=== PATIENT | female | born 1975 | race Caucasian/White ===

== ENCOUNTER 2023-09-07 11:59 | Emergency (ER) | payer OTHER, SELFPAY ==
[2023-09-07 12:21] VITALS: BP 121/92; PULSE 80; RESP 20; TEMP 36.8; O2SAT 98; BMI 30.2
[2023-09-07 13:31] VITALS: BP 149/97; PULSE 75; RESP 18; TEMP 36.6; O2SAT 99; BMI 30.2
[2023-09-07] MEDS: KETOROLAC TROMETHAMINE 30 MG/ML VIAL IM (14:27)
--- NOTE | 2023-09-07 14:30 | ED_ITS ---
HPI - General Adult General Chief complaint: Back Pain/Injury Stated complaint: BACK PAIN Time Seen by Provider: 09/07/23 13:26 Source: patient Mode of arrival: walk-in Limitations: no limitations History of Present Illness HPI narrative: Patient is a 48-year-old female who is presenting to the Emergency Room with chief complaint Of acute on chronic left lower back pain with radiation into the left buttock into the left lateral thigh that goes down into the knee. Patient has had this on and off in the past. Patient has had 3 lower lumbar surgeries in the past. Patient stated this started a few weeks ago, but has worsened yesterday or today. Patient has no urinary or bowel complaints. Patient has no loss of urine or pants. Patient has an appointment with Dr. Melendez tomorrow. Patient is here with her , patient drove to the Emergency Room. Patient has had 3 spinal surgeries in [place]. Patient lives in [place]. No specific injury, lifting, twisting or turning or any other acute events. . All systems are negative except as noted/marked. All systems reviewed and otherwise negative. . Nurses note and vital signs reviewed and patient is not hypoxic. General: The patient appears well and in no apparent distress. Patient is resting comfortably on cart. Patient is not toxic, lethargic, or listless Skin: Warm, dry, no pallor noted. There is no rash noted. No petechiae, purpura. Head: Normocephalic, atraumatic Eye: Normal conjunctiva, no drainage, EOMI. PERRL Ears, Nose, Mouth, and Throat: oral mucosa is moist. Cardiovascular: Regular Rate and Rhythm, no murmur, gallop, rub Respiratory: Patient is in no distress, no accessory muscle use, lungs are clear to auscultation, no wheezing, rales or rhonchi Back: non-tender, no CVA tenderness bilaterally to percussion. No CT LS midline pain GI: soft, obese; no tenderness to palpation, no masses appreciated. No rebound, guarding, or rigidity noted. No flank pain bilateral, No distention Musculoskeletal: Patient has full range of motion of all of the extremities, no motor, sensory, or focal neurological deficits Neurological: A&O x3, normal speech Psychiatric: Cooperative Related Data Home Medications Medication Instructions Recorded Confirmed aripiprazole 20 mg tablet 25 mg PO DAILY 09/07/23 09/07/23 duloxetine 60 mg capsule,delayed 120 mg PO DAILY 09/07/23 09/07/23 release gabapentin 600 mg tablet 600 mg PO TID 09/07/23 09/07/23 lorazepam 1 mg tablet 1 mg PO TID PRN dyspnea 09/07/23 09/07/23 lurasidone 40 mg tablet (Latuda) 40 mg PO DAILY 09/07/23 09/07/23 trazodone 100 mg tablet 200 mg PO DAILY 09/07/23 09/07/23 vortioxetine 10 mg tablet 10 mg PO DAILY 09/07/23 09/07/23 (Trintellix) Previous Rx's Medication Instructions Recorded hydrocodone 5 mg-acetaminophen 325 1 tab PO Q4H PRN pain #6 tabs 09/07/23 mg tablet methocarbamol 500 mg tablet 500 mg PO Q8H PRN muscle pain #10 09/07/23 tabs Allergies Allergy/AdvReac Type Severity Reaction Status Date / Time amoxicillin Allergy Hives Verified 09/07/23 13:26 doxycycline Allergy Hives Verified 09/07/23 13:26 pregabalin [From Lyrica] Allergy Hives Verified 09/07/23 13:26 vancomycin Allergy Hives Verified 09/07/23 13:26 ziprasidone [From Geodon] Allergy Hives Verified 09/07/23 13:26 PFSH PFSH Social History Smoking status: Current every day smoker Exam Constitutional Vital Signs, click to edit/add: Last Vital Signs Temp 97.9 F 09/07/23 13:31 Pulse 75 09/07/23 13:31 Resp 18 09/07/23 13:31 BP 149/97 H 09/07/23 13:31 Pulse Ox 99 09/07/23 13:31 O2 Del Method Room Air 09/07/23 13:31 Course Vital Signs Vital signs: Vital Signs Temperature 98.3 F 09/07/23 12:21 Pulse Rate 80 09/07/23 12:21 Respiratory Rate 20 09/07/23 12:21 Blood Pressure 121/92 H 09/07/23 12:21 Pulse Oximetry 98 09/07/23 12:21 Oxygen Delivery Method Nasal Cannula 09/07/23 12:21 Temperature 97.9 F 09/07/23 13:31 Pulse Rate 75 09/07/23 13:31 Respiratory Rate 18 09/07/23 13:31 Blood Pressure 149/97 H 09/07/23 13:31 Pulse Oximetry 99 09/07/23 13:31 Oxygen Delivery Method Room Air 09/07/23 13:31 Medical Decision Making MDM Narrative Medical decision making narrative: Patient drove to the Emergency Room. Patient stated that she had a hysterectomy, patient be given injection of Toradol. Patient was given a short course of [place] and Robaxin. Patient's had acute on chronic lower lumbar pain. She has had 3 spinal lumbar surgeries. Patient has an appointment with her PCP tomorrow. Education ice and stretching was discussed at bedside and on discharge. Work. Patient is not to use heat. Patient is here in the Emergency Room today, she has an appointment with Dr. Hernandez tomorrow. No questions at discharge. Discharge Plan Discharge Chief Complaint: Back Pain/Injury Clinical Impression: Lumbar radiculopathy, Sciatica Patient Disposition: Home, Self-Care Time of Disposition Decision: 14:20 Condition: Fair Prescriptions / Home Meds: New methocarbamol 500 mg tablet 500 mg PO Q8H PRN (Reason: muscle pain) Qty: 10 0RF hydrocodone-acetaminophen 5-325 mg tablet 1 tab PO Q4H PRN (Reason: pain) Qty: 6 0RF No Action aripiprazole 20 mg tablet 25 mg PO DAILY duloxetine 60 mg capsule,delayed release(DR/EC) 120 mg PO DAILY gabapentin 600 mg tablet 600 mg PO TID lorazepam 1 mg tablet 1 mg PO TID PRN (Reason: dyspnea) lurasidone [Latuda] 40 mg tablet 40 mg PO DAILY trazodone 100 mg tablet 200 mg PO DAILY Rx Instructions: at [facility] Trintellix 10 mg tablet 10 mg PO DAILY Instructions: Sciatica (ED), Acute Low Back Pain (ED), Lumbar Radiculopathy (ED), Back Pain (ED), Lower Back Exercises (ED) Additional Instructions: Continue using ice and stretching as discussed, do not use heat. Use medication as needed. See Dr. Melendez tomorrow for additional recommendations of prescriptions, therapy, or following up with fireworks display specialist. Stand Alone Forms: Portal Instructions Referrals: Justyn Melendez MD [Primary Care Provider] - 1 week
== END 2023-09-07 14:39 | disposition home or self-care (01) ==
PROVIDERS: Emergency Provider Emergency Medicine; PCP Family Medicine
DX: M54.16 Radiculopathy, lumbar region (principal); M54.30 Sciatica, unspecified side; Z79.899 Other long term (current) drug therapy; F17.200 Nicotine dependence, unspecified, uncomplicated; Z90.710 Acquired absence of both cervix and uterus
CPT/HCPCS: 96372; 99284; J1885

== ENCOUNTER 2024-03-31 07:20 | Outpatient (OUT) | payer OTHER, SELFPAY ==
--- OUTSIDE RECORDS SUMMARY | 2024-03-31 07:25 | XMS_ITS ---
Patient Summarization (C-CDA 2.1 CCD) Created on: March 31, 2024 JANIS GUO : 1975 Sex: Undifferentiated Author Organization Sample organization Care Team Providers Care Computer Trainer Name Role Phone Reji Melendez MD Unavailable Reji Melendez MD Primary Care Provider KINDRA FLORES Referring Unavailable KINDRA FLORES Attending Unavailable KINDRA FLORES Admitting Unavailable Reji Melendez Primary Care Physician Reji Melendez MD Primary Care Provider DIO MERCADO Admitting Unavailable DIO MERCADO Consulting Unavailable DIO MERCADO Attending Unavailable GABI ., DR MENDOZA Primary Care Unavailable GABI ., DR MENDOZA Consulting Unavailable GABI ., DR MENDOZA Attending Unavailable GABI ., DR MENDOZA Admitting Unavailable GABI ., DR MENDOZA Primary Care Unavailable [place], DR ARIK Schmidt Consulting Unavailable SANDRA, DR KINDRA Hercules Admitting Unavailable SANDRA, DR KINDRA Hercules Attending Unavailable GABI ., DR MENDOZA Primary Care Unavailable SANDRA, DR KINDRA Hercules Consulting Unavailable Justine Saunders Unavailable Justine Saunders Attending Unavailable Justine Saunders Admitting Unavailable Unavailable Primary Care Provider Unavailjarred Larios DMD, MD, Justin Unavailable [phone] PROVIDER, UNKNOWN Admitting Unavailable PROVIDER, UNKNOWN Attending Unavailable RALPH VICTORIA Referring Unavailable PROVIDER, UNKNOWN Admitting Unavailable PROVIDER, UNKNOWN Attending Unavailable MARIAELENA LARIOS Referring Unavailable MARIAELENA LARIOS Admitting Unavailable MARIAELENA LARIOS Attending Unavailable PROVIDER, UNKNOWN Admitting Unavailable PROVIDER, UNKNOWN Attending Unavailable Reji Melendez MD Primary Care Provider ANGELICA PAZ Attending Unavailable ANGELICA PAZ Referring Unavailable MARGUERITE CHILD Attending Unavailable HOY, REJI M Referring Unavailable HOY, REJI M Primary Care Unavailable MARGUERITE CHILD Attending Unavailable HOY, REJI M Referring Unavailable HOY, REJI M Primary Care Unavailable CLARIBELCLIFF Attending Unavailable HOY, REJI M Referring Unavailable HOY, REJI M Primary Care Unavailable MACYZAMARGUERITE Ahuja Attending Unavailable HOY, REJI M Referring Unavailable HOY, REJI M Primary Care Unavailable CLARIBELCLIFF Attending Unavailable HOY, REJI M Referring Unavailable HOY, REJI M Primary Care Unavailable CLARIBEL, CLIFF [place] Attending Unavailable HOY, REJI M Referring Unavailable HOY, REJI M Primary Care Unavailable MACYZAMARGUERITE Ahuja Attending Unavailable HOY, REJI M Referring Unavailable HOY, REJI M Primary Care Unavailable MACYZAMARGUERITE Ahuja Attending Unavailable HOY, REJI M Referring Unavailable HOY, REJI M Primary Care Unavailable CLARIBEL, CLIFF [place] Attending Unavailable HOY, REJI M Referring Unavailable HOY, REJI M Primary Care Unavailable MACYZAMARGUERITE Ahuja Attending Unavailable HOY, REJI M Referring Unavailable HOY, REJI M Primary Care Unavailable CLARIBEL, CLIFF [place] Attending Unavailable HOY, REJI M Referring Unavailable HOY, REJI M Primary Care Unavailable CLARIBEL, CLIFF [place] Attending Unavailable HOY, REJI M Referring Unavailable HOY, REJI M Primary Care Unavailable CLARIBEL, CLIFF [place] Attending Unavailable HOY, REJI M Referring Unavailable HOY, REJI M Primary Care Unavailable Allergies Allergy Classification Reported Allergen(s) Allergy Type Date of Onset Reaction(s) Facility (8 sources) Acetaminophen / oxyCODONE; Translations: [acetaminophen-ox ycodone] Drug Allergy 02-10-20 16 Unknown, Unknown (qualifier value), Anaphylaxis [facility] (1 source) Adhesive Tape Allergy to substance 02-10-20 16 Unknown [facility] (14 sources) Amoxicillin; Translations: [amoxicillin] Drug Allergy 02-10-20 16 Unknown, Unknown (qualifier value), Hives, Other [facility] (16 sources) Methadone; Translations: [methadone] Drug Allergy 02-10-20 16 Unknown, Unknown (qualifier value), Hives, Other, Other (See Comments) [facility] (10 sources) pregabalin; Translations: [pregabalin] Drug Allergy 02-10-20 16 Unknown, Unknown (qualifier value), Other (See Comments) [facility] (9 sources) ziprasidone; Translations: [ZIPRASIDONE HCL] Drug Allergy 02-10-20 16 Unknown, Hives, Other [facility] (1 source) Propoxyphene N-Acetaminophen Drug Allergy 02-10-20 16 Unknown [facility] (6 sources) Acetaminophen / oxyCODONE; Translations: [Percocet] Drug Allergy 04-17-20 14 Other [facility] (2 sources) Acetaminophen / Propoxyphene; Translations: [Darvocet A500] Drug Allergy Unknown (qualifier value) [facility] (2 sources) Adhesive bandage; Translations: [Adhesive Bandage] Propensity to adverse reactions (disorder) Unknown (qualifier value) [facility] (2 sources) Adhesive Tape; Translations: [Tape] Propensity to adverse reactions (disorder) Unknown (qualifier value) [facility] (14 sources) Doxycycline; Translations: [doxycycline] Drug Allergy 02-16-20 19 Unknown (qualifier value), Dizziness, Hives, Other [facility] (2 sources) pregabalin; Translations: [Lyrica] Drug Allergy 04-17-20 14 [facility] (1 source) Adhesive agent Drug allergy (disorder) 04-17-20 14 [facility] (1 source) Amoxicillin Drug Allergy 04-17-20 14 [facility] (1 source) Methadone Drug Allergy 04-17-20 14 [facility] (4 sources) Vancomycin; Translations: [VANCOMYCIN] Drug Allergy 01-29-20 23 Redness of Skin [facility] (1 source) ziprasidone Drug Allergy 05-08-20 16 [facility] (1 source) Darvocet-N 100 Drug allergy (disorder) 04-16-20 14 [facility] (4 sources) Adhesive Tape; Translations: [adhesive tape] Drug allergy 09-17-19 18 Unknown, Tears skin off [facility] (3 sources) oxyCODONE Drug Allergy 10-24-19 24 Unknown, Hives [facility] (2 sources) Propoxyphene Drug Allergy Unknown [employer] Other (3 sources) ziprasidone Drug Allergy 10-24-19 24 Unknown, [facility] (2 sources) Acetaminophen Drug Allergy 09-17-19 [facility] (1 source) Amoxicillin Drug Allergy 09-17-19 [facility] (1 source) Methadone Drug Allergy 06-18-20 [facility] (1 source) oxyCODONE Drug Allergy 09-17-19 [facility] (1 source) pregabalin Drug Allergy 09-17-19 [facility] (1 source) ziprasidone Drug Allergy 09-17-19 [facility] (4 sources) acetaminophen / propoxyphene; Translations: [PROPOXYPHENE N-APAP] Drug Allergy 06-30-20 23 Other [facility] (3 sources) Pregabalin Propensity to adverse reactions to drug 02-10-20 16 Other [facility] (3 sources) Vancomycin Drug Allergy 06-30-20 23 [facility] (4 sources) Bandage Tape; Translations: [BANDAGE TAPE] Propensity to adverse reactions 06-30-20 23 Other [facility] (1 source) Propoxyphene Drug Allergy 10-24-19 24 [facility] (4 sources) Adhesive Tape-Silicones; Translations: [ADHESIVE TAPE-SILICONES] Propensity to adverse reactions to drug 12-16-19 19 [facility] Work Phone: Encounters Encounter Date Encounter Type Care Provider Facility Start: 03-27-2024 End: 03-27-2024 ambulatory CLIFF Licona [facility] Start: 03-24-2024 End: 03-24-2024 ambulatory CLIFF [facility] Start: 03-20-2024 End: 03-20-2024 ambulatory CLIFF [facility] Start: 03-06-2024 End: 03-06-2024 [facility] Start[facility] 02-04-2024 End: 02-04-2024 ambulatory [facility] Start: 01-24-2024 End: 01-24-2024 ambulatory MARGUERITE SHARIFLeigha [facility] Start: 01-21-2024 End: 01-21-2024 ambulatory CLIFF Licona [facility] Start: 01-17-2024 End: 01-17-2024 ambulatory ANGELICA PAZ Not Available Start: 01-03-2024 End: 01-03-2024 ambulatory CLIFF Licona [facility] Start: 12-20-2023 End: 12-20-2023 ambulatory MARGUERITE ALONSO [facility]ARIFLeigha [facility] Start: 12-07-2023 Orders Only Marguerite Sharif berta 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 Work Phone: [facility] Start: 11-25-2023 End: 11-25-2023 ambulatory MARGUERITE SHARIFLeigha [facility] Start: 11-23-2023 Orders Only Marguerite Sharif berta S[employer]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 Work Phone: [facility] Start: 11-15-2023 End: 11-15-2023 ambulatory MARGUERITE SHARIFLeigha [facility] Start: 11-09-2023 Orders Only Marguerite hampton S[employer]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 Work Phone: [facility] Start: 10-24-2023 End: 10-24-2023 ambulatory [facility] Work Phone: Start: 10-24-2023 End: 10-24-2023 Patient encounter procedure [facility] Work Phone: Start: 09-13-2023 End: 09-13-2023 [facility] Start: 07-14-2023 End: 07-14-2023 Patient encounter procedure Mariaelena Larios DMD, MD Work Phone: [facility] Oral Surgery Comment on above: Post-operative state (Primary Dx) Start: 07-14-2023 End: 07-19-2023 ambulatory UNKNOWN PROVIDER Facility:[facility] Start: 07-05-2023 End: 07-06-2023 ambulatory MARIAELENA LARIOS Facility:[facility] Start: 07-05-2023 End: 07-05-2023 Subsequent hospital visit by physician Mariaelena Larios DMD, MD Work Phone: [facility] Ambulatory Surgery Comment on above: Caries (Primary Dx); Torus mandibularis Start: 06-30-2023 ambulatory UNKNOWN PROVIDER Facili ty:[facility] Start: 06-30-2023 End: 06-30-2023 Telephone encounter Christine Velascocaitlyn [employer]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 Work Phone: [facility] Pre Surgical Evaluation Comment on above: Arrived Start: 06-21-2023 Letter encounter Mariaelena Larios DMD, MD Work Phone: [facility] Oral Surgery Start: 06-18-2023 End: 06-21-2023 ambulatory UNKNOWN PROVIDER Facility:[facility] Start: 06-18-2023 End: 06-18-2023 Patient encounter procedure Mariaelena Larios DMD, MD Work Phone: [facility] Oral Surgery Comment on above: Caries (Primary Dx) Start: 05-08-2023 Office outpatient ne w 10 minutes Justine Saunders [facility] Start: 05-08-2023 End: 05-08-2023 ambulatory Justine Saunders [facility] [place] Other Start: 01-28-2023 End: 01-28-2023 ambulatory DIO MERCADO Facility: Start: 06-11-2022 Transcribe Orders Nanci [facility] Comment on above: Thoracic back pain, unspecified back pain laterality, unspecified chronicity (Primary Dx) Start: 05-20-2022 End: 05-21-2022 ambulatory OSAMA A SUZIEAK [facility] Start: 05-20-2022 End: 05-20-2022 Patient encounter procedure OSAMA A SANDRA [facility] Start: 05-14-2022 End: 05-15-[address] REJI MELENDEZ . Facility:[facility] Start: 05-05-2022 End: 05-06-[address] ARIK BERKOWITZ Facility:[facility] Start: 12-15-2021 End: 12-15-2021 Patient encounter procedure Alexus Grant PhD Work Phone: Audiology Comment on above: Dizziness (Primary D x); Meniere's disease of right ear; Migraine variant Medical Equipment Procedure Code Equipment Code Equipment Origin al Text Equipment Identifier Dates Removal of temporary sacral nerve leads for incontinence trial LEAD TEST 1 X 8 COMPACT FDA Start: 06-21-2017 Removal of temporary sacral nerve leads for incontinence trial LEAD TEST 1 X 8 COMPACT FDA Start: 06-21-2017 Implantation, neurostimulator, spinal cord ANCHOR INJEX BI-WING FDA Start: 09-20-2017 Implantation, neurostimulator, spinal cord LEAD PADDLE MRI 65CM FDA Start: 09-20-2017 Implantation, neurostimulator, spinal cord NEUROSTIM INTELLIS MRI BATTERY FDA Start: 09-20-2017 Immunizations Immunization Date Immunization Notes Care Provider [facility] 01-04-2021 Pfizer Monovalent (1 2+ yrs) SARS-COV-2 (COVID-19) vaccine, mRNA, spike protein, LNP, pres. free, 30 mcg/0.3mL dose (ABS=476) Mariaelena aLrios DMD, MD Work Phone: [facility] 05-29-2015 influenza, injectabl e, quadrivalent, preservative free Mariaelena Larios DMD, MD Work Phone: [facility] 05-29-2015 pneumococcal conjuga te vaccine, 13 valent Mariaelena Larios DMD, MD Work Phone: [facility] 05-29-2015 influenza virus vacc ine, unspecified formulation Mariaelena Larios DMD, MD Work Phone: [facility] Medications Current Medications Medication Drug Class(es) Dates Sig (Normalized) Sig (Original) acetaminophen 325 mg / HYDROcodone bitartrate 5 mg oral tablet (5 sources) Opioid Agonist Start: 07-05-2023 End: 07-08-2023 take 1 tablet by mouth every six hours as needed for pain hydrocodone-aceta minophen (NORCO) 5-325 mg per tablet Indications: Caries Take 1 Tablet by mouth every 6 hours as needed for Pain for up to 3 days. 12 Tablet 0 07/05/2023 07/08/2023 Active Start: 09-20-2017 End: 10-24-2023 take 1 tablet by mouth every six hours Hydrocodone-Acetaminophen Discontinued 1 TAB PO Q6H June 01, 2019 12:49pm October 24, 2023 11:52am Start: 06-18-2017 End: 09-20-2017 take 1 tablet by mouth every six hours Hydrocodone-Acetaminophen (Jones) 10-325 mg Tablet Discontinued 1 TAB PO Q6H September 17, 2017 12:00am September 20, 2017 12:44pm ARIPiprazole 20 mg oral tablet (10 sources) Atypical Antipsychotic Start: 10-24-2023 Aripipr azole Active MG PO October 24, 2023 12:00am Start: 05-08-2023 take 1 tablet by oleg th in the morning ARIPiprazole (ABILIFY) 20 mg tablet Indications: Severe episode of recurrent major depressive disorder, without psychotic features (CMS-HCC) Take 1 tablet (20 mg total) by mouth in the morning. 90 tablet 1 06/28/2023 Active Start: 04-07-2023 take 1 tablet by oleg th once daily in the morning ARIPiprazole (ABILIFY) 5 MG tablet take 1 tablet by mouth every morning TAKE WITH 20MG TABLET FOR A TOTAL DOSE OF 25 MG 0 04/07/2023 Active take 1 tablet by oleg th every twenty-four hours calcium chloride 0.0014 meq/ml / potassium chloride 0.004 meq/ml / sodium chloride 0.103 meq/ml / sodium lactate 0.028 meq/ml injectable solution (1 source) Start: 07-05-2023 lactated ringe rs iv infusion 12 hr carBAMazepine 400 mg extended release oral tablet (9 sources) Mood Stabilizer Start: 03-14-2021 take 1 mg by mouth twice daily Tegretol XR 400 mg oral tablet, extended release mg tab(s), Oral, BID, Refills(s) 0 Start Date: 03/14/21 Status: Ordered take 1 tablet by mouth every twe lve hours TEGretol 200 MG 1 tablet Orally Twice a day Active chlorhexidine gluconate 1.2 mg/ml mouthwash (3 sources) Start: 07-06-2023 take 15 mL by mouth twice daily chlorhexidine (PERIDEX) 0.12 % oral solution Take 15 mL by mouth 2 times daily. Swish and gently spit. Do not swallow 473 mL 1 07/06/2023 Active Start: 07-05-2023 chlorhexidine (PERIDEX) 0.12 % oral solution cyclobenzaprine hydrochloride 10 mg oral tablet (5 sources) Muscle Relaxant Start: 09-20-2017 End: 10-24-2023 take 1 tablet by mouth three times daily as needed cyclobenzaprine (FLEXERIL) 10 MG tablet Take 10 mg by mouth 3 times daily as needed. 0 05/08/2023 Active deutetrabenazine 6 mg oral tablet (2 sources) Start: 11-25-2023 take 1 tablet by mouth in the morning, then take 1 tablet by mouth at bedtime deutetrabenazine (AUSTEDO) 6 mg tablet Indications: Tardive dyskinesia Take 1 tablet (6 mg total) by mouth in the morning and 1 tablet (6 mg total) before bedtime. 60 tablet 2 11/25/2023 Active Start: 11-15-2023 take 1 tablet by oleg th in the morning, then take 1 tablet by mouth at bedtime deutetrabenazine (AUSTEDO) 6 mg tablet Indications: Tardive dyskinesia Take 1 tablet (6 mg total) by mouth in the morning and 1 tablet (6 mg total) before bedtime. 60 tablet 3 11/15/2023 Active diclofenac sodium 75 mg delayed release oral tablet (8 sources) Nonsteroidal Anti-inflammatory Drug Start: 10-24-2023 Diclofenac Sodium Active MG PO October 24, 2023 12:00am Start: 12-20-2020 diclofenac (VO LTAREN) 75 mg EC tablet take 1 tablet by oleg th every twelve hours DULoxetine 60 mg delayed release oral capsule (12 sources) Serotonin and Norepinephrine Reuptake Inhibitor Start: 10-24-2023 Duloxetine Active MG PO October 24, 2023 12:00am Start: 09-13-2023 take 2 capsules by m outh in the morning DULoxetine (CYMBALTA) 60 mg capsule Indications: Panic disorder , Severe episode of recurrent major depressive disorder, without psychotic features ([facility]) Take 2 capsules (120 mg total) by mouth in the morning. 180 capsule 1 09/13/2023 Active Start: 04-30-2023 take 2 capsules by m outh once daily in the morning duloxetine (CYMBALTA) 60 MG capsule Take 120 mg by mouth every morning. 0 04/30/2023 Active Start: 03-14-2021 take 1 mg by mouth twice daily Cymbalta 30 mg Cap-DR mg, Oral, BID, Refills(s) 0 Start Date: 03/14/21 Status: Ordered Start: 06-18-2017 End: 09-17-2017 take 1 tablet by mouth twice daily Duloxetine (Cymbalta) 30 mg Capsule,Delayed Release(Dr/Ec) Discontinued 1 TAB PO Twice daily June 17, 2017 11:00pm September 17, 2017 12:58pm Start: 06-18-2017 End: 06-01-2019 take 2 capsules by mouth once daily in the morning Duloxetine (Cymbalta) 60 mg Capsule,Delayed Release(Dr/Ec) Discontinued 120 MG PO Every morning June 17, 2017 11:00pm June 01, 2019 12:48pm take 1 capsule by mo [facility] every twenty-four hours Cymbalta 60 MG 1 capsule Orally Once a day Active gabapentin 600 mg oral tablet (10 sources) Anti-epileptic Agent Start: 03-14-2021 take 1 mg by mouth three times daily Neurontin 400 mg Cap mg cap(s), Oral, TID, Refills(s) 0 Start Date: 03/14/21 Status: Ordered Start: 06-01-2019 gabapentin (NE URONTIN) 300 mg capsule Start: 12-01-2018 take 1 tablet by oleg three times daily gabapentin (NEURONTIN) 600 mg tablet Indications: neuropathic pain Take 1 tablet (600 mg total) by mouth 3 (three) times a day Indications: neuropathic pain. 0 12/01/2018 Active Comment on above: Take by mouth. hyoscyamine sulfate 0.125 mg oral tablet (2 sources) Start: 03-14-2021 take 1 mg by mouth four times daily Levsin 0.125 mg SL Tab mg tab(s), Oral, QID, Refills(s) 0 Start Date: 03/14/21 Status: Ordered Start: 06-18-2017 End: 06-01-2019 take 1 mL by mouth before mealtime Hyoscyamine Sulfate Discontinued 5 ML PO Before meals June 17, 2017 11:00pm June 01, 2019 12:49pm ibuprofen 600 mg oral tablet (4 sources) Nonsteroidal Anti-inflammatory Drug Start: 07-05-2023 take 1 tablet by mouth every six hours as needed for pain ibuprofen (MOTRIN) 600 MG tablet Take 1 Tablet by mouth every 6 hours as needed for Pain. 30 Tablet 3 07/05/2023 Active Start: 05-08-2023 take 1 tablet by oleg th three times daily at mealtime as needed Ibuprofen 600 MG 1 tablet with food or milk as needed Orally tid prn for 10 day(s) May, Active LORazepam 1 mg oral tablet (9 sources) Benzodiazepine Start: 12-07-2023 take 1 tablet by mouth three times daily as needed for anxiety LORazepam (ATIVAN) 1 mg tablet Indications: Panic disorder Take 1 tablet (1 mg total) by mouth 3 (three) times a day as needed for anxiety. 90 tablet 0 12/07/2023 Active Start: 11-09-2023 take 1 tablet by oleg th three times daily as needed for anxiety LORazepam (ATIVAN) 1 mg tablet Indications: Panic disorder Take 1 tablet (1 mg total) by mouth 3 (three) times a day as needed for anxiety. 90 tablet 0 11/09/2023 Active Start: 06-14-2023 LORazepam (ATI VAN) 1 MG tablet Take 1 mg by mouth. 0 06/14/2023 Active Start: 06-01-2019 take 0.5 mg by mouth once feli y Lorazepam Active 0.5 MG PO Daily May 31, 2019 11:00pm take 1 tablet by oleg th every twenty-four hours Ativan 1 MG 1 tablet at bedtime as needed Orally Once a day Active lurasidone hydrochloride 80 mg oral tablet (1 source) Atypical Antipsychotic Start: 03-14-2021 take 1 mg by mouth once daily Latuda 80 mg oral tablet mg tab(s), Oral, Daily, Refills(s) 0 Start Date: 03/14/21 Status: Ordered meclizine hydrochloride 25 mg oral tablet (3 sources) Antiemetic Start: 03-14-2021 take 1 mg by mouth three times daily meclizine 25 mg Tab mg tab(s), Oral, TID, Refills(s) 0 Start Date: 03/14/21 Status: Ordered take 1 tablet by oleg th every twelve hours as needed meclizine (ANTIVERT) 25 MG tablet 1 tabl et as needed Orally every 12 hrs 0 Active medicinal THC (1 source) Start: 03-18-2021 medicinal THC medicinal THC Start Date: 03/18/21 Status: Ordered meloxicam 7.5 mg oral tablet (3 sources) Nonsteroidal Anti-inflammatory Drug Start: 12-27-2019 meloxicam (MOBIC) 15 mg tablet Start: 06-01-2019 End: 10-24-2023 take 1 mg by mouth once daily meloxicam 7.5 mg oral ta blet mg tab(s), Oral, Daily, Refills(s) 0 Start Date: 03/14/21 Status: Ordered methocarbamol 500 mg oral tablet (1 source) Muscle Relaxant Start: 10-24-2023 Methocarbamol Active MG PO October 24, 2023 12:00am naloxone hydrochloride 40 mg/ml nasal spray (2 sources) Opioid Antagonist Start: 07-05-2023 naloxone 4 m g/0.1 mL nasal liquid Use 1 [place] in one nostril (alternate sides) as needed for Drug Overdose for up to 1 dose. Every 2-3 mins. until help arrives. 2 Each 1 07/05/2023 Active ondansetron 4 mg disintegrating oral tablet (6 sources) Serotonin-3 Receptor Antagonist Start: 04-09-2023 ondansetron (ZOFRAN-ODT) 4 MG disintegrating tablet dissolve 1 tablet ON TONGUE four times a day if needed 0 04/09/2023 Active Start: 03-14-2021 take 1 mg by mouth t hree times daily ondansetron 4 mg Dis Tab mg tab(s), Oral, TID, Refills(s) 0 Start Date: 03/14/21 Status: Ordered Start: 06-18-2017 Ondansetron (Z ofran Odt) 4 mg Tablet,Disintegrating Active 8 MG PO Q12H June 17, 2017 11:00pm take 2 tablets by mo uth once daily Zofran 4 MG 2 tablets Orally Once a day Active traZODone hydrochloride 100 mg oral tablet (6 sources) Serotonin Reuptake Inhibitor Start: 10-24-2023 Trazodone Active MG PO October 24, 2023 12:00am Start: 09-13-2023 take 2 tablets by mo uth once daily traZODone (DESYREL) 100 mg tablet Indications: Severe episode of recurrent major depressive disorder, without psychotic features (CMS-HCC) , Insomnia, unspecified type Take 2 tablets (200 mg total) by mouth nightly. 180 tablet 3 09/13/2023 Active Start: 05-17-2023 take 2 tablets by mo uth once daily trazodone (DESYREL) 100 MG tablet take 2 tablets by mouth once daily NIGHTLY 0 05/17/2023 Active vortioxetine 10 mg oral tabl et (10 sources) Start: 10-24-2023 Vortioxetine ( Trintellix) 10 mg tablet Active MG PO October 24, 2023 12:00am Start: 09-13-2023 take 1 tablet by oleg th in the morning vortioxetine (TRINTELLIX) 20 mg tablet Indications: Panic disorder , Severe episode of recurrent major depressive disorder, without psychotic features (CMS-HCC) Take 1 tablet (20 mg total) by mouth in the morning. 90 tablet 1 09/13/2023 Active Start: 03-11-2023 vortioxetine ( TRINTELLIX) 10 MG TABS tablet Take 10 mg by mouth. 0 03/11/2023 Active take 1 tablet by oleg th once daily vortioxetine (Trintellix) 5 MG TABS tablet 1 tablet Orally Once a day 0 Active take 1.5 tablets by mouth every twenty-four hours Trintellix 10 MG 1.5 tablet Orally Once a day Active Completed/Discontinued Medications Medication Drug Class(es) Dates Sig (Normalized) Sig (Original) ALPRAZolam 1 mg oral tablet (2 sources) Benzodiazepine Start: 06-18-2017 End: 09-20-2017 take 1 tablet by mouth four times daily Alprazolam (Xanax) 1 mg Tablet Discontinued 1 MG PO Four times daily June 17, 2017 11:00pm September 20, 2017 8:55am Comment on above: Take 1 mg by mouth f our times daily. 2 ml amisulpride 2.5 mg/ml injection (1 source) Start: 07-05-2023 End: 07-05-2023 amisulpride (BARHEMSYS) injection 10 mg Start: 07-05-2023 End: 07-05-2023 amisulpride (BARHEMSYS) inje ction 10 mg amitriptyline hydrochloride 150 mg oral tablet (2 sources) Tricyclic Antidepressant Start: 12-30-2019 Amitriptyline HCl 15 0 mg tablet Start: 09-17-2017 End: 10-24-2023 take 150 mg by mouth once daily at bedtime Amitriptyline Discontinued 150 MG PO Daily at bedtime September 17, 2017 12:00am October 24, 2023 11:51am baclofen 10 mg oral tablet (1 source) gamma-Aminobutyric Acid-ergic Agonist Start: 06-01-2019 End: 10-24-2023 take 10 mg by mouth twice daily Baclofen Discontinued 10 MG PO Twice daily May 31, 2019 11:00pm October 24, 2023 11:51am bisoprolol fumarate 10 mg oral tablet (1 source) beta-Adrenergic Noah Start: 07-18-2019 bisoprolol (ZEBETA) 10 mg tablet Take by mouth. 0 07/18/2019 Active Comment on above: Take by mouth. busPIRone hydrochloride 15 mg oral tablet (3 sources) Start: 12-27-2019 busPIRone (BUSPAR) 15 mg tablet Start: 06-01-2019 End: 10-24-2023 busPIRone (BUSPAR) 10 mg tab let Take by mouth. 0 08/14/2019 Active Comment on above: Take by mouth. ceFAZolin 2000 mg injection (3 sources) Cephalosporin Antibacterial Start: End: ceFAZolin (ANCEF) 2,000 mg in dextrose 50 mL ivpb cetirizine hydrochloride 10 mg oral capsule (1 source) Histamine-1 Receptor Antagonist Cetirizine 10 mg cap Take by mouth. 0 Active Comment on above: Take by mouth. diazePAM 10 mg oral tablet (1 source) Benzodiazepine Start: 018 End: take 1 tablet by mouth every six hours Diazepam (Valium) 10 mg Tablet Discontinued 10 MG PO Q6H September 17, 2017 12:00am June 01, 2019 12:48pm docusate sodium 100 mg oral capsule (1 source) take 1 capsule by mouth twice daily docusate sodium (COLACE) 100 mg capsule Take 100 mg by mouth twice daily. 0 Active Comment on above: Take 100 mg by mouth twice daily. eszopiclone 3 mg oral tablet (1 source) eszopiclone (LUNESTA) 3 mg tab Take by mouth daily at bedtime. 0 Active Comment on above: Take by mouth daily at bedtime. hydroCHLOROthiazide 25 mg / triamterene 37.5 mg oral tablet (1 source) Potassium-sparing Diuretic, Thiazide Diuretic Start: End: Triamterene-Hydroc hlorothiazid Discontinued 1 TAB PO May 31, 2019 11:00pm October 24, 2023 11:53am hydrOXYzine hydrochloride 50 mg oral tablet (3 sources) Antihistamine Start: hydrOXYzine HCl (ATARAX) 50 mg tablet Start: 06-01-2019 End: 10-24-2023 hydrOXYzine HCl (ATARAX) 25 mg tablet lamoTRIgine 100 mg oral tablet (1 source) Mood Stabilizer, Anti-epileptic Agent Start: 06-18-2017 End: 10-24-2023 take 0.5 tablet by mouth once daily at bedtime Lamotrigine (Lamictal) 100 mg Tablet Discontinued 0.5 TAB PO Daily at bedtime June 17, 2017 11:00pm October 24, 2023 11:52am lansoprazole 30 mg delayed release oral capsule (1 source) Proton Pump Inhibitor Start: 12-27-2019 lansoprazole (PREVACID) 30 mg capsule linaclotide (2 sources) Guanylate Cyclase-C Agonist Start: 06-18-2017 End: 06-01-2019 take 1 capsule by mouth once daily Linaclotide (Linzess) 290 mcg Capsule Discontinued 290 MCG PO Daily June 17, 2017 11:00pm June 01, 2019 12:50pm linaclotide 290 mcg cap Take by mouth. 0 Active Comment on above: Take by mouth. omeprazole 20 mg delayed release oral tablet (1 source) Proton Pump Inhibitor Start: End: take 1 tablet by mouth twice daily Omeprazole Magnesium (Prilosec Otc) 20 mg Tablet,Delayed Release (Dr/Ec) Discontinued 20 MG PO Twice daily September 17, 2017 12:00am June 01, 2019 12:50pm OXcarbazepine 150 mg oral tablet (2 sources) Anti-epileptic Agent Start: End: take 150 mg by mouth once daily at bedtime Oxcarbazepine Discontinued 150 MG PO Daily at bedtime May 31, 2019 11:00pm October 24, 2023 11:52am Comment on above: Take by mouth. abuse-deterrent 12 hr oxyCODONE hydrochloride 40 mg extended release oral tablet (1 source) Opioid Agonist Start: End: take 1 tablet by mouth every twelve hours, then take 1 tablet by mouth every hour Oxycodone (Oxycontin) 40 mg Tablet,Oral Only,Ext.Rel.12 Hr Discontinued 40 MG PO Q12H June 17, 2017 11:00pm June 01, 2019 12:50pm pantoprazole 40 mg oral granules (1 source) Proton Pump Inhibitor take 40 mg by mouth twice daily before mealtime pantoprazole (PROTONIX) 40 mg grps Take 40 mg by mouth twice daily before meals (0600/1600). 0 Active Comment on above: Take 40 mg by mouth twice daily before meals (0600/1600). pilocarpine hydrochloride 5 mg oral tablet (1 source) Cholinergic Receptor Agonist Start: End: take 1 tablet by mouth three times daily Pilocarpine Hcl (Salagen (Pilocarpine)) 5 mg tablet Discontinued 5 MG PO Three times daily May 31, 2019 11:00pm October 24, 2023 11:52am prazosin 2 mg oral capsule (1 source) alpha-Adrenergic Noah Start: prazosin (MINIPRESS) 2 mg cap 24 hr propranolol hydrochloride 80 mg extended release oral capsule (1 source) beta-Adrenergic Noah Start: End: take 80 mg by mouth once daily Propranolol Discontinued 80 MG PO Daily May 31, 2019 11:00pm October 24, 2023 11:52am PV W-O STEVE/FERROUS FUMARATE/FA (M-VIT ORAL) (1 source) PV W-O STEVE/MCKENNA US FUMARATE/FA (M-VIT ORAL) Take by mouth. 0 Active Comment on above: Take by mouth. sulfamethoxazole 800 mg / trimethoprim 160 mg oral tablet (1 source) Dihydrofolate Reductase Inhibitor Antibacterial, Sulfonamide Antimicrobial Start: 018 End: 019 take 1 tablet by mouth every twelve hours Sulfamethoxazole-Tr imethoprim (Bactrim Ds) 800-160 mg Tablet Discontinued 1 TAB PO Q12H September 20, 2017 12:00am June 01, 2019 12:50pm Toradol 30 mg/ml (2 sources) Start: 023 Toradol 30 mg/ml May, 30 mg 24 hr venlafaxine 150 mg extended release oral capsule (2 sources) Serotonin and Norepinephrine Reuptake Inhibitor Start: 020 venlafaxine ER (EFFEXOR XR) 150 mg 24 hr capsule Start: 12-06-2019 venlafaxine (E FFEXOR) 75 mg tablet zolpidem tartrate 10 mg oral tablet (1 source) gamma-Aminobutyric Acid-ergic Agonist Start: 09-17-2017 End: 06-01-2019 take 1 tablet by mouth at bedtime Zolpidem (Ambien) 10 mg Tablet Discontinued 10 MG PO Bedtime September 17, 2017 12:00am June 01, 2019 12:51pm Payers Date Payer Category Payer Self-pay 2022 Private Health Insurance [facility] PLAN [id number] 2022-Present [phone] [address] [place] [address] [id number] 2020 Medicaid [id number] 2019 Medicaid [facility] MEDICAID [facility] [employer] PL[employer] MEDICAID [id number] 2019-Present [phone] [address] [place] [address] Medicaid [id number] 1975 Unknown [id number] 2.16.840.1.404795.3.579. 2.727 1975 Unknown [id number] 2.16.840.1.339640.3.579. 2.593 1975 Unknown [id number] 2.16.840.1.364733.3.579. 2.593 1975 Unknown [id number] 2.16.840.1.488557.3.579. 2.593 1975 Unknown [id number] 2.16.840.1.280468.3.579. 2.732 1975 Unknown [id number] 2.16.840.1.829163.3.579. 2.732 1975 Unknown [id number] 2.16.840.1.667818.3.579. 2.732 1975 Unknown [id number] 2.16.840.1.533464.3.579. 2.732 1975 Unknown [id number] 2.16.840.1.708539.3.579. 2.1259 1975 Unknown [id number] 2.16.840.1.380042.3.579. 2.1259 1975 Unknown [id number] 2.16.840.1.874341.3.579. 2.1259 1975 Unknown [id number] 2.16.840.1.592790.3.579. 2.1286 1975 Unknown [id number] 2.16.840.1.494840.3.579. 2.1286 1975 Unknown [id number] 2.16.840.1.855922.3.579. 2.1286 1975 Unknown [id number] 2.16.840.1.725908.3.579. 2.1286 1975 Unknown [id number] 2.16.840.1.447571.3.579. 2.1286 1975 Unknown [id number] 2.16.840.1.688165.3.579. 2.1286 1975 Unknown [id number] 2.16.840.1.141753.3.579. 2.1286 1975 Unknown [id number] 2.16.840.1.304940.3.579. 2.1286 1975 Unknown [id number] 2.16.840.1.865591.3.579. 2.1286 1975 Unknown [id number] 2.16.840.1.668463.3.579. 2.1286 1975 Unknown [id number] 2.16.840.1.856824.3.579. 2.1286 1975 Unknown [id number] 2.16.840.1.594962.3.579. 2.1286 1975 Unknown [id number] 2.16.840.1.576292.3.579. 2.1286 1959 Private Health Insurance [id number] 1959 Unknown [id number] Unknown [id number] 2.16.840.1.698321.3.579. 2.531 Plan of Treatment Date Care Activity Detail Author Start: 2025 Shingles (RZV) Vacci ne (1 of 2) Shingles (RZV) Vaccine (1 of 2) [facility] Start: 11-24-2024 Tobacco Screening Tobacco Screening [facility] Start: 11-14-2024 Tobacco Screening Tobacco Screening [facility] Start: 09-13-2024 Tobacco Screening Tobacco Screening [facility] Start: 05-07-2024 Influenza vaccination Influenza Vacc ine [facility] Start: 03-16-2024 Tobacco Counseling Tobacco Counselin g [facility] Start: 09-16-2023 Adult BMI Screening Adult BMI Screen ing [facility] Start: 09-16-2023 Depression Screening Depression Scre ening [facility] Start: 07-14-2023 End: 07-14-2023 Patient encounter procedure [facility] Oral Surgery Start: 07-05-2023 End: 07-05-2023 Admission to same day surgery center [facility] Ambulatory Surgery Comment on above: EXTRACTION, TOOTH Start: 07-05-2023 End: 07-05-2023 EXTRACTION, TOOTH [facility] Start: 07-05-2023 Subsequent hospital visit by physician [facility] Ambulatory Surgery Start: 06-30-2023 End: 06-30-2023 Telephone encounter 06/30/2023 1:45 PM EDT Telephone [facility] Pre Surgical Evaluation [address] [place] [address] Christine Krishnan APRN-PUMP SERVICER SUPERVISOR [address] [place] [address] [facility] Pre Surgical Evaluation Start: 05-07-2023 COVID-19 Vaccine ( season) COVID-19 Vaccine ( season) [facility] Start: 05-07-2023 Influenza vaccination [facility] Start: 07-06-2022 End: 07-06-2022 Admission to same day surgery center 07/06/2022 Evaluation Spine Surgery Reji Melendez MD [address] [facility] [place] [address] [place] [address] Peace Nelson, PUMP SERVICER SUPERVISOR [address] [place] [address] [facility] Spine Surgery Start: 05-07-2022 Influenza vaccination C [facility] Start: 01-25-2021 COVID-19 VACCINE (2 - Pfizer 3-dose series) COVID-19 VACCINE (2 - Pfizer 3-dose series) [facility] Start: 2020 Cholesterol [Mass/volume] in Serum or Plasma Cholesterol [facility] Start: 2020 COLOGUARD (FIT-DNA) COLOGUARD (FIT-D NA) [facility] Start: 2020 Colonoscopy COLONOSCOPY [facility] Start: 2020 COLORECTAL CANCER SCREENING COLORECTAL CANCER SCREENING [facility] Start: [address] COLONOGRAPHY [facility] Start: 2020 DIABETES SCREEN DIABETES SCREEN [facility] Start: 2020 FECAL OCCULT BLOOD FECAL OCCULT BLOO D [facility] Start: 2020 LIPID SCREEN LIPID SCREEN [facility] Start: 2020 Screening for malign ant neoplasm of colon [facility] Start: 2020 SIGMOIDOSCOPY SIGMOIDOSCOPY [facility] Start: 2015 Mammography MAMMOGRAM [facility] Start: 2015 Screening for malign ant neoplasm of breast Mammography [facility] Start: 07-24-2015 Pneumococcal vaccination Pneumococcal Vaccine(s) (2 - PPSV23 or PCV20) [facility] Start: 2005 HPV TESTING HPV TESTING [facility] Start: 1996 PAP TESTING PAP TESTING [facility] Start: 1996 Screening for malign ant neoplasm of cervix Pap Smear [facility] Start: 1994 DTaP,Tdap and Td Vaccines (1 - Tdap) DTaP,Tdap and Td Vaccines (1 - Tdap) [facility] Start: 1994 Urine microalbumin profile DTAP,TDAP,TD (1 - Tdap) [facility] Start: 1993 HEPATITIS [facility] Start: 1993 Hepatitis C screening O [facility] Start: 1993 HIV SCREENING HIV SCREENING [facility] Start: 1993 Tetanus + diphtheria + acellular pertussis vaccine (product) Tdap Booster [facility] Start: 1990 HIV screening [facility] Start: 1987 Depression screening using PHQ-9 (Patient Health Questionnaire 9) score Depression Screening (PHQ-2/9) [facility] Start: 1978 History and physical examination, annual for health maintenance Wellness Visit [facility] Start: 02-12-1976 COVID-19 Vaccine (#1) COVID-19 Vacci ne (#1) [facility] Start: 1975 Screening for malign ant neoplasm of cervix Pap Smear [facility] Start: 1975 Screening for malign ant neoplasm of colon [facility] Start: 1975 Tetanus vaccination Tetanus: Every 1 0yrs [facility] alveoloplasty in conjunction with extractions - one to three teeth or tooth spaces, per quadrant ALVEOLOPLASTY W/EXTRACT 1-3 Procedures Routine Caries Ordered: 07/05/2023 [facility] Comment on above: Ordered: 07/05/2023 Excision torus mandibularis EXCISION, TORUS MANDIBULARIS Procedures Routine Torus mandibularis Ordered: 07/05/2023 [employer] Comment on above: Ordered: 07/05/2023 extraction, erupted tooth or exposed root (elevation and/or forceps removal) EXTRACTION ERUPTED TOOTH/EXR Procedures Routine Caries Ordered: 07/05/2023 [employer] Work Phone: Comment on above: Ordered: 07/05/2023 EXTRACTION, TOOTH EXTRACTION, TO OTH Routine scheduled [facility] End: 07-05-2023 Urine test visual color cmprsn meths URINE HCG-IN OFFICE Lab Routine One time for 1 Occurrences starting 07/05/2023 until 07/05/2023 [employer] Work Phone: Comment on above: One time for 1 Occur rences starting 07/05/2023 until 07/05/2023 Problems Active Problems Problem Classification Problem Date Documented Da te Episodic/Chronic Abdominal pain (5 sources) Left lower quadrant pain; Translations: [Abdominal pain] Onset: 3 Episodic Administrative/social admission (2 sources) Counseling procedure with explicit context; Translations: [Tobacco abuse counseling] Episodic Anxiety disorders (13 sources) Panic disorder; Translations: [Generalized anxiety disorder] Onset: 2 03-14-2021 Chronic Asthma (1 source) Unspecified asthma, uncomplicated; Translations: [UNSPECIFIED ASTHMA UNCOMPLICATED] Onset: 3 Chronic Conditions associated with dizziness or vertigo (8 sources) Meniere's disease of right inner ear; Translations: [Meniere's disease, right ear] Onset: 9 Chronic Disorders of teeth and jaw (11 sources) Dental caries; Translations: [Dental caries, unspecified] Onset: 3 Resolved: 3 06-18-2023 Episodic Esophageal disorders (10 sources) Gastroesophageal reflux disease; Translations: [Gastro-esophageal reflux disease without esophagitis] Onset: 3 02-10-2016 Chronic Genitourinary symptoms and ill-defined conditions (7 sources) Urinary incontinence; Translations: [Unspecified urinary incontinence] Onset: 3 06-18-2023 Chronic Genitourinary symptoms and ill-defined conditions (2 sources) Frequency of micturition Episodic Headache; including migraine (1 source) Migraine variants; Translations: [Other migraine, not intractable, without status migrainosus] Chronic Immunizations and screening for infectious disease (1 source) Contact with and (suspected) exposure to other viral communicable diseases; Translations: [Contact with or exposure to other viral diseases] 10-24-2023 Episodic Mood disorders (19 sources) Depressive disorder; Translations: [Depression] Onset: 2 02-10-2016 Chronic Nausea and vomiting (2 sources) Vomiting; Translations: [Vomiting, unspecified] Episodic Other and unspecified benign neoplasm (1 source) Benign neoplasm of soft tissue 03-14-2021 Episodic Other connective tissue disease (1 source) Arthrodesis status; Translations: [ARTHRODESIS STATUS] Onset: 3 Episodic Other ear and sense organ disorders (3 sources) Hearing loss; Translations: [Unspecified hearing loss, unspecified ear] Onset: 9 12-15-2018 Chronic Other gastrointestinal disorders (2 sources) Irritable bowel syndrome characterized by constipation; Translations: [Irritable bowel syndrome with constipation] Chronic Other gastrointestinal disorders (2 sources) Esophageal dysphagia; Translations: [Dysphagia, unspecified] Episodic Other gastrointestinal disorders (3 sources) Dysphagia; Translations: [Dysphagia, unspecified] 08-18-2023 Episodic Other gastrointestinal disorders (3 sources) Constipation; Translations: [Constipation, unspecified] 08-18-2023 Episodic Other hereditary and degenerative nervous system conditions (2 sources) Tardive dyskinesia; Translations: [Drug induced subacute dyskinesia] Onset: 4 11-15-2023 Episodic Other nervous system disorders (9 sources) Chronic pain syndrome; Translations: [Chronic pain syndrome] Onset: 6 02-10-2016 Chronic Other nervous system disorders (2 sources) Chronic pain; Translations: [Other chronic pain] Chronic Other skin disorders (1 source) Actinic keratosis 03-19-2021 Episodic Other upper respiratory infections (3 sources) Sinusitis; Translations: [Chronic sinusitis, unspecified] Onset: 9 12-15-2018 Chronic Other upper respiratory infections (1 source) Sore throat symptom; Translations: [Acute pharyngitis, unspecified] 10-24-2023 Episodic Residual codes; unclassified (4 sources) Obstructive sleep apnea syndrome; Translations: [Obstructive sleep apnea (adult) (pediatric)] Onset: 3 03-14-2021 Chronic Residual codes; unclassified (3 sources) Sleep apnea; Translations: [Sleep apnea, unspecified] Onset: 1 01-02-2021 Chronic Residual codes; unclassified (1 source) Acquired absence of both cervix and uterus; Translations: [ACQUIRED ABSENCE BOTH CERVIX AND UTERUS] Onset: 3 Episodic Residual codes; unclassified (1 source) Postoperative state; Translations: [Other specified postprocedural states] 07-14-2023 Episodic Residual codes; unclassified (1 source) Other specified postprocedural states; Translations: [Other specified postprocedural states] Onset: 3 Episodic Residual codes; unclassified (1 source) Family history of cancer of colon; Translations: [Family history of malignant neoplasm of digestive organs] 08-18-2023 Episodic Skin and subcutaneous tissue infections (2 sources) Cellulitis of groin; Translations: [Cutaneous abscess of groin] Onset: 3 Episodic Spondylosis; intervertebral disc disorders; other back problems (14 sources) Postlaminectomy syndrome, not elsewhere classified; Translations: [Lumbosacral spondylosis] Onset: 2 Chronic Spondylosis; intervertebral disc disorders; other back problems (7 sources) Backache; Translations: [Dorsalgia, unspecified] Onset: 2 02-10-2016 Episodic Sprains and strains (2 sources) Strain of muscle, fascia and tendon of lower back, initial encounter Episodic Substance-related disorders (5 sources) Smoker; Translations: [Nicotine dependence, unspecified, uncomplicated] Onset: 2 02-10-2016 Chronic Unclassified (1 source) Seborrheic keratosis 03-19-2021 Unclassified (1 source) Frequency of micturition; Translations: [Frequency of micturition] Onset: 3 Unclassified (1 source) BH Diagnostic Assessment Onset: 4 Past or Other Problems Problem Classification Problem Date Documented Da te Episodic/Chronic Conditions associated with dizziness or vertigo (11 sources) Dizziness; Translations: [Dizziness and giddiness] Onset: 12-15-2018 Episodic Deficiency and other anemia (1 source) Anemia, unspecified; Translations: [ANEMIA UNSPECIFIED] Onset: 05-17-2022 Episodic Diabetes mellitus without complication (1 source) Other abnormal glucose; Translations: [OTHER ABNORMAL GLUCOSE] Onset: 05-17-2022 Episodic Diseases of mouth; excluding dental (3 sources) Xerostomia; Translations: [Disturbances of salivary secretion] Onset: 01-11-2019 01-11-2019 Episodic Mood disorders (3 sources) Mood disorders Onset: 09-16-2022 09-16-2022 Mycoses (4 sources) Tinea cruris; Translations: [Candidiasis of mouth] Onset: 12-29-2018 Resolved: 03-23-2019 03-23-2019 Episodic Other circulatory disease (4 sources) Orthostatic hypotension; Translations: [ORTHOSTATIC HYPOTENSION] Onset: 05-14-2022 Episodic Other connective tissue disease (4 sources) H/O Spinal surgery; Translations: [Arthrodesis status] Onset: 02-10-2016 02-10-2016 Episodic Other hereditary and degenerative nervous system conditions (1 source) Drug induced subacute dyskinesia; Translations: [Drug induced subacute dyskinesia] Onset: 11-15-2023 Episodic Other upper respiratory disease (3 sources) Nasal obstruction; Translations: [Other specified disorders of nose and nasal sinuses] Onset: 12-15-2018 12-15-2018 Episodic Residual codes; unclassified (1 source) Insomnia, unspecified; Translations: [Insomnia, unspecified] Onset: 09-13-2023 Episodic Procedures Date Procedure Procedure Detail Performing Clinician Start: 01-03-2024 Follow-up visit Follow-up CLIFF LUGOOUR Start: 10-24-2023 COVID/Influenza Anti gen (POC) Start: 10-24-2023 Quick Strep (POC) Start: 09-16-2022 Adult depression scr eening assessment Marguerite JULESPUMP SERVICER SUPERVISOR Work Phone: Appendectomy section Cholecystectomy Decompression of med cathy nerve KINDRA FLORES Hysterectomy KINDRA FLORES Inguinal herniorrhaphy KINDRA FLORES Results Test Name Value Interpretation Reference Range Facility No Panel InformationOrdered By: Nanci Spangler on 10-24-2023 COVID/Influenza Antigen (POC) [facility] Quick Strep (POC) [facility] Progress Noteson 07-14-2023 Director Of Vocational Training Authentication Interface Message Text [facility] TELEPHONE FOLLOW UP VISIT Chief Complaint: Pt presents for telephone follow up 1 week s/p full mouth extraction and mandibular anthony removal. Endorses mild pain which has improved significantly since surgery, minimal swelling, no drainage. Reports no concerns. Review of Systems: no change Assessment / Diagnosis: Normal postoperative course. Healing as expected. Plan: Follow-Up: PRN Follow up sooner with new or worsening symptoms. Milagro Varela DDS Normal [employer] [facility] Anesthesia Postprocedure Ruth luationon 07-05-2023 Director Of Vocational Training Authentication Interface Message Text Anesthesia Postoperative Assessment: Vital Signs (most recent): BP 151/101 (BP Location: left arm) Comment: Dr. Sena gave IV BP medication at bedside. Pulse 86 Temp 36.1 ???C (97 ???F) (Temporal) Resp 18 Ht 5' 4 (1.626 m) Wt 186 lb (84.4 kg) SpO2 96% BMI 31.93 kg/m??? Anesthesia Post Evaluation Level of consciousness: awake Post-procedure exam normal. Body temperature, hydration status, PONV and pain evaluated and addressed. Pain management: adequate Hydration status: normal PONV:No nausea/vomiting reported Cardiopulmonary status stable Respiratory status: acceptable Cardiovascular status: acceptable ANESTHESIA NOTABLE EVENTS: No notable events documented. 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 Neuro/Psych (+) depression, Cardiovascular - negative ROS (+) Surgical risk: intermediate; Cardiac condition: no apparent, No previous ECG available GI/Hepatic/Renal - negative ROS Heme/Other - negative ROS Physical Exam Airway Mallampati: II TM distance: Adequate Micrognathia: Not present Jaw opening: Adequate Neck flexion: Adequate Dental PE (+) intact Pulmonary - pulmonary exam normal Cardiovascular - cardiovascular exam normal Neuro - neurological exam normal Plan Anesthesia plan: general (ETT) Medications may include (but not limited to): anxiolytics, narcotic analgesics, IV hypnotics, neuromuscular blockers and inhalational analgesics Pain management: May include (but not limited to): IV, oral, anxiolytics, narcotic analgesics, local anesthetic and nerve block Anesthesia risks / alternatives discussed pre-op Questions answered / anesthesia plan accepted Past medical history, surgical history, allergies, and medications reviewed. Pertinent laboratory tests, EKG, imaging, and consults reviewed and I have personally seen and evaluated the patient, repeating leary portions of the history and physical examination. Attestation: Anesthesia options were discussed with the patient and/or legal claim representative. The risks, benefits and alternatives were reviewed. Questions regarding anesthesia were answered. Patient and/or legal claim representative knows such anesthetics and procedures may be performed by Resident physicians, Certified Anesthesiologist Assistants, or Certified Nurse Anesthetists under the supervision of a physician. The patient /or the patient's legal claim representative agree with the plan for anesthesia. 47 yo F presents for teeth extraction. No past medical history on file. No past surgical history on file. Social History Socioeconomic History * Marital status: Single Tobacco Use * Smoking status: Every Day Current packs/day: 0.00 Types: Cigarettes, E-cigarette Substance and Sexual Activity * Alcohol use: Not Currently * Drug use: Not Currently No current facility-administere d medications on file prior to encounter. No current outpatient medications on file prior to encounter. Allergies Allergen Reactions * Bandage Tape Other * Doxycycline Dizziness, Hives and Other * Methadone Hives and Other Other reaction(s): Unknown * Percocet Other * Amoxicillin Hives and Other * Darvocet [Propoxyphene N-Apap] Other * Pregabalin Other aggression * Vancomycin Other reaction(s): Ruth's Syndrome * Ziprasidone Hcl Hives and Other Sudhakar Sena MD Normal [facility] Anesthesia Transfer Of Careo n 07-05-2023 Director Of Vocational Training Authentication Interface Message Text Patient taken to PACU. Patient was awake, comfortable and stable on arrival. Anesthesia Transfer of Care Note Past Medical History: No past medical history on file. Sleep Apnea/Positive STOP-BANG: No Problem List: Patient Active Problem List: Chronic pain disorder [G89.4] Bipolar disorder (HCC) [F31.9] Dizziness [R42] Urinary incontinence [R32] Acid reflux [K21.9] Meniere's disease [H81.09] Severe episode of recurrent major depressive disorder, without psychotic features (HCC) [F33.2] Obstructive sleep apnea syndrome [G47.33] S/P laminectomy with spinal fusion [Z98.1] Past Surgical History: There is no previous surgical history on file. Allergies: Bandage tape, Doxycycline, Methadone, Percocet, Amoxicillin, Darvocet [propoxyphene n-apap], Pregabalin, Vancomycin, and Ziprasidone hcl Basic Operating Room Facts: Surgeon(s): Mariaelena Larios DMD, MD Anesthesiologist: Sudhakar Sena MD CAA: Ailyn Esaton CAA EXTRACTION, TOOTH Intraoperative Events: No acute event ASA: 1 EBL: Not documented Urine Not documented Lactated Ringers and NaCl 0.9%: Fluid Totals (Filter: LR and NaCl 0.9% Medications Shown) Medication Calculated Total Lactated Ringers 0 mL / 1 bag Cell Saver: Not documented Blood Volume Values: Blood Products None MTP Blood: MTP PRBC: Not documented MTP FFP: Not documented MTP PLT: Not documented MTP Cryo: Not documented MTP Whole Blood: Not documented Current Vasoactive Medications: {Vasoactive Medications: None Lines, Drains, Airways Peripheral IV Access: 07/05/23 1249 22 gauge Right Antecubital (Active) Site Assessment WNL;Dressing intact 07/05/23 1600 Infusion Status Port #1 Infusing;Patent 07/05/23 1600 Airway Insertion Details [REMOVED] Advanced Airway: ETT, Nasal;Cuffed #6.5 (Removed) 07/05/23 1526 Pre-Oxygenation/ Induction: Rapid Sequence Induction?: Mask Ventilation: Easy;w/nasal airway Blade size: Mac 3 Visualization: Grade 1 Airway Type: ETT, Nasal;Cuffed Airway Size: #6.5 Post Insertion Assessment: Confirmation: Equal bilateral breath sounds, CO2 confirmed # Attempts >1: Special Equipment: Present on Admission?: Previously Removed / Not Present: Removal Reason: Not Removed at Discharge: Removed 07/05/23 1647 Location (cm) 26 07/05/23 1527 Measured from: Naris 07/05/23 1527 Secured via: Taped 07/05/23 1527 Site Assessment WNL 07/05/23 1527 All non-working IVs have been removed: Yes Laboratory Data: CBC (last 3 years, up to 5 values) None Basic Metabolic Panel None Basic Metabolic Panel None No results found for: INR No result for BNP LFT's (last 3 years, up to 5 values) None Arterial Blood Gases None Hand off Completed: Yes 1. The patient was identified. 2. Pertinent medical history was relayed. 3. A brief discussion was had about any pertinent surgical/ procedural issues. 4. Intraoperative/ anesthetic management issue and concerns were discussed. 5. Plans for the early post-operative period relayed. 6. An opportunity for questions and acknowledgment of understanding of the report was received. Sudhakar Sena MD Normal [facility] Noteon 07-05-2023 Director Of Vocational Training Authentication Interface Message Text [facility] Division of analysis mgr [address] [place] [address] [place] [address] OPERATIVE NOTE Name: Janis Guo MR#: [id number] ENC#: Data Unavailable Surgical Case #: Data Unavailable Date of Procedure: 07/05/2023 ? 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 ATTENDING SURGEON: Mariaelena Larios ? FIRST SURGEON: Mariaelena Larios DMD, MD ? SECOND SURGEON: Renae Mccarty? ANESTHESIA: General anesthesia via nasal endotracheal tube intubation supplemented with 20 mL of a 50/50 mixture of 1% lidocaine with 1:100,000 epinephrine and 0.5% Marcaine. ? SPECIMENS: none ? ESTIMATED BLOOD LOSS: 25 mL. ? IV FLUIDS: 500 mL. ? FINDINGS: caries. ? DESCRIPTION OF OPERATION: The patient was taken to the operating room on a cart and transferred onto the operating room table under thier own power. The patient was then placed in the supine position. A time-out was conducted to confirm correct patient and procedure to be performed. Anesthesia team, Surgical staff and Nursing team all agreed on correct patient and laterality of the procedure. At this time care of the patient was transferred over to the Anesthesia Service for induction of general anesthetic and intubation. The patient was intubated via nasal endotracheal tube intubation. The tube was secured and care of the patient was transferred back to the Oral Maxillofacial Surgery service for continuation of the procedure. The patient was then prepped and draped in usual sterile fashion and the oral cavity was suctioned clear and A throat pack was placed deep in theoropharynx. Routine extraction of tooth # 2-9,11,14,15 on the maxilla and #18,20,22-31 on the mandible was accomplished by reflecting a full thickness mucoperiosteal flap around the teeth, followed by atraumatic delivery with elevator and forceps. Socket inspected, curettage as needed, followed by saline irrigation. Alveoplasty was performed in the bilateral mandible and maxilla by reflecting a full thickness mucoperiosteal flap, removal of prominent buccal bone areas with rongeur and bone file in order to accomplish smooth contour of the alveolar bone. A lingual flap was elevated on the lingual of the mandible bilaterally. A pineapple bur was used to reduce the lingual torus. The sites were irrigated, and closed with 3-0 chromic gut. At the completion of the procedure, the bite block and throat pack were removed, gauze was placed in the mouth for hemostasis, and the patient was transferred in stable condition to the recovery room for continued monitoring. The oral cavity was suctioned clear and the throat pack was removed. After wound closure was accomplished care of the patient was transferred back to the Anesthesia Service for emergence from the general anesthetic and extubation. The patient was extubated without incidence and transferred back to a cart where he was taken to the Post Anesthesia Care Unit for further monitoring. The patient was stable during the entire procedure. There were no complications. Dr. Larios was present for all critical parts of the procedure. ? ? ? Mariaelena Larios DMD, MD Normal [facility] [employer] [facility] [employer] [facility] [employer] Pablo Director Of Vocational Training Authentication Interface Message Text Telephone History Janis Guo, [id number] 06/30/[birth year]23 47 year old Patient was identified by name and date of . Christine Krishnan APRN-KETTY HISTORY OF PRESENT ILLNESS: Janis Guo is a 47 year old female pt who is seen here today for pre-surgical evaluation for EXTRACTION, TOOTH. She has a h/o Caries. Currently denies fever and chills, new cough, SOB or CP. She is scheduled for surgery w/ Dr. Larios on 07/05/2023 STOP-BANG Row Name 06/30/23 1244 History of sleep apnea? No Snoring No Tired/Fatigued No Observed Apnea No Pressure: Hypertension No BMI greater than 35 0 Age greater than 50 0 Neck circ greater than 40cm (15.75 ) Unable to Assess Gender male? 0 Score 0 EXERCISE CAPACITY: 4-10 mets and able to walk 2 blocks without difficulty ALLERGIES: Bandage tape, Doxycycline, Methadone, Percocet, Amoxicillin, Darvocet [propoxyphene n-apap], Pregabalin, Vancomycin, and Ziprasidone hcl PREVIOUS ANESTHETIC EXPERIENCES AND INTUBATION HISTORY: Severe post-operative nausea and vomiting FAMILY HISTORY OF ANESTHETIC COMPLICATIONS: No PAST MEDICAL HISTORY: No past medical history on file. PROBLEM LIST: Patient Active Problem List: Chronic pain disorder [G89.4] Bipolar disorder (HCC) [F31.9] Dizziness [R42] Urinary incontinence [R32] Caries [K02.9] Acid reflux [K21.9] Meniere's disease [H81.09] Severe episode of recurrent major depressive disorder, without psychotic features ([facility]) [F33.2] Obstructive sleep apnea syndrome [G47.33] S/P laminectomy with spinal fusion [Z98.1] REVIEW OF SYSTEMS: Eyes/Ears: Eye Glasses, meniere's disease, myringotomy Teeth: caries, broken teeth Pulmonary: Negative Cardiovascular: HTN and denies CP, SOB, [place], syncope or palpitations Gastrointestinal: IBS, GERD, cholecystectomy, appendectomy, right inguinal hernia repair Renal/Genitourinary: incontinence Musculoskeletal: spinal fusion x2 - stimulator in place (not working), right foot sx Endocrine: Negative Hematologic: Negative Neurologic: neuropathy, b/l CTR, seizures last over 10 years ago Psychiatric: bipolar, depression, PTSD, panic attacks Gynecologic: hysterectomy Constitutional: Negative PAST SURGICAL HISTORY: No past surgical history on file. SOCIAL HISTORY: Social History Socioeconomic History Marital status: Single Tobacco Use Smoking status: Every Day Current packs/day: 0.00 Types: Cigarettes, E-cigarette Substance and Sexual Activity Alcohol use: Not Currently Drug use: Not Currently PAIN ASSESSMENT: Severity: 4 Location: lower back LABORATORY DATA: Type AND Screen None CBC (last 3 years, up to 5 values) None Basic Metabolic Panel None PT/PTT/INR (last 3 years, up to 5 values) None Arterial Blood Gases None No result for BNP LFT's (last 3 years, up to 5 values) None TESTS REVIEWED: CXRay: No Chest x-ray found EKG: Last ECG Date: Not Found ECHO: Last Echocardiogram: none found going back to 12/01/2011 No results found for this basename: LVEF Stress test date: Last StressTest: none found going back to 12/01/2011 CURRENT MEDICATION LIST: No current outpatient medications on file. No current facility-administere d medications for this visit. CURRENT MEDICATIONS: Aspirin: No NSAIDS: No Other Antiplatelet Medication: No Anticoagulants: No Steroids: No PATIENT MEDICATION INSTRUCTIONS: On the morning of your surgery please take only the following medications, with a small sip of water: carbamazepine (TEGretol-XR) 400 MG XR tablet gabapentin (NEURONTIN) 600 MG tablet LORazepam (ATIVAN) 1 MG tablet Do not take trazodone the night before surgery Do not take flexeril the night before or the morning of surgery Do not take any Aspirin products 7 days before surgery. Do not take Ibuprofen, Aleve, Advil, Motrin, or any other NSAIDS 3 days before surgery. May take over the counter Acetaminophen (Tylenol) as needed for pain Please hold all Vitamin E, [place] 3, fish oil and herbal supplements for 1 week prior to surgery DAY OF SURGERY NOTES: The patient is to have nothing to eat or drink after midnight. Christine Krishnan APRN-KETTY Time Spent Performing this Telephone History: 15 minutes Normal [facility] [employer] [facility] Progress Noteson 06-21-2023 Director Of Vocational Training Authentication Interface Message Text Teaching Physician Note: I saw and evaluated the patient. I personally obtained the leary and critical portions of the history and physical exam. I reviewed the resident's documentation and discussed the patient with the resident. I agree with the resident's medical decision making as documented in the resident's note. Mariaelena Larios DMD, MD Normal [facility] [employer] [facility] Patient Instructionson 06-18 Director Of Vocational Training Authentication Interface Message Text Oral Surgery General anesthesia instructions You have chosen general anesthesia for your treatment. You have the right to be informed about this so that you can decide whether to have it or not after knowing the risks and benefits. These common procedures are considered quite safe. Nevertheless, all procedures have some risks. They include the following and others: 1. Discomfort, swelling or bruising where the drugs are placed into a vein. 2. Vein irritation, called phlebitis, where the drugs are placed into a vein. Sometimes this may grow to a level of discomfort or disability where it may be difficult to move your arm or hand. Sometimes medication or other treatment may be needed. 3. Nerves travel next to the blood vessels where the drugs are placed into a vein. If the needle hits a nerve or if drugs or fluid leaks out of the vessel around a nerve, I may have numbness or pain in the nerve where it runs along the arm. Usually the numbness or pain goes away, but in some cases, it may be permanent 4. Allergic reactions (previously unknown) to any of the medications used. 5. Nausea and vomiting, although not common, are possible unfortunate side effects. Bed rest, and sometimes medications, may be required for relief. 6. General anesthesia is a serious medical procedures and, whether given in a hospital or office, carry the risk of brain damage, stroke, heart attack or . YOUR OBLIGATIONS: 7. Because anesthetic or sedative medications (including oral premedication) causes drowsiness that lasts for some time, you MUST be accompanied by a responsible adult to drive you to and from surgery, and stay with you for several hours until you are recovered sufficiently to care for yourself. Sometimes the effects of the drugs do not wear off for 24 hours. 8. During recovery time (normally 24 hours), you should not drive, operate complicated machinery or devices or make important decisions such as signing documents, etc. 9. You must have a completely empty stomach. It is vital that you have NOTHING TO EAT OR DRINK for eight (8) hours prior to your treatment. TO DO OTHERWISE MAY BE LIFE-THREATENING. 10. Unless instructed otherwise, it is important that U take any regular medications (high blood pressure, antibiotics, etc.) or any medicines given to me by my surgeon using only a small sip of water. 11. Please do not bring babies on the day of surgery. 12. Do not wear: nail kuwaiti, contact lenses, jewelry. 13. Do wear: loose clothes with short sleeves, long pants, shoes (no high heals). 14. Please call our office to cancel your appointment if you feel sick. Following is the address to the surgery center: [facility] [address] [place] [address]. [place] [address] Normal The [facility] Progress Noteson 06-18-2023 Director Of Vocational Training Authentication Interface Message Text [facility] PATIENT VISIT CHIEF COMPLAINT: Toothache HISTORY OF PRESENT ILLNESS: 47 yo F with sig pmhx of Trigeminal Neuralgia, bipolar disorder, and dizziness presents to clinic with referral for extractions of #2-9, 11, 14, 15, 18, 20, 22-30, alveoloplasty, and removal of mandibular anthony. Patient denies fever, chills, odynophagia, dysphagia, and shortness of breath. Patient also reports significant sensitivity from all teeth. Pt endorses waxing and waning pain originating from the teeth listed on the referral that limits ability to chew, function normally, and perform oral hygiene. PAST MEDICAL HISTORY: 47 yrs old White female No past medical history on file. Patient Active Problem List: Chronic pain disorder [G89.4] Bipolar disorder (HCC) [F31.9] Dizziness [R42] Urinary incontinence [R32] MEDICATIONS: No current outpatient medications on file. No current facility-administere d medications for this visit. ALLERGIES: Patient has no allergy information on record. SURGICAL HX: No past surgical history on file. SOCIAL HX: No Significant findings CLINICAL EXAMINATION Extraoral examination: No significant findings No s/s of infection, redness or tenderness to palpation No facial asymmetry or swelling No appreciable LAD No popping/clicking/cre pitus of TMJ b/l No tenderness to palpation of temporalis or masseter asymptomatic function Range of motion WNL CN V and VII intact Intraoral examination: No s/s of infection or tenderness to palpation Moist, pink mucosa Oropharynx clear No pathological soft lesions appreciated Oral cancer screen negative Occlusion stable Oral hygiene Poor Bilateral mandibular anthony RADIOGRAPHIC INTERPRETATION: [employer] Film taken on 06/18/2023, and Retained in our clinic files #2-9, 11, 14, 15, 18, 20, 22-30 present, and require extractions fr fabrication of prosthodontics. DIAGNOSIS: Caries TREATMENT: 47 yo F with sig pmhx of Trigeminal Neuralgia, bipolar disorder, and dizziness presents to clinic with referral for extractions of #2-9, 11, 14, 15, 18, 20, 22-30, alveoloplasty, and removal of mandibular anthony. She presents with grossly carious decayed teeth, and reports significant sensitivity. Patient is a candidate for extractions under GA at . General Anesthesia Exam: PHYSICAL EXAM: Heart: RRR, S1, S2, No Murmur Lung: clear to auscultation Airway: Class II Faucial pillars, soft palate visible Reviewed procedure and complications associated with extractions ,including treatment options and no treatment. Opportunity given to ask all desired questions. Pertinent and more common complications of extractions discussed with the patient; pain, swelling, bruising, bleeding, infection (that may require further treatment such as hospitalizations), possible permanent numbness of the tongue, gums, teeth, lip, and chin, injury to adjacent structures (tooth, lip, cheek, jaw bone), damage to adjacent teeth, development of permanent TMJ symptoms/dysfunction , jaw fracture at time of surgery or afterwards, decision to leave root tips behind, displacement of tooth (or portion of) into adjacent spaces (such as sinus, floor of mouth, throat) and the development of sinus symptoms. Complications are not limited to the above and may include others that are less common. PLAN: EXT of #2-9, 11, 14, 15, 18, 20, 22-30, alveoloplasty, and removal of mandibular anthony under GA at . Gilbert Peñaloza DDS Normal [facility] [employer] [facility] Urinalysis - AUTOMATEDon Appearance (U) CLEAR [employer] Other Bilirubin Ql (U) Negative [employer] Other Color (U) YELLOW [employer] Other Glucose Ql (U) Negative [employer] Other Hemoglobin Ql (U) Negative [employer] Other Ketones Ql (U) Negative [employer] Other Leukocyte esterase Test strip Ql (U) Negative [employer] Other Nitrite Ql (U) Negative [employer] Other pH (U) 6.0 [pH] [employer] Other Protein Ql (U) Negative [employer] Other Specific gravity (U) [Rel density] 1.025 [employer] Other Urobilinogen (U) [Mass/Vol] 0.2 E.U [employer] Other Urinalysis - AUTOMATED No rt [facility] Other Urine Cultureon 05-08-2023 Bacteria identified Cx Nom (U) [employer] Other Bacteria identified Cx Nom (U) Reason for Exam Urinary frequency Urine >100,000 colonies/ml mixed bacterial skin contaminants 2 Days PERFORMED BY: [place] [address] PATHOLOGIST PLATFORM CONSULTANT GEORGIA MARROQUIN M.D. Normal [facility] Comment on above: Performed By: #### C UU #### [address] CBC AUTO DIFFon 01-28-2023 BASO # 0.1 103/ul Normal 0.0-0.1 [facility] Comment on above: Performed By: #### C BC #### [facility] [address] [place] [address] Dr. Mando Reyes Basophils/100 WBC (Bld) 1.3 % Normal 0.2-2.0 [facility] Comment on above: Performed By: #### C BC #### [facility] [address] [place] [address] Dr. Mando Reyes EO # 0.4 103/ul Normal 0.0-0.7 [facility] Comment on above: Performed By: #### C BC #### [facility] [address] [place] [address] Dr. Mando Reyes Eosinophils/100 WBC (Bld) 3.4 % Normal 0.9-7.0 [facility] Comment on above: Performed By: #### C BC #### [facility] [address] [place] [address] Dr. Mando Reyes Erythrocyte distribution width (RBC) [Ratio] 13.6 % Normal 11.0-15.0 [facility] Comment on above: Performed By: #### C BC #### [facility] [address] [place] [address] Dr. Mando Reyes Hematocrit (Bld) [Volume fraction] 42.4 % Normal 36.0-48.0 [facility] Comment on above: Performed By: #### C BC #### [facility] [address] [place] [address] Dr. Mando Reyes Hemoglobin (Bld) [Mass/Vol] 14.3 g/dL Normal 12.0-16.0 [facility] Comment on above: Performed By: #### C BC #### [facility] [address] [place] [address] Dr. Mando Reyes IG # 0.04 10e3/ul Critically high 0.00-0.03 [facility] Comment on above: Performed By: #### C BC #### [facility] [address] [place] [address] Dr. Mando Reyes IG % 0.4 % Normal 0.0-0.5 [facility] Comment on above: Performed By: #### C BC #### [facility] [address] [place] [address] Dr. Mando Reyes LYMPH # 2.9 103/ul Normal 1.2-3.8 [facility] Comment on above: Performed By: #### C BC #### [facility] [address] [place] [address] Dr. Mando Reyes Lymphocytes/100 WBC (Bld) 28.2 % Normal 20.5-60.0 [facility] Comment on above: Performed By: #### C BC #### [facility] [address] [place] [address] Dr. Mando Reyes MANUAL DIFF REQ NO Normal [facility] Comment on above: Performed By: #### C BC #### [facility] [address] [place] [address] Dr. Mando Reyes MCH (RBC) [Entitic mass] 31.7 pg Normal 26.7-34.0 [facility] Comment on above: Performed By: #### C BC #### [facility] [address] [place] [address] Dr. Mando Reyes MCHC (RBC) [Mass/Vol] 33.7 g/dL Normal 29.9-35.2 [facility] Comment on above: Performed By: #### C BC #### [facility] [address] [place] [address] Dr. Mando Reyes MCV (RBC) [Entitic vol] 94.0 fL Normal 81.0-99.0 [facility] Comment on above: Performed By: #### C BC #### [facility] [address] [place] [address] Dr. Mando Reyes MONO # 0.9 103/ul Critically high 0.3-0.8 [facility] Comment on above: Performed By: #### C BC #### [facility] [address] [place] [address] Dr. Mando Reyes Monocytes/100 WBC (Bld) 8.9 % Normal 1.7-12.0 [facility] Comment on above: Performed By: #### C BC #### [facility] [address] [place] [address] Dr. Mando Reyes NEUT # 6.0 103/ul Normal 1.4-6.5 [facility] Comment on above: Performed By: #### C BC #### [facility] [address] [place] [address] Dr. Mando Reyes Neutrophils/100 WBC (Bld) 57.8 % Normal 43.0-75.0 [facility] Comment on above: Performed By: #### C BC #### [facility] [address] [place] [address] Dr. Mando Reyes Platelet mean volume (Bld) [Entitic vol] 10.0 fL Normal 9.5-13.5 [facility] Comment on above: Performed By: #### C BC #### [facility] [address] [place] [address] Dr. Mando Reyes PLT 277 103/ul Normal 150-450 [facility] Comment on above: Performed By: #### C BC #### [facility] [address] [place] [address] Dr. Mando Reyes RBC 4.51 106/ul Normal 4.20-5.40 [facility] Comment on above: Performed By: #### C BC #### [facility] [address] [place] [address] Dr. Mando Reyes WBC 10.4 103/ul Normal 4.0-11.0 [facility] Comment on above: Performed By: #### C BC #### [facility] [address] [place] [address] Dr. Mando Ryees PROF CHEM 8 (BAS METB)on Anion gap [Moles/Vol] 14.6 mmol/L Normal [facility] Comment on above: Performed By: #### B MP #### [facility] [address] [place] [address] Dr. Mando Reyes Calcium [Mass/Vol] 9.4 mg/dL Normal 8.5-10.1 [facility] Comment on above: Performed By: #### B MP #### [facility] [address] [place] [address] Dr. Mando Reyes Chloride [Moles/Vol] 103 mmol/L Normal 98-107 [facility] Comment on above: Performed By: #### B MP #### [facility] [address] [place] [address] Dr. Mando Reyes CO2 [Moles/Vol] 25.0 mmol/L Normal 21.0-32.0 [facility] Comment on above: Performed By: #### B MP #### [facility] [address] [place] [address] Dr. Mando Reyes Creatinine [Mass/Vol] 0.88 mg/dL Normal 0.55-1.02 [facility] Comment on above: Performed By: #### B MP #### [facility] [address] [address] [address] Mando Reyes EGFR-AF SUDANESE >60 Normal >=60 [facility] Comment on above: Performed By: #### B MP #### [facility] [address] [address] [address] Mando Reyes EGFR-NON AF SUDANESE >60 Normal >=60 [facility] Comment on above: Performed By: #### B MP #### [facility] [address] [address] [address] Mando Reyes Glucose [Mass/Vol] 106 mg/dL Normal 74-106 [facility] Comment on above: Performed By: #### B MP #### [facility] [address] [address] [address] Mando Reyes Potassium [Moles/Vol] 3.6 mmol/L Normal 3.5-5.1 [facility] Comment on above: Performed By: #### B MP #### [facility] [address] [address] [address] Mando Reyes Sodium [Moles/Vol] 139 mmol/L Normal 136-145 [facility] Comment on above: Performed By: #### B MP #### [facility] [address] [address] [address] Mando Reyes Urea nitrogen [Mass/Vol] 8.0 mg/dL Normal 7.0-18.0 [facility] Comment on above: Performed By: #### B MP #### [facility] [address] [address] [address] Mando Reyes Urea nitrogen/Creatinine [Mass ratio] 9.1 mg/mg Normal [facility] Comment on above: Performed By: #### B MP #### [facility] [address] [place] [address] Dr. Mando Reyes Coding Summary.on 05-26-2022 Coding Summary. CD:[id number] Gh0bWw+PGhlYWQ+PE1FV NAkV59dmUUllH1XT0zOL J3RJYLMRQGZMA5GSN9eq VT7TEzrZ6OgsyAi DqleaFUfDK09WBu0CCT7 nOmdMTzgdH9hjTKgO1n5 PuCvJC02kO83ZGwoVHYa HxD9RbItrewtiRJw S6mzLgTnsSShGix+PHRh YmxlIHdpZHRoPScxMDAl RhQtxMjiPZ1oGh1tXUNc LWNvbGxhcHNlOiBj n7lwJCMxYFyxKU1mnFdq T2FfgUU8HMFdu6s1Lj51 dHI+JBCmXEH4iNcqUTyi n609SiMuf5vrQBI9 qNWoKAloFWN7W61lx9U5 AEVfEKQoAEY3jCC3eR3b aWlizughR1GdyEHrJrW2 TFI7zAJzaM3wbJpo zzxyfS4kFem+E59EGW8O MXYHHT8FIzn6G1BwQflg dHI+NJ61LLFiZS38vOVz kJZfw5forUb8GrRw EUPuVEX0cAiuYUbjq8Pe LLYyP07cdXYnf4J8PCQk tVjzvAMpBwYioVC9aB7f KOlojnfcl0ylmrbj Laurz7qmqe99bQ84I73b VTtmTEQrKTR3LLOuKBXd pQarjx3tqF6aKt5+IDxj v4xsy7xwhHd8XxXj QSOidgSrwPznDOC0t0Gs Ob36T4EcsTvaq4GjWml5 ot62eCDem8P9iNG7SVhk OKIuaO8rQEgrRgV3 KHGuFvDbpR93zBYoSRug Rw2ipImrsKenOI9lVUDp pqtePTKeaH9sFMAntETn fIakMH5tERMopsqk s318QeCbRIQ1MOYoyGFh F1UkmM9iEpFvDPHbWPOf L0EzpLGtKRpqB792SKsq JcQ3PDHixeZtW1Ek AMQtgTqyLdG6g5P0Te0N l3NwztakEMA2HIkwMJJ9 TaGvTeMnEeM5J3XgUpa7 EDPkvEpaFV4mY7Qo CZHggijcshmwtVF7TDEx VRQykV64iXKtNJlpCb3l f2K3h033DMTfYEXsrX50 Sv8qyCdhNJFpfEFV sN5evvogy5xecwjoJwOk CXExDOv5OEv7GLIhuYym GbZlZHR4XgN4QLK5bOOq kO9ajVuiqbaqgU0q Oyc+L07kbO9bNXO5SPU8 avmtJWPhqiOlZX06ML05 U5VwNksowNGjyGF+PGRp oxRkbSoeKI4xZrXw w3hzb8FeEAsgU8FdZTKi RHhhXly4BSLfEJU4vNT1 gB8mKBZgDGszt7T5fZM8 Q8ZwlcUuky3ly8th NXMyVOteA04weDNbi1U8 NFDgxUQ7ZIUjzUdhLzDr qV45Qfa+MXFqbAqhj3Se Bydyr3wjw3hhxEc5 IjMwJSIgdmFsaWduPSJ0 k5RdVz14Y46nXIrxGFJm CMXeWJHoRLIpaVankl7y vU8rHj7+PGNvbCB3 rZF2kD1bVKKfLiZ8HKdq B362TlYuwZNxSsrnt6vn x1nelUh9VoCkEKSpodKd tPfzKYU8t1ZfNz98 Y60qXEwoIAJiRULxYCRz FKJfqSjgnm4scD9mKz8+ GW2oj5loff64aG67kXG+ MVFjCWP6dLrxTIsq UPFvoD9vHIqcZmX2GFTk MhTxoC97xLOeKAssWm5b aJfhcBvkES7uQIIpfulz h487DuHyh0cgPMRf fSHiLEkiJML2N73uj0A6 JWZtMXLgIYV5mGX8bX9j bGlnbjogbGVmdDsgdmVy xSyjOPhbUSffF806 IHRvcDsnPlBhdGllbnQg EgEvGOz1P7FpRbu0MPGe xGzgOS8tmZYnNBjfBp9c gSynbIuzOG3tNCQr rqugg403TfLwy0hgAWCf kVWsMBtyHZO8A26vm8X6 GDDlKFXiURW9sOT7uT1u bGlnbjogbGVmdDsg eaXjeKlxGLigVGwcU511 IHRvcDsnPkJpcnRoIERh jYP0JQ73IK34aMLql2M7 pUM6V6HzEMSvkyrf ovxzrNV9DDXzDKKudA68 Zd9suHfeTr7sKQTuFZX1 OKUkuEYbQ4PbgY8vAeLk DUMbFVShW8MeoLSz ZWluB819DIgpWcI6WLAb vsSmV5KsCLHabZppXiU4 p0Y4Ct3NO4E2ZO99MP53 aDNgq5F8hTY7G6Sz VHVkzpqdxkpmuIF5PXCc EATycX29Ru7npFfoRk0r RKRdRKN2KMEwoSFmW8Da pP3vPeUwCSKuDLTd P5IhbOCnSNvbE866RSze HrQ9NQExekJyZ6LoTGWq nNkuDbC4e5B5Jx9TFIk7 WH41NM24pSYhs6U4 uEH6A8StSISdywwurzme bVW2MTJjFMDtmI06Hm7m xVjjMm1dQEAwHOH0MWBt dYCrA9XmfP8uFnLu SUGtPUQuQ7ThcFIzXGvv K051WCspOvE2HTGxqmVv Y5RbYUFnzTzoLiX2e9T6 Bw0DVAKsWQ44QLJ9 sFN6KT57SA19W8OgUukv dGFibGU+PHRhYmxlIHdp ZHRoPScxMDAlJyBzdHls GI0cSd3vZHGbYDQg zDfymIUcNzPgw0qeDLNt XVcwWX6zxXgnM4ZjvQC4 XRCxp9b8No26I46cX2Ki dXA+MNYntJS1bDF3 eE6nTfDwVkV3EFhdS776 YjZzrIEyDaokm4ltj0ow mJz3EmN4YATdyqXfyUir STM4i3FyDw85U43x IHdpZHRoPSIxNSUiIHZh cGvdlu7xhK7mZj6+PGNv bSK6iJG2oO4oHsIcPuP3 JIowT101ItWuxHHp Injjj8imf2nskBd6XuBe RIPptgIcpTpiJQK2p1Ri Ry01Q9WyhJrkb0PoMxp5 oq30uAGzr7Y0mYV2 D1UeTVFjxbyvfCSuaLoy WV5mRKRqpndnCFPjiB7l NRXxA9e2TbDeAgA6FUsb N8GlaqX8ZAKkvGNu IQopMJI9J07qk6O0NWTa LAQkKUJ7eGM8rK4bcXaz bjogbGVmdDsgdmVydGlj ZStrAKgwA119MKQe pVisRDTwcV6dTZFlnBLg lUetTX5yEMUbrpiyBsJJ MJRPBXZvIXLTN51AUFZD HY41CA63eUHyu4W4 pTL8D9GuRHTphcqopohj eKB3GLVvTHFeaS05sNOn OLheQr0jb9A0t345MNVq KGHcvT29Sd6rwBhu WLVkePJJdZ9rzhlzh9kp hvkyAuPzENCmZJg4WWm4 XFVseVryKeRxBYI7VeN7 EKC3jGUvfZ5nqXbf kbvlmK7iIch+MTIvMDgv XKg2GRzpjGB+PHRkIHN0 kLvoNAexXGUmkF4xQGJy P5p0FqSwFrO1SXef K3HxGGXsbhdgBw77cG2g BwMvEfD6MKpcR3ZigsW0 QOSxeZYuHOnqYKQ5X98z c7H8EQHwTBSlGGX9 pVQ6hH7jdNyyjsemeWHd dDsgdmVydGljYWwtYWxp U356CBVlhDshFwY0EUct WVFgKJ53TW38wDEi t9V1eQW5A1GfYJIszizu skktyNS7YVUpLRMmgJ35 nOMpNUxxXz4rr8V0p606 WELwTUSfqG61Ic1w wSqaXUTcbMZKaJ0umttm d3avwapkGzTrVGIwYLx6 JAq1GONglDozYnErYYL4 ZlR5FTZ3xNNtfG4z wYnetkitkH2nWqt+RmVt NAumBI92MB01fSRqk1J0 zZY2N8IeBMSeyclobbuw eBI9FBYaHYBafT46 sULaXFvfKh3by1S1w916 RSCxFJCsuE28Vh1rqTzk LOEpjKTHrI7tfnzan6qr cjogIzAwMDAwMDt0 KWk5QTOxpQdlHlVgGPT3 TjI5QFV8yNJnlW6afOev yvlikI1aYsg+J4N5cMD4 aWVudDwvdGQ+PC90 tt31X1FaVwirOxa7SGXn PRQ0tLL0sL9zCFHyTUxo s2V8jLN1E4RagvJhaf2t m2tpYFRoYInwU62h qBXxn3F7GZSgvUW3ZEGl gWjlZqYejQ89Zag+PGNv iJpdb0YiWaipx7bny7kl wPz6DcMfYBLhkkNc wGlwVQM3w8SwFs03T90d IHdpZHRoPSIzMCUiIHZh iOrrks6yaQ2cDo1+PGNv kZX6iGF1hT7pMnIw CtW4HRxdA630XtCtdDQm Bqxla2wyg6hzaLn6GbLw KNMkrbIfhRetAFB9r8Vf Ea95U3SbhZkva9Gu Ydk4ph55vGIej0B4pNO2 Z8JpKPYcqdnlmADsaLli AP6qIPRbyifqWZAvvB3c WPXmT2m5BxVbRgG5 MZrwP4IobnV0SVMigLYn YUKfwTXYiG7lcvfpt8gl apwkPfMcRIYdCEj1WLe6 LWFsaWduOiBsZWZ0 HhR5ZYH7tDZcvE8vpKpm cggszV2qUap+DPv5f3dr iVEhXQ7zkOK6RO78ED08 aELrn3X8pKT0B2Yq RQOoslctvxepmDN0ZZGb ZJTfjQ50Ua6odWxiWq3c AOLtZTK2OHUdaTRyJ5Er mJ4pLlZbQHLqXWJc X0NuvCXlRYxgH623TJzj XsD2XORgkfYuZ2JlOLOn fXbtJlD1s8X2So5KGP67 SO73DM49jQPso2Q2 uLK1C0SgFZRsjgkecxbv gPQ4THImWBNgnF99Vj3r tSmeMe1yOWIfMAK2MWSa rGToA7WknC7fVeIa LOOhBBCzA5GfwYSyWDxt P115VXwfBiE4VLEdiyWs D4LpYLSipIxmMtT1j0H5 Pm4AXx18BM08WF62 eOZfw5J3aIO3Y7LwIFOj ahplwaiwcAK0DQIfVDXw aC16Pk3leQskBe8cIFUu LCR0TCCwzMPpX2Ki sV9cNcVqJHWwVWTdX4Mq mQTjDSdiY031RXozKiW6 PCQkpqJsG3SsJCWutArs VyW1p5P5Uc6ACPft mdq5Y9NxIegtnUL+PC90 YMUdZE95lTHkwMMyt7an qIg0SiCbLXInIIL8nJov MBnrr0WyERKiS75o bGFw (more content not included)... Normal [facility] Consent for Treatmenton 05-07 Consent for Treatment [id number] #1.00CD:127 Normal [facility] MRI Spine Lumbar w/o Contras ton 05-20-2022 MRI Spine Lumbar w/o Contrast Exam Date/Time: 05/20/2022 11:44 EDT Reason for Exam: M54.9, M48.50XA, [id number] Report IMPRESSION: POSTSURGICAL AND DEGENERATIVE CHANGES OF THE LUMBAR SPINE DETAILED. NO ACUTE OSSEOUS ABNORMALITY. EXAM: MRI of the lumbar spine without contrast History: Low back pain Technique: Multiplanar multisequence MRI of the lumbar spine was obtained without intravenous contrast. Comparison: MRI of the thoracic spine dated 02/24/2020 Findings: The conus medullaris ends normally. The alignment of the lumbar spine is anatomic. The lumbar vertebral body heights are well maintained. Although incompletely visualized, the visualized portion of T11 does not appear significant changed from prior MRI of the lumbar spine and there is no edema within the T11 vertebral body. There is no aggressive bone marrow signal abnormality. Postsurgical changes of lumbosacral spine fusion with posterior decompression at L5-S1. Spinal cord stimulator leads are partially visualized. L1-L2: No significant disc bulge, spinal canal or neuroforaminal stenosis. L2-L3: No significant disc bulge, spinal canal or neuroforaminal stenosis. L3-L4: No significant disc bulge, spinal canal or neuroforaminal stenosis. L4-L5: Small disc bulge. Moderate right and mild left facet arthropathy. No neuroforaminal or spinal canal stenosis. L5-S1: No significant disc bulge. Mild facet arthropathy. Although the neural foramina are partially obscures by susceptibility artifact, suspect moderate right neuroforaminal stenosis. No spinal canal stenosis. An 8mm hyperintense T2 structure of the right kidney is incompletely the Report visualized/evaluated but most likely represents a renal cyst. FINAL REPORT Dictated: 05/20/2022 1:24 pm Leland Kendall DO Signed (Electronic Signature): 05/20/2022 1:24 pm Signed by: Leland Kendall DO Transcribed by: REYMUNDO Technologist: KARRIE Technical Comments None Normal [facility] RAD - MRI Screening Formon 0 05-20-2022 RAD - MRI Screening Form [id number] 2#[id number]:127 Normal [facility] Physician Orderon 05-19-2022 Physician Order [id number] #1.00CD:127 Normal [facility] T4, T3U, FTI [facility]on 05-15 Free Thyroxine Index 1.8 Normal 1.2-4.9 [facility] Comment on above: Performed By: #### T HYLC #### [facility] [address] [place] [address] Dr. Mando Reyes T3 Uptake 27 % Normal 24-39 [facility] Comment on above: Performed By: #### T HYLC #### [facility] [address] [place] [address] Dr. Mando Reyes T4 [Mass/Vol] 6.6 ug/dL Normal 4.5-12.0 [facility] Comment on above: Performed By: #### T HYLC #### [facility] [address] [place] [address] Dr. Mando Reyes CBC AUTO DIFFon 05-14-2022 BASO # 0.1 103/ul Normal 0.0-0.1 [facility] Comment on above: Performed By: #### C BC #### [facility] [address] [place] [address] Dr. Mando Reyes Basophils/100 WBC (Bld) 0.8 % Normal 0.2-2.0 [facility] Comment on above: Performed By: #### C BC #### [facility] [address] [place] [address] Dr. Mando Reyes EO # 0.2 103/ul Normal 0.0-0.7 [facility] Comment on above: Performed By: #### C BC #### [facility] [address] [address] [address] Mando Reyes Eosinophils/100 WBC (Bld) 1.8 % Normal 0.9-7.0 [facility] Comment on above: Performed By: #### C BC #### [facility] [address] [place] [address] Dr. Mando Reyes Erythrocyte distribution width (RBC) [Ratio] 14.0 % Normal 11.0-15.0 [facility] Comment on above: Performed By: #### C BC #### [facility] [address] [place] [address] Dr. Mando Reyes Hematocrit (Bld) [Volume fraction] 42.9 % Normal 36.0-48.0 [facility] Comment on above: Performed By: #### C BC #### [facility] [address] [place] [address] Dr. Mando Reyes Hemoglobin (Bld) [Mass/Vol] 14.5 g/dL Normal 12.0-16.0 [facility] Comment on above: Performed By: #### C BC #### [facility] [address] [place] [address] Dr. Mando Reyes IG # 0.05 10e3/ul Critically high 0.00-0.03 [facility] Comment on above: Performed By: #### C BC #### [facility] [address] [place] [address] Dr. Mando Reyes IG % 0.6 % Critically high 0.0-0.5 [facility] Comment on above: Performed By: #### C BC #### [facility] [address] [place] [address] Dr. Mando Reyes LYMPH # 2.4 103/ul Normal 1.2-3.8 [facility] Comment on above: Performed By: #### C BC #### [facility] [address] [place] [address] Dr. Mando Reyes Lymphocytes/100 WBC (Bld) 26.9 % Normal 20.5-60.0 [facility] Comment on above: Performed By: #### C BC #### [facility] [address] [place] [address] Dr. Mando Reyes MANUAL DIFF REQ NO Normal [facility] Comment on above: Performed By: #### C BC #### [facility] [address] [place] [address] Dr. Mando Reyes MCH (RBC) [Entitic mass] 32.4 pg Normal 26.7-34.0 [facility] Comment on above: Performed By: #### C BC #### [facility] [address] [place] [address] Dr. Mando Reyes MCHC (RBC) [Mass/Vol] 33.8 g/dL Normal 29.9-35.2 [facility] Comment on above: Performed By: #### C BC #### [facility] [address] [place] [address] Dr. Mando Reyes MCV (RBC) [Entitic vol] 95.8 fL Normal 81.0-99.0 [facility] Comment on above: Performed By: #### C BC #### [facility] [address] [place] [address] Dr. Mando Reyes MONO # 0.7 103/ul Normal 0.3-0.8 [facility] Comment on above: Performed By: #### C BC #### [facility] [address] [place] [address] Dr. Mando Reyes Monocytes/100 WBC (Bld) 8.5 % Normal 1.7-12.0 [facility] Comment on above: Performed By: #### C BC #### [facility] [address] [place] [address] Dr. Mando Reyes NEUT # 5.4 103/ul Normal 1.4-6.5 [facility] Comment on above: Performed By: #### C BC #### [facility] [address] [place] [address] Dr. Mando Reyes Neutrophils/100 WBC (Bld) 61.4 % Normal 43.0-75.0 [facility] Comment on above: Performed By: #### C BC #### [facility] [address] [place] [address] Dr. Mando Reyes Platelet mean volume (Bld) [Entitic vol] 9.8 fL Normal 9.5-13.5 [facility] Comment on above: Performed By: #### C BC #### [facility] [address] [place] [address] Dr. Mando Reyes PLT 289 103/ul Normal 150-450 [facility] Comment on above: Performed By: #### C BC #### [facility] [address] [place] [address] Dr. Mando Reyes RBC 4.48 106/ul Normal 4.20-5.40 [facility] Comment on above: Performed By: #### C BC #### [facility] [address] [place] [address] Dr. Mando Reyes WBC 8.7 103/ul Normal 4.0-11.0 [facility] Comment on above: Performed By: #### C BC #### [facility] [address] [place] [address] Dr. Mando Reyes GLYCOHEMOGLOBIN A1Con 2021 ADA RECOMMENDATION SEE BELOW Normal [facility] Comment on above: Result Comment: ADA RECOMMENDED LIMIT 4.0 - 6.0 ADA THERAPEUTIC TARGET < 7.0 ACTION SUGGESTED > 7.0 Performed By: #### A 1C #### [facility] [address] [place] [address] Dr. Mando Reyes Glucose [Mass/Vol] 120 mg/dL Normal [facility] Comment on above: Performed By: #### A 1C #### [facility] [address] [place] [address] Dr. Mando Reyes HbA1c (Bld) [Mass fraction] 5.8 % Normal 4.5-6.2 [facility] Comment on above: Performed By: #### A 1C #### [facility] [address] [place] [address] Dr. Mando Reyes IRONon 05-14-2022 Iron [Mass/Vol] 64.0 ug/dL Normal 50.0-170.0 [facility] Comment on above: Performed By: #### I NELDA #### [facility] [address] [place] [address] Dr. Mando Reyes PROF 14(COMP METB)on 022 Albumin [Mass/Vol] 3.5 g/dL Normal 3.4-5.0 [facility] Comment on above: Performed By: #### T SH, CMP #### [facility] [address] [place] [address] Dr. Mando Reyes Albumin/Globulin [Mass ratio] 0.9 {ratio} Normal [facility] Comment on above: Performed By: #### T SH, CMP #### [facility] [address] [place] [address] Dr. Mando Reyes ALP [Catalytic activity/Vol] 102 U/L Normal 46-116 [facility] Comment on above: Performed By: #### T SH, CMP #### [facility] [address] [place] [address] Dr. Mando Reyes ALT [Catalytic activity/Vol] 30 U/L Normal 14-59 [facility] Comment on above: Performed By: #### T SH, CMP #### [facility] [address] [place] [address] Dr. Mando Reyes Anion gap [Moles/Vol] 13.8 mmol/L Normal [facility] Comment on above: Performed By: #### T SH, CMP #### [facility] [address] [place] [address] Dr. Mando Reyes AST [Catalytic activity/Vol] 17 U/L Normal 15-37 [facility] Comment on above: Performed By: #### T SH, CMP #### [facility] [address] [place] [address] Dr. Mando Reyes Bilirubin [Mass/Vol] 0.2 mg/dL Normal 0.2-1.0 [facility] Comment on above: Performed By: #### T SH, CMP #### [facility] [address] [place] [address] Dr. Mando Reyes Calcium [Mass/Vol] 9.0 mg/dL Normal 8.5-10.1 [facility] Comment on above: Performed By: #### T SH, CMP #### [facility] [address] [address] [address] Mando Reyes Chloride [Moles/Vol] 105 mmol/L Normal 98-107 [facility] Comment on above: Performed By: #### T SH, CMP #### [facility] [address] [address] [address] Mando Reyes CO2 [Moles/Vol] 25.9 mmol/L Normal 21.0-32.0 [facility] Comment on above: Performed By: #### T SH, CMP #### [facility] [address] [address] [address] Mando Reyes Creatinine [Mass/Vol] 0.84 mg/dL Normal 0.55-1.02 [facility] Comment on above: Performed By: #### T SH, CMP #### [facility] [address] [place] [address] Dr. Mando Reyes EGFR-AF SUDANESE >60 Normal >=60 [facility] Comment on above: Performed By: #### T SH, CMP #### [facility] [address] [place] [address] Dr. Mando Reyes EGFR-NON AF SUDANESE >60 Normal >=60 [facility] Comment on above: Performed By: #### T SH, CMP #### [facility] [address] [place] [address] Dr. Mando Reyes Globulin (S) [Mass/Vol] 4.0 g/dL Normal [facility] Comment on above: Performed By: #### T SH, CMP #### [facility] [address] [place] [address] Dr. Mando Reyes Glucose [Mass/Vol] 117 mg/dL Critically high 74-106 [facility] Comment on above: Performed By: #### T SH, CMP #### [facility] [address] [place] [address] Dr. Mando Reyes Potassium [Moles/Vol] 4.7 mmol/L Normal 3.5-5.1 [facility] Comment on above: Performed By: #### T SH, CMP #### [facility] [address] [address] [address] Mando Reyes Protein [Mass/Vol] 7.5 g/dL Normal 6.4-8.2 [facility] Comment on above: Performed By: #### T SH, CMP #### [facility] [address] [address] [address] Mando Reyes Sodium [Moles/Vol] 140 mmol/L Normal 136-145 [facility] Comment on above: Performed By: #### T DEL, CMP #### [facility] [address] [address] [address] Mando Reyes Urea nitrogen [Mass/Vol] 6.0 mg/dL Critically low 7.0-18.0 [facility] Comment on above: Performed By: #### T DEL, CMP #### [facility] [address] [address] [address] Mando Reyes Urea nitrogen/Creatinine [Mass ratio] 7.1 mg/mg Normal [facility] Comment on above: Performed By: #### T DEL, CMP #### [facility] [address] [address] [address] Mando Reyes TSHon 05-14-2022 TSH 0.777 uIU/mL Normal 0.358-3.740 [facility] Comment on above: Performed By: #### T DEL, CMP #### [facility] [address] [place] [address] Dr. Mando Reyes XR CSPINE MIN 4 VIEWSon 04-08 XR CSPINE MIN 4 VIEWS EXAMINATION: XR CSPINE MIN 4 VIEWS HISTORY: Neck pain COMPARISON: 03/29/2020 FINDINGS: BONES: Straightening of normal cervical lordosis. No acute fracture or dislocation. Minimal degenerative changes. DISC SPACES: Normal. No significant disc height narrowing, subluxation, or endplate abnormality. PARASPINOUS: Negative. No paraspinous abnormality is seen. OTHER: Negative. IMPRESSION: Minimal degenerative change Electronically authenticated by: ARIK BERKOWITZ Date: 2022-05-05 11:21 Normal [facility] XR LSPINE MIN 4 VIEWSon 04-08 XR LSPINE MIN 4 VIEWS EXAMINATION: XR LSPINE MIN 4 VIEWS HISTORY: Post-laminectomy syndrome COMPARISON: 03/29/2020 FINDINGS: BONES: 20% anterior wedge compression fracture of the T11 vertebral body. Posterior decompression bilateral transpedicular fusion L5-S1. No mechanical failure. DISC SPACES: Interbody spacer L5-S1 PARASPINOUS: Negative. No paraspinous abnormality is seen. OTHER: Left lateral pelvis neurostimulator with the leads extending off the field of view IMPRESSION: Stable L5-S1 fusion Electronically authenticated by: ARIK BERKOWITZ Date: 2022-05-05 11:23 Normal [facility] CNOVon 12-15-2021 CNOV Office Visit (CDISMN) JANIS GUO ([id number]) 1975 F Date Time Provider Department 12/15/21 11:00 AM [facility] During your visit today, we recorded the following information about you: Alxeus Grant, PhD 12/15/2021 8:42 PM Signed [facility] Vestibular Test Battery Report Name: aJnis Guo [facility]#: [id number] Date of Service: 12/15/2021 Date of : 1975 Age: [age] year old Referred by: Reji Melendez MD [address] [address] And is a patient of Reji Melendez MD, MD Reji Melendez MD [address] [place] [address] Referred for: Evaluation of the cause of disorder of hearing, tinnitus, or balance. Referral documented: In an order in [facility] Pretest Instructions: Patient complied with all pretest instructions. Impressions and Recommendations OVERALL IMPRESSIONS: Normal vestibular evaluation. While the findings indicate low likelihood of active peripheral vestibular system involvement, overall patient case history (vertigo episodes often with associated photo/phonophobia), significant nausea and strong symptom responses suggests possible migraine variant as source for current symptoms. Cannot rule out possible overlay of Meniere's disease in right as previously diagnosed; clinical correlation needed. Patient advised to have recent hearing tests sent for futher review. Janis Guo is a 46 year old female who presents with dizziness described as feeling that the room is spinning, feeling that I am spinning in a [place], feeling as though I could pass out or faint, feeling lightheaded or swimming sensation, feeling unsteady on my feet or like I am swaying while walking. Symptoms began ~ 02/07/2019, with the most recently experienced symptoms occurring today (daily feeling off-balance). She notes that she might have 2-3 good days per week. She has a previous diagnosis of Meniere's disease on the right (dx four years ago), also present with BPPV and vestibular migraine dx (by Dr. Reina). Symptoms are worse since onset. Symptoms last for seconds to hours in duration and occur multiple times per week. Symptoms are typically spontaneous in onset (can become overheated and dizzy). The dizziness is described as a spinning sensation to the left. Associated symptoms include nausea, hot flashes, diaphoresis, panic attacks. She notes that the hearing in the right ear decreases with episodes (often last for hours, and ear will open). Symptoms are alleviated by sitting still. She is currently on a low sodium diet and diuretics (2 different that has not improved her symptoms). She reports nystagmus (horizontal to the left after episodes). She had an episode 3 weeks ago. She reports experiencing headaches with her episodes (<50% of the time), with photo/phonophobia. Needs to be in a dark cold room. 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 She has not fallen in the past year. She is restricting activities due to symptoms (head/body movements). She has participated in vestibular rehabilitation to help address current symptoms; this helped with her BPPV, but not her other episodes. She had a hearing examination < 1 year ago. Today's evaluation revealed the followin. There were no indications peripheral vestibular system pathway involvement noted. Normal investigation of superior and inferior vestibular nerve function via examination of the semicircular canals and otolith organs. Note, strong symptom response and nausea noted during warm caloric irrigation screening. 2. Cervical VEMP testing was performed at 500 and 1000 Hz, a method for detecting endolymphatic hydrops in the saccule; however, there was no observed tuning shift to 1000 Hz observed on this date. 3. There were no clinically significant signs of pathophysiologic nystagmus provoked during gaze stability testing with fixation removed, post-head shake testing, mastoid vibration testing, and positional testing. 4. There were no subjective or objective indications of Benign Paroxysmal Positional Vertigo (BPPV). 5. Abnormal observation of gait and transfers due to the following: slow gait , wide base of support and en bloc movement. Additional functional screening deferred on this date. RECOMMENDATIONS: * Continue medical follow-up with Reji Melendez MD * Patient asked to send in recent hearing test results. Will review today's vestibular test results, patient symptoms, and serial audiograms with [facility]ology team and will make further recommendations regarding additional Otology consultation. Will schedule virtual follow-up visit with patient to further discuss nest steps. * Consider re-evaluation as medically indicated. * Maintain a healthy sleep sche (more content not included)... Normal [facility] Social History Date Type Detail Facility Start: 10-17-2020 End: 09-13-2023 Sex Assigned At Female [facility] Start: 06-30-2023 End: 11-25-2023 Alcohol intake Ex-drinker (finding) [facility] Start: 05-08-2023 History of tobacco use Smoker (findi ng) [facility] Start: 09-16-2022 Education 14 [facility] Start: 12-05-2021 End: 12-15-2021 Exposure to SARS-CoV-2 (event) Not sure [facility] Start: 03-19-2021 Tobacco smoking status Never [facility] Start: 01-23-2020 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) [facility] Start: 02-10-2016 End: 09-16-2022 Tobacco smoking status NHIS Smokes tobacco daily [facility] Start: 02-10-2016 End: 10-17-2020 Cigarettes smoked current (pack per day) - Reported 0.5 [facility] Start: 02-10-2016 End: 09-16-2022 Tobacco use and exposure Smokeless tobacco non-user [facility] Start: 1975 Sex Assigned At Not on file [facility] Start: 1975 Sex Assigned At Female F [facility] History of tobacco use Cigarette Smoker C [facility] Tobacco smoking stat [facility] Tobacco smoking consumption unknown [facility] Vital Signs Date Time Vital Sign Value Performing Clinician Facility 10-24-2023 11:47-0500 Body height 162.[address] [facility] 10-24-2023 11:47-0500 Body mass index (BMI) [Ratio] 30 kg/m2 [facility] 10-24-2023 11:47-0500 Body temperature 99 [degF] [facility] 10-24-2023 11:47-0500 Body weight 79.[address] [facility] 10-24-2023 11:47-0500 Heart rate 94 /min [facility] 10-24-2023 11:47-0500 Respiratory rate 16 /min [facility] 10-24-2023 11:47-0500 SaO2% (BldA) [Mass fraction] 99 % [facility] 07-05-2023 17:30-0400 Body temperature 97 [degF] Mariaelena Larios DMD, MD Work Phone: [facility] 07-05-2023 17:30-0400 Diastolic blood pressure 93 mm[Hg] Mariaelena Larios DMD, MD Work Phone: [facility] 07-05-2023 17:30-0400 Heart rate 85 /min Mariaelena Larios DMD, MD Work Phone: [facility] 07-05-2023 17:30-0400 Respiratory rate 16 /min Mariaelena Larios DMD, MD Work Phone: [facility] 07-05-2023 17:30-0400 SaO2% (BldA) [Mass fraction] 97 % Mariaelena Larios DMD, MD Work Phone: [facility] 07-05-2023 17:30-0400 Systolic blood pressure 124 mm[Hg] Mariaelena Larios DMD, MD Work Phone: [facility] 07-05-2023 12:49-0400 Body height 162.6 cm Mariaelena Larios DMD, MD Work Phone: [employer] 07-05-2023 12:49-0400 Body mass index (BMI) [Ratio] 31.93 kg/m2 Mariaelena Larios DMD, MD Work Phone: [employer] 07-05-2023 12:49-0400 Body weight 84.37 kg Mariaelena Larios DMD, MD Work Phone: [employer] 06-30-2023 12:45-0400 Body height 162.6 cm Christine Velascoduzzi SEN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 Work Phone: [employer] Comment on above: reported by patient 06-30-2023 12:45-0400 Body mass index (BMI) [Ratio] 31.93 kg/m2 Christine Velascoduzzi SEN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 Work Phone: [employer] 06-30-2023 12:45-0400 Body weight 84.37 kg Christine eVlascoduzzi SEN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 Work Phone: [employer] 05-08-2023 10:15-0400 Body height 162.56 cm Justine Saunders Other [employer] Other 05-08-2023 10:15-0400 Body mass index (BMI) [Ratio] 33.95 kg/m2 Justine Saunders Other [employer] Other 05-08-2023 10:15-0400 Body temperature 98.4 [degF] Justine Saunders Other [employer] Other 05-08-2023 10:15-0400 Body weight 89.72 kg Justine Saunders Other [employer] Other 05-08-2023 10:15-0400 Diastolic blood pressure 91 mm[Hg] Justine Saunders Other [employer] Other 05-08-2023 10:15-0400 SaO2% (BldA) [Mass fraction] 98 % Justine Saunders Other [employer] Other 05-08-2023 10:15-0400 Systolic blood pressure 148 mm[Hg] Justine Saunders Other [employer] Other Clinical Notes 12-15-2021 to 07-05-2023 Discharge InstructionsOP Note - Mariaelena Larios DMD, MD - 07/05/2023 3:37 PM EDTOP Note - Mariaelena Larios DMD, MD - 07/05/2023 3:37 PM EDTGhoRenae arzate DDS - 07/05/2023 3:11 PM EDT Note Date & Type Note Facility 07-05-2023 Note Surgical Attestation : I have reviewed the patient's History and Physical Examination. I have personally seen and evaluated the patient, repeating leary portions. There is no significant interval change. Surgery is still indicated. Yes Consent reviewed and signed by patient/family: Yes Operative site verified and marked: site verified but not marked as not anatomically possible Renae Mccarty DDS 07/05/2023 3:11 PM [facility] Hospital Discharg e Sugey Fatima RN - 07/05/2023 4:44 PM EDT Dental extraction Instructions Biting on Gauze to Control Bleeding Bleeding may occur for some time after you extraction. In most cases this bleeding can be easily controlled by placing a piece of clean gauze DIRECTLY over the empty tooth socket. Then make sure that you bite firmly on this gauze for 30 to 60 minutes. Use the gauze we supplied to you in the bag. Wash your hands with soap and water before touching the gauze and placing it in your mouth. Place the used gauze from your mouth in a plastic bag and dispose the bag in a trash container. Make sure to wash your hands again when you are done touching the used gauze and before touching anything else. If a small amount of bleeding continues after 45 minutes then repeat these instructions. Sometimes biting a tea bag may be helpful in controlling minor bleeding. Very light bleeding for 2 days is not uncommon. If heavy bleeding is still persistent during normal clinic hours than call the Clinic where the extraction was done to speak with an oral surgeon. [facility] [phone]. HELPING THE HEALING PROCESS AND STOPPING THE BLEEDING FOR THE NEXT 24 HOURS (1 DAY) AFTER THE EXTRACTION: DO NOT RINSE YOUR MOUTH OR SPIT 2. DO NOT DRINK ANY HOT LIQUIDS SUCH SOUP, COFFEE, TEA, HOT CHOCOLATE AVOID HEAVY LIFTING, BENDING OR OTHER STENUOUS EXERCISES SLEEP WITH 2 PILLOWS OR IN A RECLINER CHAIR. KEEPING HEAD ELEVATED WILL REDUCE SWELLING. SUTURE WILL DISSOLVE IN 7-10 DAYS FOR THE NEXT 72 HOURS (3 DAYS) AFTER THE EXTRACTION: DO NOT SMOKE OR DRINK ALCOHOL DO NOT DRINK OR SUCK FROM A STRAW OR ANYTHING ELSEDO NOT DRINK. Stitches may have been placed to help healing. Your surgeon will advise you if you need to return to have them removed. TOOTH BRUSHING On the day of the extraction it is best to avoid brushing the teeth right next to the extraction site. On the next day you can start brushing ALL your teeth but in a gentle fashion. Remember to not rinse strongly because it may cause you to start bleeding from the extraction site again. SWELLING AND PAIN After the extraction you may feel some pain and experience some swelling. An ice pack of unopened bag of frozen peas of corn applied to the area should keep the swelling down. Put the ice pack on you face for 10 minutes and then leave it off for the next 20 minutes. You can repeat this patter as you feel is necessary for up to 24 hours after the extraction. To avoid injury, make sure that adults or children avoid biting or chewing on their lips of cheeks, which may be numb following an extraction. If your pain or swelling seems to be getting worse or you feel as though something is not right then call your dentist, as directed above. ANTIBIOTICS AND PAIN MEDICATION If antibiotics have been prescribed then you should take them as directed; this includes taking all the antibiotic (or liquid) pills that were prescribed. If you don't finish them completely a serious infection could result. You may have little of no discomfort after the extraction. If you have minor pain then you may want to take acetaminophen (Tylenol) or ibuprofen (Motrin). It is very important that before taking any medications that you read and follow the directions and warnings that come with these products so you know whether they are right for you and you situation. If you have any questions on whether these medications are right for you, first talk to your doctor or pharmacist before taking the medication. Your surgeon may have given you a written prescription for pain relief. It is important that if you decide to take it you read and understand all the precautions, warnings and directions that come with the medication. If you have any questions on whether the medication is right for you, first talk to your doctor or pharmacist before taking the medication. The pain medication prescription that your dentist gave you may contain a narcotic (like codeine). If so, most narcotic pain medications may upset your stomach. If so, then it is best to take them with food. The pain medication prescription that you were given can also make you drowsy or make you act strangely. If so, you should limit or stop activities such as driving a motor vehicle, operate machinery or other activities that require your full attention. EATING AND DRINKING A soft or liquid diet may be best for you after a difficult extraction. For a simpler extraction just make sure you do your chewing with those teeth that are NOT near the extraction site. POSTOPERATIVE INSTRUCTION AFTER SEDATION / GENERAL ANESTHESIA If you had general anesthesia of IV sedation, do not drive or operate machinery for 24 hours. A responsible adult should be with you for the remainder of the day. When starting oral intake, be sure to consume CLEAR LIQUIDS first. Clear liquids consist of water, Sprite, armin tanmay, Jell-O, and non-pulp containing juices such as cranberry and apple juice. Once tolerating clear-liquids, you may advance your diet. Be sure to follow the specific diet instructions from your doctor according to the type of surgery you have had. It is important that you take any narcotic containing pain medications with food. Patients should not participate in any strenuous activity. Standing and sitting up too quickly following surgery can also result in dizziness and exacerbate these problems. It is also important that patients be supervised for an appropriate amount of time following sedation in order to ensure that they remain safe in the post-operative period. Under NO circumstances should a patient drive the day of surgery or participate in any important decisions. NAUSEA & VOMITING Nausea is not uncommon after surgery. Sometimes pain medications may be the cause. In the event of nausea and/or vomiting following surgery, do not take anything by mouth for at least an hour including the prescribed medicine. You should then sip on Coke, tea, or armin tanmay. You should sip slowly over a 15-minute period. When the nausea subsides, you can begin taking solid foods and the prescribed medicine. You may take the anti-nausea medication if prescribed. If the above is not helpful, contact your surgeon. Please if you have any questions or concerns please contact us: [facility] . Ask for the cmo & president disaster or damage control specialist (after hours). pack out operator Clinic Hours: Mon-Fri 8:30 am to 4:30 pm. You were given IV Toradol (which is an NSAID) today for your procedure. You next dose of Motrin is due 11:00p PERIOPERATIVE DISCHARGE/HOME-GOING INSTRUCTIONS ANESTHESIA - GENERAL (ADULT) If a problem arises, you may contact your physician by calling [phone] and asking for the resident disaster or damage control specialist for oral surgery service. Special Care Needs: Activity: Rest at home today and tomorrow, then progress to your regular activities as tolerated. Diet: Clear liquids are best tolerated at first. If you are not nauseated, you can progress your diet to solid foods as tolerated. Possible post-operative precautions: Call you doctor or clinic for: 1. Signs of infection such as fever or chills. 2. Severe pain that in not relieved by Tylenol or your pain medicine prescription. 3. You may have a sore throat - it is usually gone in 1 to 2 days. Post-anesthesia safety: Possible side effects include drowsiness, dizziness, or inability to think clearly. For your safety, do not drive, drink alcoholic beverages, take any unprescribed medication or make any important decisions for 24 hours. A responsible adult should be with you for 24 hours. If no urine by 12:00a or you become very uncomfortable and can t urinate, call [phone] or come to the emergency room. The day after surgery, a nurse will call to check on you. However, if there are any questions or concerns, please call us at the number listed in the home going instructions. documented in this encounter [facility] 07-05-2023 Surgery Surgical operation note [facility] Division of analysis mgr [address] [place] [address] Dr. [place], [place] [address] OPERATIVE NOTE Name: Janis Guo MR#: [id number] ENC#: Data Unavailable Surgical Case #: Data Unavailable Date of Procedure: 07/05/2023 ? 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 ATTENDING SURGEON: Mariaelena Larios ? FIRST SURGEON: Mariaelena Larios DMD, MD ? SECOND SURGEON: Renae Mccarty? ANESTHESIA: General anesthesia via nasal endotracheal tube intubation supplemented with 20 mL of a 50/50 mixture of 1% lidocaine with 1:100,000 epinephrine and 0.5% Marcaine. ? SPECIMENS: none ? ESTIMATED BLOOD LOSS: 25 mL. ? IV FLUIDS: 500 mL. ? FINDINGS: caries. ? DESCRIPTION OF OPERATION: The patient was taken to the operating room on a cart and transferred onto the operating room table under thier own power. The patient was then placed in the supine position. A time-out was conducted to confirm correct patient and procedure to be performed. Anesthesia team, Surgical staff and Nursing team all agreed on correct patient and laterality of the procedure. At this time care of the patient was transferred over to the Anesthesia Service for induction of general anesthetic and intubation. The patient was intubated via nasal endotracheal tube intubation. The tube was secured and care of the patient was transferred back to the Oral Maxillofacial Surgery service for continuation of the procedure. The patient was then prepped and draped in usual sterile fashion and the oral cavity was suctioned clear and A throat pack was placed deep in the oropharynx. Routine extraction of tooth # 2-9,11,14,15 on the maxilla and #18,20,22-31 on the mandible was accomplished by reflecting a full thickness mucoperiosteal flap around the teeth, followed by atraumatic delivery with elevator and forceps. Socket inspected, curettage as needed, followed by saline irrigation. Alveoplasty was performed in the bilateral mandible and maxilla by reflecting a full thickness mucoperiosteal flap, removal of prominent buccal bone areas with rongeur and bone file in order to accomplish smooth contour of the alveolar bone. A lingual flap was elevated on the lingual of the mandible bilaterally. A pineapple bur was used to reduce the lingual torus. The sites were irrigated, and closed with 3-0 chromic gut. At the completion of the procedure, the bite block and throat pack were removed, gauze was placed in the mouth for hemostasis, and the patient was transferred in stable condition to the recovery room for continued monitoring. The oral cavity was suctioned clear and the throat pack was removed. After wound closure was accomplished care of the patient was transferred back to the Anesthesia Service for emergence from the general anesthetic and extubation. The patient was extubated without incidence and transferred back to a cart where he was taken to the Post Anesthesia Care Unit for further monitoring. The patient was stable during the entire procedure. There were no complications. Dr. Larios was present for all critical parts of the procedure. ? ? ? Mariaelena Larios DMD, MD [facility] 07-05-2023 Miscellaneous Notes [facility] Division of analysis mgr [address] [place] [address] [place], [place] [address] OPERATIVE NOTE Name: Janis Guo MR#: [id number] ENC#: Data Unavailable Surgical Case #: Data Unavailable Date of Procedure: 07/05/2023 ? PREOPERATIVE DIAGNOSIS: Caries (Primary Diagnosis) [[id number]] Torus mandibularis [[id number]] ? POSTOPERATIVE DIAGNOSIS: Caries (Primary Diagnosis) [[id number]] Torus mandibularis [[id number]] OPERATION: EXTRACTION ERUPTED TOOTH/EXR [D7140] EXCISION, TORUS MANDIBULARIS [[id number]] ALVEOLOPLASTY W/EXTRACT 1-3 [D7311] ? ATTENDING SURGEON: Mariaelena Larios ? FIRST SURGEON: Mariaelena Larios DMD, MD ? SECOND SURGEON: Renae Mccarty? ANESTHESIA: General anesthesia via nasal endotracheal tube intubation supplemented with 20 mL of a 50/50 mixture of 1% lidocaine with 1:100,000 epinephrine and 0.5% Marcaine. ? SPECIMENS: none ? ESTIMATED BLOOD LOSS: 25 mL. ? IV FLUIDS: 500 mL. ? FINDINGS: caries. ? DESCRIPTION OF OPERATION: The patient was taken to the operating room on a cart and transferred onto the operating room table under [employer] power. The patient was then placed in the supine position. A time-out was conducted to confirm correct patient and procedure to be performed. Anesthesia team, Surgical staff and Nursing team all agreed on correct patient and laterality of the procedure. At this time care of the patient was transferred over to the Anesthesia Service for induction of general anesthetic and intubation. The patient was intubated via nasal endotracheal tube intubation. The tube was secured and care of the patient was transferred back to the Oral Maxillofacial Surgery service for continuation of the procedure. The patient was then prepped and draped in usual sterile fashion and the oral cavity was suctioned clear and A throat pack was placed deep in the oropharynx. Routine extraction of tooth # 2-9,11,14,15 on the maxilla and #18,20,22-31 on the mandible was accomplished by reflecting a full thickness mucoperiosteal flap around the teeth, followed by atraumatic delivery with elevator and forceps. Socket inspected, curettage as needed, followed by saline irrigation. Alveoplasty was performed in the bilateral mandible and maxilla by reflecting a full thickness mucoperiosteal flap, removal of prominent buccal bone areas with rongeur and bone file in order to accomplish smooth contour of the alveolar bone. A lingual flap was elevated on the lingual of the mandible bilaterally. A pineapple bur was used to reduce the lingual torus. The sites were irrigated, and closed with 3-0 chromic gut. At the completion of the procedure, the bite block and throat pack were removed, gauze was placed in the mouth for hemostasis, and the patient was transferred in stable condition to the recovery room for continued monitoring. The oral cavity was suctioned clear and the throat pack was removed. After wound closure was accomplished care of the patient was transferred back to the Anesthesia Service for emergence from the general anesthetic and extubation. The patient was extubated without incidence and transferred back to a cart where he was taken to the Post Anesthesia Care Unit for further monitoring. The patient was stable during the entire procedure. There were no complications. Dr. Larios was present for all critical parts of the procedure. ? ? ? Mariaelena Larios DMD, MD documented in this encounter [facility] 07-05-2023 History and physical note Surgical Attestation: I have reviewed the patient's History and Physical Examination. I have personally seen and evaluated the patient, repeating leary portions. There is no significant interval change. Surgery is still indicated. Yes Consent reviewed and signed by patient/family: Yes Operative site verified and marked: site verified but not marked as not anatomically possible Renae Mccarty DDS 07/05/2023 3:11 PM [facility] Work Phone: 07-05-2023 History and physical note Surgical Attestation: I have reviewed the patient's History and Physical Examination. I have personally seen and evaluated the patient, repeating leary portions. There is no significant interval change. Surgery is still indicated. Yes Consent reviewed and signed by patient/family: Yes Operative site verified and marked: site verified but not marked as not anatomically possible Renae Mccarty DDS 07/05/2023 3:11 PM documented in this encounter [facility] 06-29-2023 Evaluation note Telephone History Janis Guo, [id number] 06/30/2023 47 year old Patient was identified by name and date of . Christine Krishnan APRN-KETTY HISTORY OF PRESENT ILLNESS: Janis Guo is a 47 year old female pt who is seen here today for pre-surgical evaluation for EXTRACTION, TOOTH. She has a h/o Caries. Currently denies fever and chills, new cough, SOB or CP. She is scheduled for surgery w/ Dr. Larios on 07/05/2023 STOP-BANG Row Name 06/30/23 1244 History of sleep apnea? No Snoring No Tired/Fatigued No Observed Apnea No Pressure: Hypertension No BMI greater than 35 0 Age greater than 50 0 Neck circ greater than 40cm (15.75 ) Unable to Assess Gender male? 0 Score 0 EXERCISE CAPACITY: 4-10 mets and able to walk 2 blocks without difficulty ALLERGIES: Bandage tape, Doxycycline, Methadone, Percocet, Amoxicillin, Darvocet [propoxyphene n-apap], Pregabalin, Vancomycin, and Ziprasidone hcl PREVIOUS ANESTHETIC EXPERIENCES AND INTUBATION HISTORY: Severe post-operative nausea and vomiting FAMILY HISTORY OF ANESTHETIC COMPLICATIONS: No PAST MEDICAL HISTORY: No past medical history on file. 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] Obstructive sleep apnea syndrome [G47.33] S/P laminectomy with spinal fusion [Z98.1] REVIEW OF SYSTEMS: Eyes/Ears: Eye Glasses, meniere's disease, myringotomy Teeth: caries, broken teeth Pulmonary: Negative Cardiovascular: HTN and denies CP, SOB, [place], syncope or palpitations Gastrointestinal: IBS, GERD, cholecystectomy, appendectomy, right inguinal hernia repair Renal/Genitourinary: incontinence Musculoskeletal: spinal fusion x2 - stimulator in place (not working), right foot sx Endocrine: Negative Hematologic: Negative Neurologic: neuropathy, b/l CTR, seizures last over 10 years ago Psychiatric: bipolar, depression, PTSD, panic attacks Gynecologic: hysterectomy Constitutional: Negative PAST SURGICAL HISTORY: No past surgical history on file. SOCIAL HISTORY: Social History Socioeconomic History Marital status: Single Tobacco Use Smoking status: Every Day Current packs/day: 0.00 Types: Cigarettes, E-cigarette Substance and Sexual Activity Alcohol use: Not Currently Drug use: Not Currently PAIN ASSESSMENT: Severity: 4 Location: lower back LABORATORY DATA: Type & Screen None CBC (last 3 years, up to 5 values) None Basic Metabolic Panel None PT/PTT/INR (last 3 years, up to 5 values) None Arterial Blood Gases None No result for BNP LFT's (last 3 years, up to 5 values) None TESTS REVIEWED: CXRay: No Chest x-ray found EKG: Last ECG Date: Not Found ECHO: Last Echocardiogram: none found going back to 12/01/2011 No results found for this basename: LVEF Stress test date: Last StressTest: none found going back to 12/01/2011 CURRENT MEDICATION LIST: No current outpatient medications on file. No current facility-administered medications for this visit. CURRENT MEDICATIONS: Aspirin: No NSAIDS: No Other Antiplatelet Medication: No Anticoagulants: No Steroids: No PATIENT MEDICATION INSTRUCTIONS: On the morning of your surgery please take only the following medications, with a small sip of water: carbamazepine (TEGretol-XR) 400 MG XR tablet gabapentin (NEURONTIN) 600 MG tablet LORazepam (ATIVAN) 1 MG tablet Do not take trazodone the night before surgery Do not take flexeril the night before or the morning of surgery Do not take any Aspirin products 7 days before surgery. Do not take Ibuprofen, Aleve, Advil, Motrin, or any other NSAIDS 3 days before surgery. May take over the counter Acetaminophen (Tylenol) as needed for pain Please hold all Vitamin E, [place] 3, fish oil and herbal supplements for 1 week prior to surgery DAY OF SURGERY NOTES: The patient is to have nothing to eat or drink after midnight. JARED Mohan Time Spent Performing this Telephone History: 15 minutes [facility] 06-29-2023 Miscellaneous Notes Telephone History Janis Guo, [id number] 06/30/2023 47 year old Patient was identified by name and date of . JARED Mohan HISTORY OF PRESENT ILLNESS: Janis Guo is a 47 year old female pt who is seen here today for pre-surgical evaluation for EXTRACTION, TOOTH. She has a h/o Caries. Currently denies fever and chills, new cough, SOB or CP. She is scheduled for surgery w/ Dr. Larios on 07/05/2023 STOP-BANG Row Name 06/30/23 1244 History of sleep apnea? No Snoring No Tired/Fatigued No Observed Apnea No Pressure: Hypertension No BMI greater than 35 0 Age greater than 50 0 Neck circ greater than 40cm (15.75 ) Unable to Assess Gender male? 0 Score 0 EXERCISE CAPACITY: 4-10 mets and able to walk 2 blocks without difficulty ALLERGIES: Bandage tape, Doxycycline, Methadone, Percocet, Amoxicillin, Darvocet [propoxyphene n-apap], Pregabalin, Vancomycin, and Ziprasidone hcl PREVIOUS ANESTHETIC EXPERIENCES AND INTUBATION HISTORY: Severe post-operative nausea and vomiting FAMILY HISTORY OF ANESTHETIC COMPLICATIONS: No PAST MEDICAL HISTORY: No past medical history on file. 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] Obstructive sleep apnea syndrome [G47.33] S/P laminectomy with spinal fusion [Z98.1] REVIEW OF SYSTEMS: Eyes/Ears: Eye Glasses, meniere's disease, myringotomy Teeth: caries, broken teeth Pulmonary: Negative Cardiovascular: HTN and denies CP, SOB, [place], syncope or palpitations Gastrointestinal: IBS, GERD, cholecystectomy, appendectomy, right inguinal hernia repair Renal/Genitourinary: incontinence Musculoskeletal: spinal fusion x2 - stimulator in place (not working), right foot sx Endocrine: Negative Hematologic: Negative Neurologic: neuropathy, b/l CTR, seizures last over 10 years ago Psychiatric: bipolar, depression, PTSD, panic attacks Gynecologic: hysterectomy Constitutional: Negative PAST SURGICAL HISTORY: No past surgical history on file. SOCIAL HISTORY: Social History Socioeconomic History Marital status: Single Tobacco Use Smoking status: Every Day Current packs/day: 0.00 Types: Cigarettes, E-cigarette Substance and Sexual Activity Alcohol use: Not Currently Drug use: Not Currently PAIN ASSESSMENT: Severity: 4 Location: lower back LABORATORY DATA: Type & Screen None CBC (last 3 years, up to 5 values) None Basic Metabolic Panel None PT/PTT/INR (last 3 years, up to 5 values) None Arterial Blood Gases None No result for BNP LFT's (last 3 years, up to 5 values) None TESTS REVIEWED: CXRay: No Chest x-ray found EKG: Last ECG Date: Not Found ECHO: Last Echocardiogram: none found going back to 12/01/2011 No results found for this basename: LVEF Stress test date: Last StressTest: none found going back to 12/01/2011 CURRENT MEDICATION LIST: No current outpatient medications on file. No current facility-administered medications for this visit. CURRENT MEDICATIONS: Aspirin: No NSAIDS: No Other Antiplatelet Medication: No Anticoagulants: No Steroids: No PATIENT MEDICATION INSTRUCTIONS: On the morning of your surgery please take only the following medications, with a small sip of water: carbamazepine (TEGretol-XR) 400 MG XR tablet gabapentin (NEURONTIN) 600 MG tablet LORazepam (ATIVAN) 1 MG tablet Do not take trazodone the night before surgery Do not take flexeril the night before or the morning of surgery Do not take any Aspirin products 7 days before surgery. Do not take Ibuprofen, Aleve, Advil, Motrin, or any other NSAIDS 3 days before surgery. May take over the counter Acetaminophen (Tylenol) as needed for pain Please hold all Vitamin E, [place] 3, fish oil and herbal supplements for 1 week prior to surgery DAY OF SURGERY NOTES: The patient is to have nothing to eat or drink after midnight. JARED Mohan Time Spent Performing this Telephone History: 15 minutes documented in this encounter [facility] 06-21-2023 History of Presen t illness Narrative Teaching Physician Note: I saw and evaluated the patient. I personally obtained the leary and critical portions of the history and physical exam. I reviewed the resident's documentation and discussed the patient with the resident. I agree with the resident's medical decision making as documented in the resident's note. Mariaelena Larios DMD, MD Images from the original note were not included. OMFS PATIENT VISIT CHIEF COMPLAINT: Toothache HISTORY OF PRESENT ILLNESS: 47 yo F with sig pmhx of Trigeminal Neuralgia, bipolar disorder, and dizziness presents to clinic with referral for extractions of #2-9, 11, 14, 15, 18, 20, 22-30, alveoloplasty, and removal of mandibular anthony. Patient denies fever, chills, odynophagia, dysphagia, and shortness of breath. Patient also reports significant sensitivity from all teeth. Pt endorses waxing and waning pain originating from the teeth listed on the referral that limits ability to chew, function normally, and perform oral hygiene. PAST MEDICAL HISTORY: 47 yrs old White female No past medical history on file. Patient Active Problem List: Chronic pain disorder [G89.4] Bipolar disorder (HCC) [F31.9] Dizziness [R42] Urinary incontinence [R32] MEDICATIONS: No current outpatient medications on file. No current facility-administered medications for this visit. ALLERGIES: Patient has no allergy information on record. SURGICAL HX: No past surgical history on file. SOCIAL HX: No Significant findings CLINICAL EXAMINATION Extraoral examination: No significant findings No s/s of infection, redness or tenderness to palpation No facial asymmetry or swelling No appreciable LAD No popping/clicking/crepitus of TMJ b/l No tenderness to palpation of temporalis or masseter asymptomatic function Range of motion WNL CN V and VII intact Intraoral examination: No s/s of infection or tenderness to palpation Moist, pink mucosa Oropharynx clear No pathological soft lesions appreciated Oral cancer screen negative Occlusion stable Oral hygiene Poor Bilateral mandibular anthony RADIOGRAPHIC INTERPRETATION: [employer] Film taken on 06/18/2023, and Retained in our clinic files #2-9, 11, 14, 15, 18, 20, 22-30 present, and require extractions fr fabrication of prosthodontics. DIAGNOSIS: Caries TREATMENT: 47 yo F with sig pmhx of Trigeminal Neuralgia, bipolar disorder, and dizziness presents to clinic with referral for extractions of #2-9, 11, 14, 15, 18, 20, 22-30, alveoloplasty, and removal of mandibular anthony. She presents with grossly carious decayed teeth, and reports significant sensitivity. Patient is a candidate for extractions under GA at . General Anesthesia Exam: PHYSICAL EXAM: Heart: RRR, S1, S2, No Murmur Lung: clear to auscultation Airway: Class II Faucial pillars, soft palate visible Reviewed procedure and complications associated with extractions ,including treatment options and no treatment. Opportunity given to ask all desired questions. Pertinent and more common complications of extractions discussed with the patient; pain, swelling, bruising, bleeding, infection (that may require further treatment such as hospitalizations), possible permanent numbness of the tongue, gums, teeth, lip, and chin, injury to adjacent structures (tooth, lip, cheek, jaw bone), damage to adjacent teeth, development of permanent TMJ symptoms/dysfunction, jaw fracture at time of surgery or afterwards, decision to leave root tips behind, displacement of tooth (or portion of) into adjacent spaces (such as sinus, floor of mouth, throat) and the development of sinus symptoms. Complications are not limited to the above and may include others that are less common. PLAN: EXT of #2-9, 11, 14, 15, 18, 20, 22-30, alveoloplasty, and removal of mandibular anthony under GA at . Gilbert Peñaloza DDS documented in this encounter [facility] 06-18-2023 Instructions Gilbert Peñaloza DDS - 06/18/2023 8:33 AM EDT Oral Surgery General anesthesia instructions You have chosen general anesthesia for your treatment. You have the right to be informed about this so that you can decide whether to have it or not after knowing the risks and benefits. These common procedures are considered quite safe. Nevertheless, all procedures have some risks. They include the following and others: 1. Discomfort, swelling or bruising where the drugs are placed into a vein. 2. Vein irritation, called phlebitis, where the drugs are placed into a vein. Sometimes this may grow to a level of discomfort or disability where it may be difficult to move your arm or hand. Sometimes medication or other treatment may be needed. 3. Nerves travel next to the blood vessels where the drugs are placed into a vein. If the needle hits a nerve or if drugs or fluid leaks out of the vessel around a nerve, I may have numbness or pain in the nerve where it runs along the arm. Usually the numbness or pain goes away, but in some cases, it may be permanent 4. Allergic reactions (previously unknown) to any of the medications used. 5. Nausea and vomiting, although not common, are possible unfortunate side effects. Bed rest, and sometimes medications, may be required for relief. 6. General anesthesia is a serious medical procedures and, whether given in a hospital or office, carry the risk of brain damage, stroke, heart attack or . YOUR OBLIGATIONS: 7. Because anesthetic or sedative medications (including oral premedication) causes drowsiness that lasts for some time, you MUST be accompanied by a responsible adult to drive you to and from surgery, and stay with you for several hours until you are recovered sufficiently to care for yourself. Sometimes the effects of the drugs do not wear off for 24 hours. 8. During recovery time (normally 24 hours), you should not drive, operate complicated machinery or devices or make important decisions such as signing documents, etc. 9. You must have a completely empty stomach. It is vital that you have NOTHING TO EAT OR DRINK for eight (8) hours prior to your treatment. TO DO OTHERWISE MAY BE LIFE-THREATENING. 10. Unless instructed otherwise, it is important that U take any regular medications (high blood pressure, antibiotics, etc.) or any medicines given to me by my surgeon using only a small sip of water. 11. Please do not bring babies on the day of surgery. 12. Do not wear: nail kuwaiti, contact lenses, jewelry. 13. Do wear: loose clothes with short sleeves, long pants, shoes (no high heals). 14. Please call our office to cancel your appointment if you feel sick. Following is the address to the surgery center: [facility] [address] [place] [address]. [place] [address] documented in this encounter [facility] 06-18-2023 Instructions Gilbert Peñaloza DDS - 06/18/2023 8:33 AM EDT Oral Surgery General anesthesia instructions You have chosen general anesthesia for your treatment. You have the right to be informed about this so that you can decide whether to have it or not after knowing the risks and benefits. These common procedures are considered quite safe. Nevertheless, all procedures have some risks. They include the following and others: 1. Discomfort, swelling or bruising where the drugs are placed into a vein. 2. Vein irritation, called phlebitis, where the drugs are placed into a vein. Sometimes this may grow to a level of discomfort or disability where it may be difficult to move your arm or hand. Sometimes medication or other treatment may be needed. 3. Nerves travel next to the blood vessels where the drugs are placed into a vein. If the needle hits a nerve or if drugs or fluid leaks out of the vessel around a nerve, I may have numbness or pain in the nerve where it runs along the arm. Usually the numbness or pain goes away, but in some cases, it may be permanent 4. Allergic reactions (previously unknown) to any of the medications used. 5. Nausea and vomiting, although not common, are possible unfortunate side effects. Bed rest, and sometimes medications, may be required for relief. 6. General anesthesia is a serious medical procedures and, whether given in a hospital or office, carry the risk of brain damage, stroke, heart attack or . YOUR OBLIGATIONS: 7. Because anesthetic or sedative medications (including oral premedication) causes drowsiness that lasts for some time, you MUST be accompanied by a responsible adult to drive you to and from surgery, and stay with you for several hours until you are recovered sufficiently to care for yourself. Sometimes the effects of the drugs do not wear off for 24 hours. 8. During recovery time (normally 24 hours), you should not drive, operate complicated machinery or devices or make important decisions such as signing documents, etc. 9. You must have a completely empty stomach. It is vital that you have NOTHING TO EAT OR DRINK for eight (8) hours prior to your treatment. TO DO OTHERWISE MAY BE LIFE-THREATENING. 10. Unless instructed otherwise, it is important that U take any regular medications (high blood pressure, antibiotics, etc.) or any medicines given to me by my surgeon using only a small sip of water. 11. Please do not bring babies on the day of surgery. 12. Do not wear: nail kuwaiti, contact lenses, jewelry. 13. Do wear: loose clothes with short sleeves, long pants, shoes (no high heals). 14. Please call our office to cancel your appointment if you feel sick. Following is the address to the surgery center: [facility] [address] [place] [address]. [place], [place] [id number] documented in this encounter [facility] 06-18-2023 History of Presen t illness Narrative Images from the original note were not included. OMFS PATIENT VISIT CHIEF COMPLAINT: Toothache HISTORY OF PRESENT ILLNESS: 47 yo F with sig pmhx of Trigeminal Neuralgia, bipolar disorder, and dizziness presents to clinic with referral for extractions of #2-9, 11, 14, 15, 18, 20, 22-30, alveoloplasty, and removal of mandibular anthony. Patient denies fever, chills, odynophagia, dysphagia, and shortness of breath. Patient also reports significant sensitivity from all teeth. Pt endorses waxing and waning pain originating from the teeth listed on the referral that limits ability to chew, function normally, and perform oral hygiene. PAST MEDICAL HISTORY: 47 yrs old White female No past medical history on file. Patient Active Problem List: Chronic pain disorder [G89.4] Bipolar disorder (HCC) [F31.9] Dizziness [R42] Urinary incontinence [R32] MEDICATIONS: No current outpatient medications on file. No current facility-administered medications for this visit. ALLERGIES: Patient has no allergy information on record. SURGICAL HX: No past surgical history on file. SOCIAL HX: No Significant findings CLINICAL EXAMINATION Extraoral examination: No significant findings No s/s of infection, redness or tenderness to palpation No facial asymmetry or swelling No appreciable LAD No popping/clicking/crepitus of TMJ b/l No tenderness to palpation of temporalis or masseter asymptomatic function Range of motion WNL CN V and VII intact Intraoral examination: No s/s of infection or tenderness to palpation Moist, pink mucosa Oropharynx clear No pathological soft lesions appreciated Oral cancer screen negative Occlusion stable Oral hygiene Poor Bilateral mandibular anthony RADIOGRAPHIC INTERPRETATION: [employer] Film taken on 06/18/2023, and Retained in our clinic files #2-9, 11, 14, 15, 18, 20, 22-30 present, and require extractions fr fabrication of prosthodontics. DIAGNOSIS: Caries TREATMENT: 47 yo F with sig pmhx of Trigeminal Neuralgia, bipolar disorder, and dizziness presents to clinic with referral for extractions of #2-9, 11, 14, 15, 18, 20, 22-30, alveoloplasty, and removal of mandibular anthony. She presents with grossly carious decayed teeth, and reports significant sensitivity. Patient is a candidate for extractions under GA at . General Anesthesia Exam: PHYSICAL EXAM: Heart: RRR, S1, S2, No Murmur Lung: clear to auscultation Airway: Class II Faucial pillars, soft palate visible Reviewed procedure and complications associated with extractions ,including treatment options and no treatment. Opportunity given to ask all desired questions. Pertinent and more common complications of extractions discussed with the patient; pain, swelling, bruising, bleeding, infection (that may require further treatment such as hospitalizations), possible permanent numbness of the tongue, gums, teeth, lip, and chin, injury to adjacent structures (tooth, lip, cheek, jaw bone), damage to adjacent teeth, development of permanent TMJ symptoms/dysfunction, jaw fracture at time of surgery or afterwards, decision to leave root tips behind, displacement of tooth (or portion of) into adjacent spaces (such as sinus, floor of mouth, throat) and the development of sinus symptoms. Complications are not limited to the above and may include others that are less common. PLAN: EXT of #2-9, 11, 14, 15, 18, 20, 22-30, alveoloplasty, and removal of mandibular anthony under GA at . Gilbert Peñaloza DDS documented in this encounter [facility] 05-08-2023 Evaluation note Encounter Date Diagnosis Assessment Notes May, Urinary frequency (ICD-10 - R35.0) May, Strain of lumbar region, initial encounter (ICD-10 - S39.012A) Low back pain home care material was printed Drink plenty fluids, get plenty of rest. Continue home medications as prescribed. Take the ibuprofen as prescribed for back pain. Take the cyclobenzaprine as prescribed as needed for back pain and stiffness. Be aware the cyclobenzaprine may make you very tired. You may return to work tomorrow with limited lifting and bending for a week. Follow-up with your family physician if no improvement in 2 to 3 days May, Back pain (ICD-10 - M54.9) Sciatica material was printed May, Left sided sciatica (ICD-10 - M54.32) [employer] Other 04-11-2022 NoteHNO ID: [id number] Author: Alexus Grant, PhD Service: ? Author Type: Pbx Technician Type: Progress Notes Filed: 12/15/2021 8:42 PM Note Text: [facility] [place] [facility] Vestibular Test Battery Report Name: Janis Guo [facility]#: [id number] Date of Service: 12/15/2021 Date of : 1975 Age: [age] year old Referred by: Reji Melendez MD [address] [address] And is a patient of Reji Melendez MD, MD Reji Melendez MD [facility] [place] [address] Referred for: Evaluation of the cause of disorder of hearing, tinnitus, or balance. Referral documented: In an order in [facility] Pretest Instructions: Patient complied with all pretest instructions. Impressions and Recommendations OVERALL IMPRESSIONS: Normal vestibular evaluation. While the findings indicate low likelihood of active peripheral vestibular system involvement, overall patient case history (vertigo episodes often with associated photo/phonophobia), significant nausea and strong symptom responses suggests possible migraine variant as source for current symptoms. Cannot rule out possible overlay of Meniere's disease in right as previously diagnosed; clinical correlation needed. Patient advised to have recent hearing tests sent for futher review. Janis Guo is a 46 year old female who presents with dizziness described as feeling that the room is spinning, feeling that I am spinning in a [place], feeling as though I could pass out or faint, feeling lightheaded or swimming sensation, feeling unsteady on my feet or like I am swaying while walking. Symptoms began ~ 02/07/2019, with the most recently experienced symptoms occurring today (daily feeling off-balance). She notes that she might have 2-3 good days per week. She has a previous diagnosis of Meniere's disease on the right (dx four years ago), also present with BPPV and vestibular migraine dx (by Dr. Reina). Symptoms are worse since onset. Symptoms last for seconds to hours in duration and occur multiple times per week. Symptoms are typically spontaneous in onset (can become overheated and dizzy). The dizziness is described as a spinning sensation to the left. Associated symptoms include nausea, hot flashes, diaphoresis, panic attacks. She notes that the hearing in the right ear decreases with episodes (often last for hours, and ear will open). Symptoms are alleviated by sitting still. She is currently on a low sodium diet and diuretics (2 different that has not improved her symptoms). She reports nystagmus (horizontal to the left after episodes). She had an episode 3 weeks ago. She reports experiencing headaches with her episodes (<50% of the time), with photo/phonophobia. Needs to be in a dark cold room. 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 She has not fallen in the past year. She is restricting activities due to symptoms (head/body movements). She has participated in vestibular rehabilitation to help address current symptoms; this helped with her BPPV, but not her other episodes. She had a hearing examination < 1 year ago. Today's evaluation revealed the followin. There were no indications peripheral vestibular system pathway involvement noted. Normal investigation of superior and inferior vestibular nerve function via examination of the semicircular canals and otolith organs. Note, strong symptom response and nausea noted during warm caloric irrigation screening. 2. Cervical VEMP testing was performed at 500 and 1000 Hz, a method for detecting endolymphatic hydrops in the saccule; however, there was no observed tuning shift to 1000 Hz observed on this date. 3. There were no clinically significant signs of pathophysiologic nystagmus provoked during gaze stability testing with fixation removed, post-head shake testing, mastoid vibration testing, and positional testing. 4. There were no subjective or objective indications of Benign Paroxysmal Positional Vertigo (BPPV). 5. Abnormal observation of gait and transfers due to the following: slow gait , wide base of support and en bloc movement. Additional functional screening deferred on this date. RECOMMENDATIONS: * Continue medical follow-up with Reji Melendez MD * Patient asked to send in recent hearing test results. Will review today's vestibular test results, patient symptoms, and serial audiograms with [facility] team and will make further recommendations regarding additional Otology consultation. Will schedule virtual follow-up visit with patient to further discuss nest steps. * Consider re-evaluation as medically indicated. * Maintain a healthy sleep schedule in addition to diet, hydration, and exercise to help patient's body function overall. The results and recommendations were explained to Janis Guo and she expressed unde (more content not included)...[facility] 12-15-2021 Instructions* Patient Instructions* Alexus Grant, PhD - 12/15/2021 12:44 PM EDT Images from the original note were not included. [facility] [place] [facility] For the body to feel balanced, the brain requires input from inner ear organs, eyes, muscles, and joints. Symptoms of dizziness, imbalance, vertigo, or lightheadedness may have many different causes.These symptoms may be due to problems associated with your inner ear, vision, brain, heart, medications, or other health conditions. Today you completed a comprehensive evaluation of your ear vestibular balance system. Our vestibular system involves 3 semicircular canals (our head rotation sensors), 2 otolith organs (our gravity sensors), and our vestibular nerve. Test Summary: The purpose of today's evaluation was to assess for any peripheral, or inner ear involvement for the symptoms you have been experiencing. Based on today s evaluation, your vestibular system appears to be normal. I would like to review your hearing test results and symptoms with my Otology team to help determine if your current symptoms/episodes are due to your history of Meniere's disease, vestibular migraine and/or both. Recommendations: * I will communication my results and next steps with your referring provider, Reji Melendez MD, * I will schedule a time for us to further discuss next steps after review of your hearing test results. * Please send your hearing test results to [phone] (fax). * Maintain a healthy sleep schedule in addition to diet, hydration, and exercise to help your body function overall. Falling Risk: Dizziness, vertigo and/or imbalance are symptoms that raise concern for falling risk. Below are some tips to reduce falls: Install night lights; always turn on a light before entering a room. Keep walkways well lit. Remove home hazards such as floor throw rugs, loose electrical cords, stools or other small pieces of furniture that can trip people, and all floor clutter. Change positions or turn slowly and have something nearby to hold onto. Keep medical conditions under control by taking prescribed medications and/or following a prescribed diet. Learn to practice exercises that can improve balance, such as Chaim Chi or yoga. Wear low-heeled shoes, walking shoes, or other flexible shoes with good traction Always use handrails when walking up and down stairs. Discuss with a health care provider any concerns you have about falls, or if you experience a fall. [facility] History of Present illness Narrative* Alexus Grant, PhD - 12/15/2021 11:00 AM EDT [facility] [place] [facility] Vestibular Test Battery Report Name: Janis Guo [facility]#: [id number] Date of Service: 12/15/2021 Date of : 1975 Age: [age] year old Referred by: Reji Melendez MD [facility] [id number] And is a patient of Reji Melendez MD, MD Reji Melendez MD [address] [place], [place] [id number] Referred for: Evaluation of the cause of disorder of hearing, tinnitus, or balance. Referral documented: In an order in [facility] Pretest Instructions: Patient complied with all pretest instructions. Impressions and Recommendations OVERALL IMPRESSIONS: Normal vestibular evaluation. While the findings indicate low likelihood of active peripheral vestibular system involvement, overall patient case history (vertigo episodes often with associated photo/phonophobia), significant nausea and strong symptom responses suggests possible migraine variant as source for current symptoms. Cannot rule out possible overlay of Meniere's disease in right as previously diagnosed; clinical correlation needed. Patient advised to have recent hearing tests sent for futher review. Janis Guo is a 46 year old female who presents with dizziness described as feeling that the room is spinning, feeling that I am spinning in a kw[place], feeling as though I could pass out or faint,feeling lightheaded or swimming sensation, feeling unsteady on my feet or like I am swaying while walking. Symptoms began ~ 02/07/2019, with the most recently experienced symptoms occurring today (daily feeling off-balance). She notes that she might have 2-3 good days per week. She has a previous diagnosis of Meniere's disease on the right (dx four years ago), also present with BPPV and vestibular migraine dx (by Dr. Reina). Symptoms are worse since onset. Symptoms last for seconds to hours in duration and occur multiple times per week. Symptoms are typically spontaneous in onset (can become overheated and dizzy). The dizziness is described as a spinning sensation to the left. Associated symptoms include nausea, hot flashes, diaphoresis, panic attacks. She notes that the hearing in the right ear decreases with episodes (often last for hours, and ear will open). Symptoms are alleviated by sitting still. She is currently on a low sodium diet and diuretics (2 different that has not improved her symptoms). She reports nystagmus (horizontal to the left after episodes). She had an episode3 weeks ago. She reports experiencing headaches with her episodes (<50% of the time), with photo/ phonophobia. Needs to be in a dark cold room. 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 She has not fallen in the past year. She is restricting activities due to symptoms(head/body movements). She has participated in vestibular rehabilitation to help address current symptoms; this helped with her BPPV, but not her other episodes. She had a hearing examination < 1 year ago. Today's evaluation revealed the followin. There were no indications peripheral vestibular system pathway involvement noted. Normal investigation of superior and inferior vestibular nerve function via examination of the semicircular canalsand otolith organs. Note, strong symptom response and nausea noted during warm caloric irrigation screening. 2. Cervical VEMP testing was performed at 500 and 1000 Hz, a method for detecting endolymphatic hydrops in the saccule; however, there was no observed tuning shift to 1000 Hz observed on this date. 3. There were no clinically significant signs of pathophysiologic nystagmus provoked during gaze stability testing with fixation removed, post-head shake testing, mastoid vibration testing, and positional testing. 4. There were no subjective or objective indications of Benign Paroxysmal Positional Vertigo (BPPV). 5. Abnormal observation of gait and transfers due to the following: slow gait , wide base of support and en bloc movement. Additional functional screening deferred on this date. RECOMMENDATIONS: * Continue medical follow-up with Reji Melendez MD * Patient asked to send in recent hearing test results. Will review today's vestibular test results, patient symptoms, and serial audiograms with [facility] Otology team and will make further recommendations regarding additional Otology consultation. Will schedule virtual follow-up visit with patient to further discuss nest steps. * Consider re-evaluation as medically indicated. * Maintain a healthy sleep schedule in addition to diet, hydration, and exercise to help patient's body function overall. The results and recommendations were explained to Janis Guo and she expressed understanding ofthe information. History Present Illness SUMMARY OF PAST MEDICAL HISTORY: Possible Meniere's disease on the right side Saw Dr. Reina in 2019 - recommended neck therapy. Possible migraine overlay Vestibular testing from 2019 revealed 28% left unilateral weakness, possible left horizontal canal BPPV (canalithasis type). CHIEF COMPLAINT: Patient-Entered Questionnaire Scores Vestibular Case History 12/08/2021 I experience the following: Feeling that the room is spinning, Feeling that I am spinning in a kwethluk, Feeling as though I could pass out or faint, Feeling lightheaded or swimming sensation, Feeling unsteady on my feet or like I am swaying while walking My symptoms began: 02/07/2019 My last episode was: 12/06/2021 Symptoms have changed since they began: Yes Symptoms are: Worse Symptoms started after cold or flu: No Specific event caused dizziness: No Free from dizziness or problems with balance in between attacks: No Trouble walking or standing in the dark or dimly lit room: Yes Trouble walking on soft or uneven surfaces (grass or carpet): Yes Dizziness symptoms last: Seconds, Minutes, Hours, Days Dizziness symptoms occur: Multiple times per week Dizziness symptoms mainly happen when sitting or standing up too quickly: No Dizziness symptoms mainly happen when changing positions: Yes Change in hearing in: Right ear Fullness/pressure feeling in: Both ears Ringing or buzzing sound in: Both ears Pain in: Right ear Drainage from: N/A Sensitivity to sound: Yes Your voice sounds loud to you: No Hearing checked in last year: Yes Vision-related symptoms with dizziness: Blurriness, Double vision, Feeling like my vision is bouncing with head movements Dizziness can occur from visual stimuli: Yes Wear glasses or contacts: Yes Vision checked in last year Yes Symptoms with dizziness: Seeing spots, jagged lines or flashes, Head pain, Head throbbing, Nausea, Vision changes, Jaw pain, Slurred speech or difficulty producing words, Confusion or memory loss Diagnosed with migraines or headaches: Yes Experience migraines or headaches: Yes Recent head or neck injury: No Added stress to life: Yes Dizziness worse with stress or when anxious: Yes Restrict activities due to dizziness symptoms: Yes Fallen in the past year: Yes Fear of falling: Yes Symptoms of dizziness improved by: Being still, Closing eyes, Lying down PHQ-9 01/20/2020 Score 13 PROMIS Global Health Scale 12/08/2021 01/20/2020 Physical Health Percentile 4 10 Mental Health Percentile - 19* Percentiles provide an indication of how a patient's score ranks in relation to the [place] general population. > 31st percentile is within normal limits or better * < 31st percentile is at least SD worse than population, which may be clinically relevant < 16th percentile is at least 1 SD worse than population and warrants attention Based on review of the patient's past medical history and chief complaint, the following clinical questions were explored during today's appointment: active Right ear Meniere's disease verses vestibular migraine? Plan for today's objective vestibular testing based on these clinical questions: Videonystagmography (VNG), Video Head Impulse Test (VHIT), Rotational Chair and Vestibular Evoked Myogenic Potentials (VEMPs) Medical History ACTIVE PROBLEM LIST Back Pain Acid Reflux Depression Smoker Bipolar Disorder (Hcc) Chronic Pain Syndrome S/P Laminectomy With Spinal Fusion Medications: Current Outpatient Medications on File Prior to Visit Medication Sig lansoprazole (PREVACID) 30 mg capsule busPIRone (BUSPAR) 10 mg tablet Take by mouth. venlafaxine ER (EFFEXOR XR) 150 mg 24 hr capsule venlafaxine (EFFEXOR) 75 mg tablet Amitriptyline HCl 150 mg tablet meloxicam (MOBIC) 15 mg tablet OXcarbazepine (TRILEPTAL) 150 mg tablet Take by mouth. hydrOXYzine HCl (ATARAX) 50 mg tablet gabapentin (NEURONTIN) 300 mg capsule gabapentin (NEURONTIN) 600 mg tablet Take by mouth. bisoprolol (ZEBETA) 10 mg tablet Take by mouth. hydrOXYzine HCl (ATARAX) 25 mg tablet prazosin (MINIPRESS) 2 mg cap busPIRone (BUSPAR) 15 mg tablet linaclotide 290 mcg cap Take by mouth. pantoprazole (PROTONIX) 40 mg grps Take 40 mg by mouth twice daily before meals (0600/1600). docusate sodium (COLACE) 100 mg capsule Take 100 mg by mouth twice daily. ALPRAZolam (XANAX) 1 mg tablet Take 1 mg by mouth four times daily. PV W-O STEVE/FERROUS FUMARATE/FA (M-VIT ORAL) Take by mouth. Cetirizine 10 mg cap Take by mouth. eszopiclone (LUNESTA) 3 mg tab Take by mouth daily at bedtime. No current facility-administered medications on file prior to visit. Current medications with potential vestibular/balance side effects include: Neurotin, Xanax, Effexor Family/Social History FAMILY HISTORY Problem Relation Age of Onset Hypertension Mother Stroke Mother Arthritis Mother Diabetes Mother Family history of otologic or neurologic disorders: No Social History Tobacco Use Smoking status: Current Every Day Smoker Packs/day: 0.50 Years: 25.00 Pack years: 12.50 Types: Cigarettes Smokeless tobacco: Never Used Substance Use Topics Alcohol use: No Drug use: No Physical/Vestibular Evaluation GENERAL: Cognitive Status: Alert, Oriented and Cooperative EARS: Right ear: Ear canal clear, Eardrum visible, Landmarks noted; patient noted possible drainage from right ear. Left ear: Ear canal clear, Eardrum visible and Landmarks noted Tympanometry: CPT code: 26248 Description of procedure: This test is an objective evaluation of middle ear function. Right ear: Normal middle ear pressure and mobility. Canal Volume (ml): 0.9 Peak Pressure (daPa): -45 Peak Amplitude: 0.4 Tympanogram Width (daPa): 135 Left ear: Normal middle ear pressure and mobility. Canal Volume (ml): 1.0 Peak Pressure (daPa): 10 Peak Amplitude: 0.4 Tympanogram Width (daPa): 80 EYES/OCULOMOTOR: Extra-ocular range of motion (CN III, IV, ): Normal. Conjugate eye movements: Yes Smooth pursuit (horizontal and vertical): Normal Saccades (horizontal, vertical, oblique): Normal Cover uncover test: Normal [id number] test: Normal Convergence test: deferred NECK: Cervical rotation right restrictions: none. Reported pain: None Cervical rotation left restrictions: none. Reported pain: None Cervical extension restrictions: none. Reported pain: None Cervical flexion restrictions: none. Reported pain: None GAIT AND BALANCE: Observation of gait and transfer: Abnormal: slow gait, wide base of support and en bloc movement. Additional testing deferred. VESTIBULAR: Head impulses of semi-circular canals: Normal Ocular counter roll: Normal Videonystagmography Examination (VNG): CPT codes: 00371, 13355, 76622, 08618. Description of Procedure: objective assessment of peripheral (e.g., low frequency horizontal canal VOR function), status of compensation, Benign Paroxysmal Positional Vertigo (BPPV), and central vestibulo-ocular pathway (oculomotor examination). Procedure time: 30-45 minutes. Note: The fast component (direction) of all nystagmus is reported from the patient's perspective. Calibration procedure: unremarkable Saccade Performance test (pseudo-random presentation of a laser target; 5 - 50 deg horizontal steps): Latency values: Normal Accuracy values: Normal Peak Velocity values: Normal Reported symptoms: none Pursuit Tracking test (sinusoidal presentation of a laser target; .1-.6 Hz, 10- 60 deg/sec): Gain values: Normal. Evidence of saccadic pursuit: No. Reported symptoms: none Spontaneous & Gaze-Evoked Nystagmus test: Nystagmus center gaze with fixation: none. Temporal profile: N/A. Saccadic intrusions/oscillations:none. Symptoms: none. Nystagmus center gaze without fixation: none. Temporal profile: N/A. Saccadic intrusions/oscillations: none. Symptoms: none. Nystagmus right gaze with fixation: none. Temporal profile: N/A. Saccadic intrusions/oscillations: none. Symptoms: none. Nystagmus right gaze without fixation: none. Temporal profile: N/A. Saccadic intrusions/oscillations: none. Symptoms: none. Nystagmus left gaze with fixation: none. Temporal profile: N/A. Saccadic intrusions/oscillations: none. Symptoms: none. Nystagmus left gaze without fixation: none. Temporal profile: N/A. Saccadic intrusions/oscillations: none. Symptoms: none. Nystagmus up gaze with fixation: none. Temporal profile: N/A. Saccadic intrusions/oscillations: none. Symptoms: none. Nystagmus up gaze without fixation: none. Temporal profile: N/A. Saccadic intrusions/oscillations: none. Symptoms: none. Nystagmus down gaze with fixation: none. Temporal profile: N/A. Saccadic intrusions/oscillations: none. Symptoms: none. Nystagmus down gaze without fixation: none. Temporal profile: N/A. Saccadic intrusions/oscillations: none. Symptoms: none. Note: remainder of testing completed without fixation unless otherwise specified. Head shaking test: Nystagmus post-horizontal head shake: none. Temporal profile: N/A. Symptoms: dizziness. Nystagmus post-vertical head shake: none. Temporal profile: N/A. Symptoms: none. Skull vibration-induced nystagmus test (sitting, mastoid vibration right, mastoid vibration left): Mastoid vibration right: none. Temporal profile: N/A. Symptoms: none. Mastoid vibration left: none. Temporal profile: N/A. Symptoms: none. Neck torsion test: Nystagmus neck torsion right: none. Temporal profile: N/A. Symptoms: none. Nystagmus neck torsion left: none. Temporal profile: N/A. Symptoms: none. Vertical Semi-circular Canal BPPV Nystagmus tests: Nystagmus Mcclelland-Hallpike right ear down position: none. Temporal profile: N/A. Symptoms: none. Nystagmus Shanell-Hallpike right ear return to sit position: none. Temporal profile: N/A. Symptoms: none. Nystagmus Shanell-Hallpike left ear down position: none. Temporal profile: N/A. Symptoms: none. Nystagmus Mcclelland-Hallpike left ear return to sit position: none. Temporal profile: N/A. Symptoms: none. Horizontal Semi-circular Canal BPPV and Positional Nystagmus tests: Nystagmus head center supine: none. Temporal profile: N/A. Symptoms: none. Nystagmus head (roll) right: none. Temporal profile: N/A. Symptoms: none. Nystagmus head (roll) left: none. Temporal profile: N/A. Symptoms: none. Monothermal water calorics screening (30 second irrigations, supine position): Unilateral Weakness (UW%): Normal. 5% UW in the left ear. Fixation Suppression Index (FI%): Normal. (Note: normal FI% < 0.6) Nystagmus pre-caloric position (10 sec screening): none. Right ear: Warm (44 deg C): 41 d/s SPV avg. Left ear: Warm (44 deg C): 37 d/s SPV avg. Vestibular Evoked Myogenic Potentials (VEMP): CPT code: 37355 Description of Procedure: short-latency myogenic potentials produced with sound or vibration originating from otolith organs (saccule and utricle). Cervical (cVEMPs) are recorded from the sternocleidomastoid muscles (patient in a semi- reclined position, head lifted and rotated away from ear stimulated): Ocular (oVEMPs) recorded from the inferior oblique extra-muscles (patient seated with 30 deg upward gaze). Screening for SSCD (superior semi-circular canal dehiscence) conducted if medically warranted. Procedure time: 30 minutes. Note: Integrity of auditory stimulus, electrode placement and muscle contraction were verified. Otoscopy performed prior to testing confirming unoccluded canals. Amplitude and latency values represent best responses if more than 1 waveform obtained. Cervical (cVEMP): Normal. Results are not consistent with saccule, inferior vestibular nerve, and/or cVEMP pathway involvement in both ears. Cervical VEMP testing was performed at 500 and 1000 Hz, a method for detecting endolymphatic hydrops in the saccule; however, there was no observed tuning shift to 1000 Hz observed on this date. Right ear: testing obtained with bone conduction, amplitude: 55.82uV; P1 latency: 13.67 ms; N1 latency: 22.67 ms; SSCD screen: not tested Left ear: testing obtained with bone conduction, amplitude: 32.84uV; P1 latency: 15.67 ms; N1 latency: 23.33 ms; SSCD screen: not tested Interaural amplitude difference cVEMP (abnormal > 30%): 26% (RE-LE/RE+LE)100 - Normal Waveforms were scaled according to the average EMG values obtained throughout testing: No History of noise exposure and documented noise-induced SNHL notch >/= 35 dB HL at 3, 4, or 6kHz:No Ocular (oVEMP): Normal. Results are not consistent with utricule, superior vestibular nerve, and/oroVEMP pathway involvement in both ears. Right ear: testing obtained with bone conduction, amplitude: 7.200uV; N1 latency: 10.67 ms; P1 latency: 16.00 ms; SSCD screen: not tested Left ear: testing obtained with bone conduction, amplitude: 5.838uV; N1 latency: 10.33 ms; P1 latency: 13.67 ms; SSCD screen: not tested Interaural amplitude difference oVEMP (abnormal > 40%): 10% (RE-LE/RE+LE)100 - Normal Video Head Impulse Test (VHIT): CPT code: 80996 Description of Procedure: assessment of the angular vestibulo-ocular reflex (VOR) of all six semicircular canals. During vHIT, patients wear infrared goggles and their head is quickly moved in the plane of each semicircular canal. Measurements of VOR gain and corrective saccades are used to determine semicircular canal paresis. Procedure time: 20 minutes. Calibration procedure: unremarkable. Camera placement over the left eye. Lateral Canal VHIT: Normal. Results are not consistent with lateral semicircular canal/VOR pathway involvement in the left ear. Right lateral: gain: 1.12, no saccades Left lateral: gain: 1.27, no saccades (Note: abnormal gain < 0.80) Vertical Canal VHIT: No observed corrective saccades with vertical canal impulses; note, due to eyelid artifact, VOR gain results could not be interpreted. Rotational Chair: CPT code 51701 Description of Procedure: objective assessment of peripheral vestibular system function, in particular bilateral peripheral function (lateral canal VOR function in low-mid frequencies). Procedure time: 20 minutes. Calibration procedure: unremarkable. Sinusoidal Harmonic Acceleration (SHA) testing (at 0.01, 0.08 and 0.32 Hz): Gain values: Normal Phase values: Normal Symmetry values: Normal Suppression of vestibulo-ocular reflex (SHA at 0.04 Hz) with visual input: Normal. It was my pleasure to evaluate Janis Guo. If you have any questions regarding this information, please contact me at [phone]. Alexus Grant, PhD CCC-A Vestibular Pbx Technician Director, Vestibular and Balance Disorders Program [place] [facility] copy to: Reji Melendez MD [address] [facility] [id number] documented in this encounterC[facility] HospitalEvaluation + Plan note No data available for this section [facility] Diagnosis Dizziness- Primary Dizziness and giddiness Meniere's disease of right ear Meniere's disease, unspecified Migraine variant Variants of migraine, not elsewhere classified, without mention of intractable migraine without mention of status migrainosus [facility]* Diagnosis Thoracic back pain, unspecified back pain laterality, unspecified chronicity- Primary [facility] Diagnosis Caries- Primary Unspecified dental caries [facility] Diagnosis Caries- Primary Unspecified dental caries [facility]* Diagnosis Caries- Primary Unspecified dental caries Caries Unspecified dental caries Torus mandibularis Exostosis of jaw [facility]* Diagnosis Post-operative state- Primary Other postprocedural status [facility] noteNo assessment information availableSt[facility] Work Phone: History general Narrative - Reported* Type Description Date Medical History depression Medical History anxiety Medical History PTSD Medical History manic Medical History chronic back pain Medical History menieres disease Surgical History back surgery x2 Surgical History C- section x2 Surgical History hysterectomy Surgical History appendectomy Surgical History carpel tunnel release Surgical History gallbladder Surgical History spinal fusion x 2 Surgical History carpal tunnel tarsal tunnel Surgical History cholecystectomy Surgical History x2 Surgical History inguinal hernia repair Surgical History hernia repair Surgical History total abdominal hysterectomy Surgical History laparscopy Surgical History tarsel tunnel Surgical History colonoscopy Surgical History spine stimulator Hospitalization History pancreatitis [facility] Discharge instructions No data available for this section [facility] filedocumented in this encounter [facility] filed[facility] in [facility] No data available for this section [facility] Summary Purpose Family History No Family History Records Found Relationship Condition Age at Onset Recorded Date/T mirta Not Specified Hiatal hernia Unknown Hypertension Unknown Not Specified Hypertension Unknown History of stroke Unknown Diabetes mellitus Unknown Advance Directives No Advanced Directives Records Found Advance Directive Response Recorded Date/ Time Advance Directives No June 16, 2017 3:14pm Reason for Referral Specialty Diagnoses / Procedures Referred By Contac t Referred To Contact Oral Surgery Diagnoses Caries Procedures EXTRACTION ERUPTED TOOTH/EXR DEEP ANESTHESIA, 1ST 15 MINS GENERAL ANESTH EA ADDL 15 MIN Mariaelena Larios DMD, MD [address] [place] [address] Referral ID Status Reason Start Date Expiration Date V isits Requested Visits Authorized [id number] Pending Review 06/19/2023 06/19/2024 1 1 Scheduling Instructions If your in-clinic procedure was not scheduled for you today, please call (option 2) during normal business hours (8 am to 5 pm) on to schedule. Please allow 4 weeks time between the day of your consult to scheduling your procedure to allow the system time to process the order and receive insurance authorization. If your insurance denies all or part of your procedure, you will be contacted with [id number] costs or next steps. All self-pay payments will need to be collected in full prior to having the procedure. Please arrive 30 minutes prior to your procedure. If you are having a local anesthesia procedure: No diet restrictions the day before or day of the procedure. You may take your normal medications as instructed. No covid testing needed. You may drive yourself home afterward. If you are prescribed anxiety reducing medications for the procedure: You also MUST have a emt driver/escort >18yrs old present to take you home after. If your provider has proposed an IV sedation procedure: Please refer to the instructions given to you at your consult appointment. You will receive a call from a nurse roughly 1 week prior to your procedure to go over any/all instructions. Question Answer What is the procedure for? Dental Please specify: Extractions, Misc. Procedures Please specify: Routine Extraction Routine Extraction--please list tooth number(s): #2-9, 11, 14, 15, 18, 20, 22-30 Please Specify: Alveo W/Ext, Removal Mandibular Torus - Per Quad Alveo w/Ext Tooth-please list tooth number: UR, UL, LR, LL Removal Mandibular Torus - Per Quad--please list tooth number(s): LR, LL Is Sedation Needed? IV Sedation Desired Length (Minutes): 60 Which area is this procedure for? OR Specialty Diagnoses / Procedures Referred By Contact Referred To Contact Nurse Practitioner / Spine Surgery Diagnoses Thoracic back pain, unspecified back pain laterality, unspecified chronicity Reji Melendez MD [address] [facility] [place] [address] [place] [address] Peace Nelson, PUMP SERVICER SUPERVISOR [address] [place] [address] Referral ID Status Reason Start Date Expiration Date Visits Requested Visits Authorized [id number] Pending Review Specialty Services Required/Pat ient's Best Interest 06/11/2022 06/11/2023 1 1 Chief Complaint and Reason for Visit Chief Complaint Sore throat, Poss ea r infection Additional Source Comments Source Comments (unrecognize d section and content) In the event this informatio n is protected by the Federal Confidentiality of Alcohol and Drug Abuse Patient Records regulations: The Federal rules restrict any use of the information to criminally investigate or prosecute any alcohol or drug abuse patient.[facility] Reason for Visit (unrecogniz ed section and content) Reason Comments Dizziness Hearing Loss Headaches Specialty Diagnoses / Procedures Referred By Alexa french Referred To Contact Oral Surgery Diagnoses Dental caries Ralph Victoria DDS [address] [place] [address] [facility] ORAL SURGERY [address] [place] [address] Referral ID Status Reason Start Date Expiration Date V isits Requested Visits Authorized [id number] Authorized 12/22/2022 12/23/2023 3 3 Specialty Diagnoses / Procedures Referred By Alexa french Referred To Contact Ambulatory Surgery Diagnoses Caries Caries [K02.9] Procedures UNLISTED PROCEDURE, DENTOALVEOLAR STRUCTURES ANESTHESIA, INTRAORAL PROC, W/BX; NOS EXTRACTION, TOOTH Mariaelena Larios DMD, MD [address] [place], [place] [id number] [facility] [address] [place] [id number] Phone: [phone] Referral ID Status Reason Start Date Expiration Date Visits Re quested Visits Authorized [id number] 3 3 Care Teams (unrecognized sec tion and content) Computer Trainer Relationship Specialty Start Date End Date Reji Melendez MD [address] [id number] PCP - General Family Practice 10/12/19 Reji Melendez MD [address] [place] [id number] (Work) Family Practice 10/12/19 Computer Trainer Relationship Specialty Start Date End Date Reji Melendez MD [address] [place] [address] PCP - General Family Medicine 06/10/22 Computer Trainer Relationship Specialty Start Date End Date Mariaelena Larios DMD, MD [address] [place] [address] Physician Oral & Maxillofacial Surgery 07/10/23 Team Status: Active Member Role Status Dates Reji Melendez MD Primary Care Provider Active Team Status: Inactive Member Role Status Dates Reji Melendez MD Primary Care Provider Active Start: October 24, 2023 End: October 24, 2023 Nanci Spangler APRN Attending Provider Active S tart: October 24, 2023 End: October 24, 2023 Computer Trainer Relationship Specialty Start Date End Date Reji Melendez MD [address] [place], [place] [phone] PCP - General Family Medicine 07/06/22 Computer Trainer Relationship Specialty Start Date End Date Reji Melendez MD [address] [place] [address] PCP - General Family Medicine 07/06/22 INFORMATION SOURCE (unrecogn ized section and content) DATE CREATED AUTHOR 12/20/2021 [facility] DATE CREATED AUTHOR AUTHOR'S ORGANIZ ATION 06/02/2022 [facility] DATE CREATED AUTHOR AUTHOR'S ORGANIZ ATION 02/12/2023 [facility] DATE CREATED AUTHOR AUTHOR'S ORGANIZ ATION 05/12/2023 [facility] DATE CREATED AUTHOR AUTHOR'S ORGANIZ ATION 07/19/2023 [facility] DATE CREATED AUTHOR AUTHOR'S ORGANIZ ATION 01/18/2024 [facility] d[facility] Special[facility] DATE CREATED AUTHOR AUTHOR'S ORGANIZ ATION 03/28/2024 [facility] Scheduled Active and Recently Administ ered Medications (unrecognized section and content) Medication Order 07/03/2023 07/04/2023 07/05/2023 amisulpride (BARHEMSYS) injection 10 mg (COMPLETED) 10 mg, Intravenous Push, ONCE, 1 dose, On Wed07/05/23 at 1800 1722 (Given - Provid er: Sugey Gentile RN) chlorhexidine (PERIDEX) 0.12 % oral solution (COMPLETED) 15 mL, Swish & Spit, ONCE, 1 dose, On Wed07/05/23 at 1330, Pre-op 1310 (Given - Provid er: Liv Whitt RN) Continuous Medication Order 07/03/2023 07/04/2023 07/05/2023 lactated ringers iv infusion Intravenous, at 75 mL/hr, CONTINUOUS, Starting on Wed07/05/23 at 1330, Until Discontinued 1330 (Due) PRN Medication Order 07/03/2023 07/04/2023 07/05/2023 bupivacaine (MARCAINE) 10 mL, lidocaine-epinephrine (XYLOCAINE) 1 %-1:[id number] 10 mL, dose administered = 19 mL given 20 mL sc injection (CANCELED) PRN, Starting on Wed07/05/23 at 1539, Until Wed07/05/23 at 1653 1539 (Given - Provid er: Mariaelena Larios DMD, MD) Goals (unrecognized section and content) Goals may be documented in a n alternate section FOR RECORDS PERTAINING TO PATIENTS WHO ARE OR HAVE BEEN ENROLLED IN A CHEMICAL DEPENDENCY/SUBSTANCEABUSE PROGRAM, SOME INFORMATION MAY BE OMITTED. This clinical summary was aggregated from multiple sources. Caution should be exercised in using it in the provision of clinical care. This summary normalizes information from multiple sources, and as a consequence, information in this document may materially change the coding, format and clinical context of patient data. In addition, data may be omitted in some cases. CLINICAL DECISIONS SHOULD BE BASED ON THE PRIMARY CLINICAL RECORDS. [email or web address] [facility]. provides no warranty or guarantee of the accuracy or completeness of information in this document.
--- NOTE | 2024-03-31 08:04 | XR_ITS ---
The [address] [address] Patient Name: NEVAEH SHETH MRN: [id number] date: 1975 Sex: F Assigned Patient Location: LAB Current Patient Location: LAB Accession/Order Number: [id number] Exam Date: 03/31/2024 08:13 Report Date: 04/03/2024 09:06 At the request of: REJI ASHLEY Procedure: XR lumbar spine min 4V EXAMINATION: XR lumbar spine min 4V HISTORY: Hip Arthritis, Peripheral Neuropathy COMPARISON: No relevant comparison available. FINDINGS: BONES: T11 marked compression fracture. T12-L1 degenerative endplate changes. Posterior mechanical fusion L5-S1 via bilateral pedicle screws and rods; no appreciable hardware fracture loosening. DISC SPACES: Intervertebral disc spacer L5-S1. PARASPINOUS: Neurostimulator pack within left flank with electrodes extending into the low thoracic spine. OTHER: Negative. XR/XR lumbar spine min 4V IMPRESSION: 1. Stable T11 marked compression fracture. 2. Stable surgical changes L5-S1. 3. No appreciable acute abnormality or significant degenerative disc disease. Electronically authenticated by: MARLY REYES Date: 04/03/2024 09:06
--- NOTE | 2024-03-31 08:04 | XR_ITS ---
The [address] [address] Patient Name: NEVAEH SHETH MRN: [id number] date: 1975 Sex: F Assigned Patient Location: LAB Current Patient Location: Accession/Order Number: [id number] Exam Date: 03/31/2024 08:13 Report Date: 04/03/2024 08:50 At the request of: REJI ASHLEY Procedure: XR hip BI w PEL 1V EXAMINATION: XR hip BI w PEL 1V HISTORY: Hip Arthritis, Neuropathy COMPARISON: No relevant comparison available. FINDINGS: RIGHT FINDINGS: BONES: No significant arthropathy or acute abnormality. SOFT TISSUES: No visible soft tissue swelling. OTHER: Negative. LEFT FINDINGS: BONES: No significant arthropathy or acute abnormality. SOFT TISSUES: No visible soft tissue swelling. OTHER: Mechanical fusion of L5-S1 via bilateral pedicle screws and rods. Neurostimulator pack projecting over left side of pelvis. XR/XR hip BI w PEL 1V IMPRESSION: RIGHT CONCLUSION: 1. No acute bone abnormality or significant degenerative changes of the right hip. 2. Mechanical fusion of lower lumbar spine. LEFT CONCLUSION: 1. No acute bone abnormality or significant degenerative changes of the left hip. Electronically authenticated by: MARLY REYES Date: 04/03/2024 08:50
[2024-03-31 08:46] LABS: Basophils Absolute Auto 0.1 10^3/uL (0.0-0.1); Basophils Percent Auto 0.6 % (0.2-2.0); Eosinophils Absolute Auto 0.1 10^3/uL (0.0-0.7); Eosinophils Percent Auto 0.7 % (0.9-7.0); Hematocrit 43.4 % (36.0-48.0); Hemoglobin 14.5 g/dL (12.0-16.0); Immature Granulocytes Abs Auto 0.04 10^3/uL (0.00-0.03); Immature Granulocytes Pct Auto 0.3 % (0.0-0.5); Lymphocytes Absolute Auto 5.1 10^3/uL (1.2-3.8); Lymphocytes Percent Auto 35.6 % (20.5-60.0); Mean Corpuscular HGB Conc 33.4 g/dL (29.9-35.2); Mean Corpuscular Hemoglobin 31.1 pg (26.7-34.0); Mean Corpuscular Volume 93.1 fL (81.0-99.0); Mean Platelet Volume 11.1 fL (9.5-13.5); Monocytes Percent Auto 7.1 % (1.7-12.0); Neutrophils Absolute Auto 7.9 10^3/uL (1.4-6.5); Neutrophils Percent Auto 55.7 % (43.0-75.0); Platelet Count 270 10^3/uL (150-450); Red Blood Count 4.66 10^6/uL (4.20-5.40); Red Cell Distribution Width 14.2 % (11.0-15.0); White Blood Count 14.2 10^3/uL (4.0-11.0)
[2024-03-31 08:56] LABS: Erythrocyte Sedimentation Rate 39 mm/hr (<=20)
[2024-03-31 09:01] LABS: Free T4 0.97 ng/dL (0.76-1.46)
[2024-03-31 09:02] LABS: Estimated Average Glucose 114 mg/dL; Glycohemoglobin A1C 5.6 % (4.5-6.2)
[2024-03-31 09:40] LABS: Alanine Aminotransferase 20 U/L (14-59); Albumin Globulin Ratio 1.1; Albumin Level 3.9 g/dL (3.4-5.0); Alkaline Phosphatase 92 U/L (46-116); Anion Gap 13.2; Aspartate Amino Transferase 9 U/L (15-37); BUN Creatinine Ratio 13.4; Bilirubin Total 0.2 mg/dL (0.2-1.0); C Reactive Protein <0.50 mg/dL (<=0.50); Calcium 9.4 mg/dL (8.5-10.1); Carbon Dioxide 26.6 mmol/L (21.0-32.0); Chloride 107 mmol/L (98-107); Chol HDL Ratio 3.7; Cholesterol 219 mg/dL (<=200); Estimated GFR (African America >60 (>=60); Estimated GFR (Non-African Ame >60 (>=60); Globulin 3.7 g/dL; Glucose 90 mg/dL (74-106); HDL Cholesterol 60 mg/dL (40-60); Potassium 3.8 mmol/L (3.5-5.1); Sodium 143 mmol/L (136-145); Total Protein 7.6 g/dL (6.4-8.2); Triglycerides 93 mg/dL (<=150); Uric Acid 4.6 mg/dL (2.6-6.0); VLDL CHOLESTEROL 18.6 mg/dL
[2024-04-01 06:09] LABS: Antistreptolysin O Ab 329.7 IU/mL (0.0-200.0); Rheumatoid Factor (RF) <10.0 IU/mL (<14.0)
[2024-04-03 19:07] LABS: Antinuclear Antibodies, IFA Negative (.)
== END 2024-03-31 07:21 | disposition home or self-care (01) ==
PROVIDERS: PCP Family Medicine; Visit Provider Family Medicine
DX: G47.33 Obstructive sleep apnea (adult) (pediatric) (principal); M19.90 Unspecified osteoarthritis, unspecified site; G62.9 Polyneuropathy, unspecified; M48.54XA Collapsed vertebra, not elsewhere classified, thoracic region, initial encounter for fracture
CPT/HCPCS: 36415; 72110; 73523; 80053; 80061; 83036; 84439; 84443; 84550; 85025; 85652; 86038; 86060; 86140; 86431

== ENCOUNTER 2024-04-14 08:26 | Day surgery (SDC) | payer OTHER, SELFPAY ==
--- NOTE | 2024-04-14 08:33 | FL_ITS ---
[address] [address] Patient Name: NEVAEH SHETH MRN: [id number] date: 1975 Sex: F [facility] Accession/Order Number: [id number] Exam Date: 04/14/2024 08:50 Report Date: 04/14/2024 10:31 At the request of: REJI ASHLEY Procedure: FL guided lumbar puncture LP EXAMINATION: FL guided lumbar puncture LP HISTORY: History Spinal Fluid Infection, Fever COMPARISON: XR lumbar spine 03/31/2024 FLUORO DOSE: (Cannot be calculated) mGy Reference air kerma (Ka,r) TECHNIQUE: A lumbar puncture was performed in the usual sterile manner after obtaining informed consent. Standard level fluoroscopic mode of operation utilized. FINDINGS: LEVEL: L3-4 NEEDLE: 22-gauge spinal needle FLUID OBTAINED: Approximately 14 mL of clear fluid divided between 4 collection tubes. MEDICATIONS: 1% buffered lidocaine for local anesthesia. COMPLICATIONS: None. FL/FL guided lumbar puncture LP IMPRESSION: 1. Uneventful lumbar puncture. The patient was provided aftercare instructions. 2. Cytology results are pending. Electronically authenticated by: MARLY REYES Date: 04/14/2024 10:31
[2024-04-14 08:50] VITALS: BP 166/97; PULSE 91; TEMP 36.4; O2SAT 96
[2024-04-14] MEDS: LIDOCAINE HCL 10 ML, SODIUM BICARBONATE 1 MEQ INJ (09:35)
[2024-04-14 10:10] VITALS: BP 117/74; PULSE 71; O2SAT 95
[2024-04-14 10:39] LABS: Glucose CSF 64 mg/dL (40-70); Total Protein CSF 47 mg/dL (15-45)
--- NOTE | 2024-04-14 10:50 | SUR.PREOP ---
04/12/24 Pt instructed on procedure, date, time, and prep.
--- NOTE | 2024-04-14 11:10 | PC.NURSE ---
0940 During CSF removal pt stated that her symptoms are gone. she no longer has tinnitis and the bone pressure. 0950 Assisted pt with moving to stretcher. Pt laying prone and hob flat. Pt states that now she can eat and sleep and all of her symptoms are gone. Pt taken to holding area by cart. Bed low. Side rails up x 2. Call light in reach. Pt is so happy to be rid of her symptoms and removing that CSF has fixed her problems. 0955 Pt mom brought to bedside. 1010 Pt denies c/o of any problems. Pt so happy that she can go home a sleep now. Bandaid dry and intact.
[2024-04-14 11:57] LABS: CSF Clarity CLEAR (CLEAR); CSF Color COLORLESS (COLORLESS); CSF Total Volume 14 mL; CSF Tube # 3
[2024-04-14 11:58] LABS: Red Blood Cell CSF 0 cubic mm (0-0); Red Blood Cell CSF Side 1 0; Red Blood Cell CSF Side 2 0; White Blood Cell CSF 0 cubic mm (0-5); White Blood Cell CSF Side 1 1; White Blood Cell CSF Side 2 0
== END 2024-04-14 10:25 | disposition home or self-care (01) ==
LOC: FL 08:26
PROVIDERS: Radiology Diagnostic Radiology; PCP Family Medicine; Visit Provider Family Medicine
DX: R50.9 Fever, unspecified (principal); D72.829 Elevated white blood cell count, unspecified; Z86.19 Personal history of other infectious and parasitic diseases
CPT/HCPCS: 36415; 62328; 82945; 84157; 87070; 87075; 87102; 87116; 87205; 87206; 89050

== ENCOUNTER 2024-04-17 11:35 | Emergency (ER) | payer OTHER, SELFPAY ==
[2024-04-17 11:55] VITALS: BP 168/110; PULSE 104; TEMP 37; O2SAT 98; BMI 28.8
--- NOTE | 2024-04-17 12:11 | ECG_ITS ---
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
--- NOTE | 2024-04-17 12:20 | ED.PSYCH1 ---
HPI - Psych General Chief Complaint: Psychiatric Symptoms Stated Complaint: ANXIETY SITUATIONAL CRISIS Time Seen by Provider: 04/17/24 12:15 Source: Reports patient Mode of arrival: walk-in Limitations: Reports no limitations History of Present Illness HPI Narrative: 48-year-old female presents to the emergency department for psychiatric evaluation. The patient was sent here from PCPs office where she was banging on doors and making no sense. She was talking about [place] syndrome and talking about white blood cells coming out of her fingers. She continues similar thoughts here, talking about [place] syndrome. She reports that she flushed all of her medications down the toilet because she did not need them anymore because they were not helping her. She is accompanied by her mother. She apparently has been this way increasingly so for a few weeks Related Data Home Medications ?Medication ?Instructions ?Recorded ?Confirmed duloxetine 60 mg capsule,delayed 120 mg PO DAILY 09/07/23 04/17/24 release lorazepam 1 mg tablet 1 mg PO TID PRN dyspnea 09/07/23 04/17/24 trazodone 100 mg tablet 200 mg PO .QHS 09/07/23 04/17/24 cefdinir 300 mg capsule 600 mg PO DAILY 04/13/24 04/17/24 deutetrabenazine 12 mg 12 mg PO DAILY 04/14/24 04/14/24 tablet,extended release 24 hr (Austedo XR) gabapentin 600 mg tablet 1,200 mg PO BID 04/17/24 04/17/24 hydroxyzine HCl 25 mg tablet 25 mg PO Q8H PRN anxiety 04/17/24 04/17/24 Allergies Allergy/AdvReac Type Severity Reaction Status Date / Time amoxicillin Allergy Hives Verified 04/17/24 11:54 doxycycline Allergy Hives Verified 04/17/24 11:54 pregabalin [From Lyrica] Allergy Hives Verified 04/17/24 11:54 vancomycin Allergy Hives Verified 04/17/24 11:54 ziprasidone [From Geodon] Allergy Hives Verified 04/17/24 11:54 Review of Systems ROS Narrative Not obtainable, psychiatric disorder PFSH PFS Medical History (Updated 04/17/24 @ 18:33 by Jesus Estes MD) Bilateral tinnitus ?H93.13 - Tinnitus, bilateral (ICD-10) Vertigo ?R42 - Dizziness and giddiness (ICD-10) 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 - Meniere's disease, unspecified ear (ICD-10) Meningitis ?G03.9 - Meningitis, unspecified (ICD-10) Elevated white blood cell count ?D72.829 - Elevated white blood cell count, unspecified (ICD-10) [place] ?B09 - Unspecified viral infection characterized by skin and mucous membrane lesions (ICD-10) Arthritis ?M19.90 - Unspecified osteoarthritis, unspecified site (ICD-10) Psoriasis ?L40.9 - Psoriasis, unspecified (ICD-10) Fibromyalgia ?M79.7 - Fibromyalgia (ICD-10) Neuropathy ?G62.9 - Polyneuropathy, unspecified (ICD-10) Anxiety ?F41.9 - Anxiety disorder, unspecified (ICD-10) Bipolar 1 disorder, mixed ?F31.60 - Bipolar disorder, current episode mixed, unspecified (ICD-10) Asthma ?J45.909 - Unspecified asthma, uncomplicated (ICD-10) Compression fracture Surgical History (Updated 04/14/24 @ 10:08 by Leticia Saenz) S/P insertion of spinal cord stimulator ?Z96.89 - Presence of other specified functional implants (ICD-10) History of dental surgery ?Z92.89 - Personal history of other medical treatment (ICD-10) Hx of myringotomy ?Z98.890 - Other specified postprocedural states (ICD-10) History of carpal tunnel release of both wrists ?Z98.890 - Other specified postprocedural states (ICD-10) Hx of cholecystectomy ?Z90.49 - Acquired absence of other specified parts of digestive tract (ICD-10) History of hysterectomy with bilateral oophorectomy ?Z90.710 - Acquired absence of both cervix and uterus (ICD-10) ?Z90.722 - Acquired absence of ovaries, bilateral (ICD-10) History of exploratory laparotomy ?Z98.890 - Other specified postprocedural states (ICD-10) History of appendectomy ?Z90.49 - Acquired absence of other specified parts of digestive tract (ICD-10) H/O right inguinal hernia repair ?Z98.890 - Other specified postprocedural states (ICD-10) ?Z87.19 - Personal history of other diseases of the digestive system (ICD-10) S/P foot surgery, right ?Z98.890 - Other specified postprocedural states (ICD-10) Social History Smoking status: Current every day smoker Exam Narrative Exam Narrative: Nurses note and vital signs reviewed and patient is not hypoxic. General: The patient appears in no apparent distress. Patient is restless. She speaks loudly with pressured speech. Skin: Warm, dry, no pallor noted. There is no rash noted. Head: Normocephalic, atraumatic Eye: Normal conjunctiva, no drainage, EOMI. PERRL Ears, Nose, Mouth, and Throat: oral mucosa is moist. Nares patent. Cardiovascular: Regular Rate and Rhythm Respiratory: Patient is in no distress, no accessory muscle use, lungs are clear to auscultation, no wheezing, rales or rhonchi Back: non-tender GI: Soft and nontender Musculoskeletal: The patient has no evidence of calf tenderness, no pitting edema, symmetrical pulses noted bilaterally Neurological: Awake alert and oriented Psychiatric: Cooperative. Flight of ideas, pressured speech. Constitutional Vital Signs, click to edit/add: Last Vital Signs Temp 98.6 F 04/17/24 11:55 Pulse 72 04/17/24 16:49 Resp 20 04/17/24 16:49 BP 138/80 04/17/24 16:49 Pulse Ox 98 04/17/24 16:49 O2 Del Method Room Air 04/17/24 16:49 Course Vital Signs Vital signs: Vital Signs Temperature 98.6 F 04/17/24 11:55 Pulse Rate 104 H 04/17/24 11:55 Respiratory Rate 20 04/17/24 11:55 Blood Pressure 168/110 H 04/17/24 11:55 Pulse Oximetry 98 04/17/24 11:55 Oxygen Delivery Method Room Air 04/17/24 11:55 Temperature 98.6 F 04/17/24 11:55 Pulse Rate 72 04/17/24 16:49 Respiratory Rate 20 04/17/24 16:49 Blood Pressure 138/80 04/17/24 16:49 Pulse Oximetry 98 04/17/24 16:49 Oxygen Delivery Method Room Air 04/17/24 16:49 MDM - Psych MDM Narrative Medical decision making narrative: The patient is medically cleared and is suffering from psychosis. She has been evaluated by mental health services and accepted at [facility]. She is being transferred there [facility]. She is stable for transfer. Differential Diagnosis Differential diagnosis: Likely acute psychosis, bipolar disorder, depression and acute anxiety Lab Data Attestation: I reviewed the patient's lab results. Labs: Lab Results 04/17/24 04/17/24 Range/Units 12:15 12:25 WBC 9.7 (4.0-11.0) 10^3/uL RBC 4.98 (4.20-5.40) 10^6/uL Hgb 15.7 (12.0-16.0) g/dL Hct 45.6 (36.0-48.0) % MCV 91.6 (81.0-99.0) fL MCH 31.5 (26.7-34.0) pg MCHC 34.4 (29.9-35.2) g/dL RDW 13.7 (11.0-15.0) % Plt Count 349 (150-450) 10^3/uL MPV 10.3 (9.5-13.5) fL Neut % (Auto) 70.3 (43.0-75.0) % Lymph % (Auto) 20.0 L (20.5-60.0) % [place] % (Auto) 6.3 (1.7-12.0) % Eos % (Auto) 1.9 (0.9-7.0) % Baso % (Auto) 1.3 (0.2-2.0) % Neut # (Auto) 6.8 H (1.4-6.5) 10^3/uL Lymph # (Auto) 1.9 (1.2-3.8) 10^3/uL [place] # (Auto) 0.6 (0.3-0.8) 10^3/uL Eos # (Auto) 0.2 (0.0-0.7) 10^3/uL Baso # (Auto) 0.1 (0.0-0.1) 10^3/uL Abs Immat Gran (auto) 0.02 (0.00-0.03) 10^3/uL Imm/Tot Granulo (auto) 0.2 (0.0-0.5) % Sodium 137 (136-145) mmol/L Potassium 3.7 (3.5-5.1) mmol/L Chloride 99 (98-107) mmol/L Carbon Dioxide 25.0 (21.0-32.0) mmol/L Anion Gap 16.7 BUN 8.0 (7.0-18.0) mg/dL Creatinine 1.02 (0.55-1.02) mg/dL Est GFR ( Amer) >60 (>=60) Est GFR (Non-Af Amer) 58 L (>=60) BUN/Creatinine Ratio 7.8 Glucose 126 H (74-106) mg/dL Calcium 9.8 (8.5-10.1) mg/dL Total Bilirubin 0.4 (0.2-1.0) mg/dL AST 23 (15-37) U/L ALT 32 (14-59) U/L Alkaline Phosphatase 92 (46-116) U/L Total Protein 8.3 H (6.4-8.2) g/dL Albumin 4.2 (3.4-5.0) g/dL Globulin 4.1 g/dL Albumin/Globulin Ratio 1.0 Urine Color Yellow (YELLOW) Urine Clarity Clear (CLEAR) Urine pH 6.0 (5.0-9.0) Ur Specific [place] >=1.030 A (1.005-1.025) Urine Protein Trace (NEG/TRACE) mg/dL Urine Glucose (UA) Negative (NEGATIVE) mg/dL Urine Ketones 15 A (NEGATIVE) mg/dL Urine Occult Blood Negative (NEGATIVE) Urine Nitrite Negative (NEGATIVE) Urine Bilirubin Small A (NEGATIVE) Urine Urobilinogen 0.2 (0.2-1.0) EU/dL Ur Leukocyte Esterase Negative (NEGATIVE) Salicylates 5.5 (<=19.9) mg/dL Urine Opiates Screen Negative (NEGATIVE) Ur Buprenorphine Scrn Negative (NEGATIVE) Ur Oxycodone Screen Negative (NEGATIVE) Urine Methadone Screen Negative (NEGATIVE) Acetaminophen <2.0 L (10.0-30.0) ug/mL Ur Barbiturates Screen Negative (NEGATIVE) U Tricyclic Antidepress Negative (NEGATIVE) Ur Phencyclidine Scrn Negative (NEGATIVE) Ur Amphetamines Screen Negative (NEGATIVE) U Methamphetamines Scrn Negative (NEGATIVE) U Benzodiazepines Scrn Negative (NEGATIVE) Urine Cocaine Screen Negative (NEGATIVE) U Cannabinoids Screen Positive A (NEGATIVE) Ethanol Quant <3 mg/dL ECG Data Attestation: I personally reviewed and interpreted this ECG as follows: (EKG on my interpretation shows normal sinus rhythm with a rate of 84 and no acute change.) Discharge Plan Discharge Chief Complaint: Psychiatric Symptoms Clinical Impression: Psychosis Patient Disposition: [facility] Time of Disposition Decision: 18:33 Discharge Location: [facility] Condition: Fair Mode of Transportation: Mental Health Car
[2024-04-17 12:39] LABS: Bilirubin Urine SMALL (NEGATIVE); Blood Urine NEGATIVE (NEGATIVE); Clarity Urine CLEAR (CLEAR); Color Urine YELLOW (YELLOW); Glucose Urine UA NEGATIVE (NEGATIVE); Ketones Urine 15 mg/dL (NEGATIVE); Leukocyte Esterase Urine NEGATIVE (NEGATIVE); Nitrite Urine NEGATIVE (NEGATIVE); Protein Urine TRACE mg/dL (NEG/TRACE); Specific Gravity Urine >=1.030 (1.005-1.025); Urine Microscopic Indicated NO; Urobilinogen Urine 0.2 EU/dL (0.2-1.0)
[2024-04-17 12:52] LABS: Amphetamine Screen Urine NEGATIVE (NEGATIVE); Barbiturates Screen Urine NEGATIVE (NEGATIVE); Benzodiazepines Screen Urine NEGATIVE (NEGATIVE); Buprenorphine Screen Urine NEGATIVE (NEGATIVE); Cannabinoid Screen Urine POSITIVE (NEGATIVE); Cocaine Screen Urine NEGATIVE (NEGATIVE); Methadone Screen Urine NEGATIVE (NEGATIVE); Methamphetamines Screen Urine NEGATIVE (NEGATIVE); Opiate Screen Urine NEGATIVE (NEGATIVE); Oxycodone Screen Urine NEGATIVE (NEGATIVE); Phencyclidine Screen Urine NEGATIVE (NEGATIVE); Tricyclic Antidepressant Urine NEGATIVE (NEGATIVE)
[2024-04-17 12:55] LABS: Basophils Absolute Auto 0.1 10^3/uL (0.0-0.1); Basophils Percent Auto 1.3 % (0.2-2.0); Eosinophils Absolute Auto 0.2 10^3/uL (0.0-0.7); Eosinophils Percent Auto 1.9 % (0.9-7.0); Hematocrit 45.6 % (36.0-48.0); Hemoglobin 15.7 g/dL (12.0-16.0); Immature Granulocytes Abs Auto 0.02 10^3/uL (0.00-0.03); Immature Granulocytes Pct Auto 0.2 % (0.0-0.5); Lymphocytes Absolute Auto 1.9 10^3/uL (1.2-3.8); Mean Corpuscular HGB Conc 34.4 g/dL (29.9-35.2); Mean Corpuscular Hemoglobin 31.5 pg (26.7-34.0); Mean Corpuscular Volume 91.6 fL (81.0-99.0); Mean Platelet Volume 10.3 fL (9.5-13.5); Monocytes Absolute Auto 0.6 10^3/uL (0.3-0.8); Monocytes Percent Auto 6.3 % (1.7-12.0); Neutrophils Absolute Auto 6.8 10^3/uL (1.4-6.5); Neutrophils Percent Auto 70.3 % (43.0-75.0); Platelet Count 349 10^3/uL (150-450); Red Blood Count 4.98 10^6/uL (4.20-5.40); Red Cell Distribution Width 13.7 % (11.0-15.0); White Blood Count 9.7 10^3/uL (4.0-11.0)
[2024-04-17 13:08] LABS: Alanine Aminotransferase 32 U/L (14-59); Albumin Level 4.2 g/dL (3.4-5.0); Alkaline Phosphatase 92 U/L (46-116); Anion Gap 16.7; Aspartate Amino Transferase 23 U/L (15-37); BUN Creatinine Ratio 7.8; Bilirubin Total 0.4 mg/dL (0.2-1.0); Calcium 9.8 mg/dL (8.5-10.1); Chloride 99 mmol/L (98-107); Estimated GFR (African America >60 (>=60); Estimated GFR (Non-African Ame 58 (>=60); Globulin 4.1 g/dL; Glucose 126 mg/dL (74-106); Potassium 3.7 mmol/L (3.5-5.1); Salicylate 5.5 mg/dL (<=19.9); Sodium 137 mmol/L (136-145); Total Protein 8.3 g/dL (6.4-8.2)
[2024-04-17 13:11] LABS: Acetaminophen <2.0 ug/mL (10.0-30.0)
[2024-04-17 13:33] LABS: Ethanol <3 mg/dL
[2024-04-17] MEDS: ONDANSETRON 4 MG RAPDIS TABLET SL (15:30)
[2024-04-17 16:49] VITALS: BP 138/80; PULSE 72; O2SAT 98
== END 2024-04-17 21:00 ==
PROVIDERS: Emergency Provider Emergency Medicine; PCP Family Medicine
DX: F29 Unspecified psychosis not due to a substance or known physiological condition (principal)
CPT/HCPCS: 36415; 80053; 80179; 80307; 80320; 80329; 81003; 85025; 93005; 99285; Q0162

== ENCOUNTER 2024-04-28 08:54 | Outpatient (OUT) | payer OTHER, SELFPAY ==
--- NOTE | 2024-04-28 08:58 | FL_ITS ---
The [address] [address] Patient Name: NEVAEH SHETH MRN: [id number] date: 1975 Sex: F [place]igned Patient Location: [place] Current Patient Location: [place] Accession/Order Number: [id number] Exam Date: 04/28/2024 09:05 Report Date: 04/28/2024 12:00 At the request of: REIJ ASHLEY Procedure: FL small bowel follow through PROCEDURE: FL upper GI w air, FL small bowel follow through, FL cineradiography COMPARISON: None. FLUORO DOSE: 1.0 minutes of fluoroscopy. 9 images HISTORY: Gastroesophageal Reflux Disease TECHNIQUE: An air contrast upper gastrointestinal series was performed in the usual manner. Standard level fluoroscopic mode of operation utilized. FINDINGS: ESOPHAGUS:Tertiary nonpropulsive contractions. Small amount of gastroesophageal reflux STOMACH: Normal. No obstruction, mass, or ulceration. Normal motility. DUODENUM:Normal. No ulceration or diverticulum. Jejunum: Normal Ileum: Normal Small bowel transit time: 2090 and 120 minutes OTHER: Negative. FL/FL small bowel follow through IMPRESSION: Small amount of gastroesophageal reflux with tertiary esophageal nonpropulsive contractions Otherwise normal upper GI and small bowel follow-through Electronically authenticated by: ARIK BERKOWITZ Date: 04/28/2024 12:00
--- NOTE | 2024-04-28 08:58 | FL_ITS ---
The [address] [address] Patient Name: NEVAEH SHETH MRN: [id number] date: 1975 Sex: F Assigned Patient Location: [place] Current Patient Location: [place] Accession/Order Number: [id number] Exam Date: 04/28/2024 09:05 Report Date: 04/28/2024 12:00 At the request of: REJI ASHLEY Procedure: FL upper GI w air PROCEDURE: FL upper GI w air, FL small bowel follow through, FL cineradiography COMPARISON: None. FLUORO DOSE: 1.0 minutes of fluoroscopy. 9 images HISTORY: Gastroesophageal Reflux Disease TECHNIQUE: An air contrast upper gastrointestinal series was performed in the usual manner. Standard level fluoroscopic mode of operation utilized. FINDINGS: ESOPHAGUS:Tertiary nonpropulsive contractions. Small amount of gastroesophageal reflux STOMACH: Normal. No obstruction, mass, or ulceration. Normal motility. DUODENUM:Normal. No ulceration or diverticulum. Jejunum: Normal Ileum: Normal Small bowel transit time: 2090 and 120 minutes OTHER: Negative. FL/FL upper GI w air IMPRESSION: Small amount of gastroesophageal reflux with tertiary esophageal nonpropulsive contractions Otherwise normal upper GI and small bowel follow-through Electronically authenticated by: ARIK BERKOWITZ Date: 04/28/2024 12:00
--- NOTE | 2024-04-28 08:58 | FL_ITS ---
The [address] [address] Patient Name: NEVAEH SHETH MRN: [id number] date: 1975 Sex: F Assigned Patient Location: [place] Current Patient Location: [place] Accession/Order Number: [id number] Exam Date: 04/28/2024 09:05 Report Date: 04/28/2024 12:00 At the request of: REJI ASHLEY Procedure: FL cineradiography PROCEDURE: FL upper GI w air, FL small bowel follow through, FL cineradiography COMPARISON: None. FLUORO DOSE: 1.0 minutes of fluoroscopy. 9 images HISTORY: Gastroesophageal Reflux Disease TECHNIQUE: An air contrast upper gastrointestinal series was performed in the usual manner. Standard level fluoroscopic mode of operation utilized. FINDINGS: ESOPHAGUS:Tertiary nonpropulsive contractions. Small amount of gastroesophageal reflux STOMACH: Normal. No obstruction, mass, or ulceration. Normal motility. DUODENUM:Normal. No ulceration or diverticulum. Jejunum: Normal Ileum: Normal Small bowel transit time: 2090 and 120 minutes OTHER: Negative. FL/FL cineradiography IMPRESSION: Small amount of gastroesophageal reflux with tertiary esophageal nonpropulsive contractions Otherwise normal upper GI and small bowel follow-through Electronically authenticated by: ARIK BERKOWITZ Date: 04/28/2024 12:00
--- OUTSIDE RECORDS SUMMARY | 2024-04-28 09:04 | XMS_ITS | CCD ---
Author Organization [facility] Care Team Providers Care Freelance Digital Project Manager Name Role Phone Justyn Melendez MD Unavailable Justyn Melendez MD Primary Care Provider [phone] KINDRA FLORES Referring Unavailable KINDRA FLORES Attending Unavailable KINDRA FLORES Admitting Unavailable Justyn Melendez Primary Care Physician [phone] Justyn Melendez MD Primary Care Provider [phone] DIO MERCADO Admitting Unavailable DIO MERCADO Consulting Unavailable DIO MERCADO Attending Unavailable GABI ., DR MENDOZA Primary Care Unavailable GABI ., DR MENDOZA Consulting Unavailable GABI ., DR MENDOZA Attending Unavailable GABI ., DR MENDOZA Admitting Unavailable GABI ., DR MENDOZA Primary Care Unavailable RALEIGH, DR ARIK Schmidt Consulting Unavailable SANDRA, DR KINDRA Hercules Admitting Unavailable SANDRA, DR KINDRA Hercules Attending Unavailable GABI ., DR MENDOZA Primary Care Unavailable SANDRA, DR KINDRA Hercules Consulting Unavailable Justine Saunders Unavailable Unavailable Primary Care Provider Unavailjarred Larios DMD, MD, Justin Unavailable [phone] PROVIDER, UNKNOWN Admitting Unavailable PROVIDER, UNKNOWN Attending Unavailable NATHAN VICTORIA Referring Unavailable PROVIDER, UNKNOWN Admitting Unavailable PROVIDER, UNKNOWN Attending Unavailable HUGO LARIOS Referring Unavailable HUGO LARIOS Admitting Unavailable HUGO LARIOS Attending Unavailable PROVIDER, UNKNOWN Admitting Unavailable PROVIDER, UNKNOWN Attending Unavailable Justyn Melendez MD Primary Care Provider ANGELICA PAZ Attending Unavailable ANGELICA PAZ Referring Unavailable Charli Valdez Attending Unavailab le Hoy, Justyn M Primary Care Unavailable Charli Valdez Admitting Unavailab Justine Redman Admitting Unavailable Justine Saunders Attending Unavailable MD Justyn Melendez Primary Care Provider [id number] MD Charli Valdez Admit Provider MD Charli Valdez Attending Provider [phone] [place] CHILD Attending Unavailable HOY, JUSTYN M Referring Unavailable HOY, JUSTYN M Primary Care Unavailable [place] CHILD Attending Unavailable HOY, JUSTYN M Referring Unavailable HOY, JUSTYN M Primary Care Unavailable CLIFF SANFORD Attending Unavailable HOY, JUSTYN M Referring Unavailable HOY, JUSTYN M Primary Care Unavailable [place] CHILD Attending Unavailable HOY, JUSTYN M Referring Unavailable HOY, JUSTYN M Primary Care Unavailable CLIFF SANFORD Attending Unavailable HOY, JUSTYN M Referring Unavailable HOY, JUSTYN M Primary Care Unavailable CLIFF SANFORD Attending Unavailable HOY, JUSTYN M Referring Unavailable HOY, JUSTYN M Primary Care Unavailable [place] CHILD Attending Unavailable HOY, JUSTYN M Referring Unavailable HOY, JUSTYN M Primary Care Unavailable CLIFF SANFORD Attending Unavailable HOY, JUSTYN M Referring Unavailable HOY, JUSTYN M Primary Care Unavailable [place] CHILD Attending Unavailable HOY, JUSTYN M Referring Unavailable HOY, JUSTYN M Primary Care Unavailable [place] CHILD Attending Unavailable HOY, JUSTYN M Referring Unavailable HOY, JUSTYN M Primary Care Unavailable CLIFF SANFORD Attending Unavailable HOY, JUSTYN M Referring Unavailable HOY, JUSTYN M Primary Care Unavailable CLIFF SANFORD Attending Unavailable HOY, JUSTYN M Referring Unavailable HOY, JUSTYN M Primary Care Unavailable CLIFF SANFORD Attending Unavailable HOY, JUSTYN M Referring Unavailable HOY, JUSTYN M Primary Care Unavailable [place] CHILD Attending Unavailable HOY, JUSTYN M Referring Unavailable HOY, JUSTYN M Primary Care Unavailable CLIFF SANFORD Attending Unavailable HOY, JUSTYN M Referring Unavailable HOY, JUSTYN M Primary Care Unavailable [place] CHILD Attending Unavailable JUSTYN MELENDEZ Referring Unavailable JUSTYN MELENDEZ Primary Care Unavailable Allergies Allergy Classification Reported Allergen(s) Allergy Type Date of Onset Reaction(s) Facility (8 sources) Acetaminophen / oxyCODONE; Translations: [acetaminophen-ox ycodone] Drug Allergy 02-10-20 16 Unknown, Unknown (qualifier value), Anaphylaxis [facility] (1 source) Adhesive Tape Allergy to substance 02-10-20 16 Unknown [facility] (15 sources) Amoxicillin; Translations: [amoxicillin] Drug Allergy 02-10-20 16 Unknown, Unknown (qualifier value), Hives, Other [facility] (17 sources) Methadone; Translations: [methadone] Drug Allergy 02-10-20 16 Unknown, Unknown (qualifier value), Hives, Other, Other (See Comments) [facility] (11 sources) pregabalin; Translations: [pregabalin] Drug Allergy 02-10-20 16 Unknown, Unknown (qualifier value), Other (See Comments) [facility] (9 sources) ziprasidone; Translations: [ZIPRASIDONE HCL] Drug Allergy 02-10-20 16 Unknown, Hives, Other [facility] (1 source) Propoxyphene N-Acetaminophen Drug Allergy 02-10-20 16 Unknown [facility] (6 sources) Acetaminophen / oxyCODONE; Translations: [Percocet] Drug Allergy 04-17-[address] [facility] (2 sources) Acetaminophen / Propoxyphene; Translations: [Darvocet A500] Drug Allergy Unknown (qualifier value) [facility] (2 sources) Adhesive bandage; Translations: [Adhesive Bandage] Propensity to adverse reactions (disorder) Unknown (qualifier value) [facility] (2 sources) Adhesive Tape; Translations: [Tape] Propensity to adverse reactions (disorder) Unknown (qualifier value) [facility] (15 sources) Doxycycline; Translations: [doxycycline] Drug Allergy 02-16-20 19 Unknown (qualifier value), Dizziness, Hives, Other [facility] (2 sources) pregabalin; Translations: [Lyrica] Drug Allergy 04-17-[address] [facility] (1 source) Adhesive agent Drug allergy (disorder) 04-17-20 14 [facility] (1 source) Amoxicillin Drug Allergy 04-17-20 14 [facility] (1 source) Methadone Drug Allergy 04-17-20 14 [facility] (5 sources) Vancomycin; Translations: [VANCOMYCIN] Drug Allergy 01-29-20 23 Redness of Skin [facility] (1 source) ziprasidone Drug Allergy 05-08-20 16 [facility] (1 source) Darvocet-N 100 Drug allergy (disorder) 04-16-20 14 [facility] (5 sources) Adhesive Tape; Translations: [adhesive tape] Drug allergy 10-24-19 24 Unknown, Tears skin off [facility] (4 sources) oxyCODONE Drug Allergy 10-24-19 Unknown, [facility] (2 sources) Propoxyphene Drug Allergy Unknown [employer] Other (4 sources) ziprasidone Drug Allergy 10-24-19 Unknown, [facility] (4 sources) acetaminophen / propoxyphene; Translations: [PROPOXYPHENE N-APAP] Drug Allergy 06-30-20 23 Other [facility] (3 sources) Pregabalin Propensity to adverse reactions to drug 02-10-20 16 Other [facility] (3 sources) Vancomycin Drug Allergy 06-30-20 23 [facility] (4 sources) Bandage Tape; Translations: [BANDAGE TAPE] Propensity to adverse reactions 06-30-20 23 Other [facility] (3 sources) Acetaminophen; Translations: [acetaminophen] Drug Allergy 10-24-19 [facility] (3 sources) Propoxyphene; Translations: [propoxyphene] Drug Allergy 10-24-19 24 [facility] (4 sources) Adhesive Tape-Silicones; Translations: [ADHESIVE TAPE-SILICONES] Propensity to adverse reactions to drug 12-16-19 19 [facility] [employer] Work Phone: (1 source) Amoxicillin Drug Allergy 04-17-20 [facility] (1 source) Methadone Drug Allergy 04-17-20 [facility] (1 source) oxyCODONE Drug Allergy 04-17-20 [facility] (1 source) pregabalin Drug Allergy 04-17-20 [facility] (1 source) Vancomycin Drug Allergy 04-17-20 [facility] (1 source) ziprasidone Drug Allergy 04-17-20 [facility] Medications Current Medications Medication Drug Class(es) Dates Sig (Normalized) Sig (Original) acetaminophen 325 mg / HYDROcodone bitartrate 5 mg oral tablet (9 sources) Opioid Agonist Start: 07-05-2023 End: 07-08-2023 [...] 1 TAB PO Q6H June 01, 2019 1:49pm October 24, 2023 12:52pm Start: 06-18-2017 End: 09-20-2017 take 1 tablet by mouth every six hours Hydrocodone-Acetaminophen ([place]) 10-325 mg Tablet Discontinued 1 TAB PO Q6H September 17, 2017 1:00am September 20, 2017 1:44pm ARIPiprazole 20 mg oral tablet (10 sources) [...] 07-05-2023 chlorhexidine (PERIDEX) 0.12 % oral solution deutetrabenazine 6 mg oral tablet (2 sources) [...] before bedtime. 60 tablet 3 11/15/2023 Active Deutetrabenazine (Austedo Xr) 24 mg tablet extended release 24 hr (1 source) Start: 04-17-2024 take 1 tablet by mouth every twenty-four hours at bedtime Deutetrabenazine (Austedo Xr) 24 mg tablet extended release 24 hr Active 24 MG PO Bedtime April 17, 2024 12:00am diclofenac sodium 75 mg delayed release oral tablet (8 sources) Nonsteroidal Anti-inflammator y Drug Start: 10-24-2023 Diclofenac Sodium Active MG PO October 24, 2023 12:00am Start: 12-20-2020 diclofenac (VO LTAREN) 75 mg EC tablet take 1 tablet by oleg th every twelve hours diphenhydrAMINE hydrochloride 25 mg oral capsule (1 source) Histamine-1 Receptor Antagonist Start: 04-20-2024 take 1 capsule by mouth twice daily Diphenhydramine Hcl (Banophen) 25 mg Capsule Active 25 MG PO Twice daily 30 April 20, 2024 12:00am DULoxetine 30 mg delayed release oral capsule (16 sources) Serotonin and Norepinephrine Reuptake Inhibitor Start: 04-20-2024 take 90 mg by mouth at bedtime Duloxetine Active 90 MG PO Bedtime 45 15 April 20, 2024 12:00am Start: 10-24-2023 End: 04-21-2024 take 120 mg by mouth at bedtime Duloxetine Discontinue d 120 MG PO Bedtime October 24, 2023 1:00am April 21, 2024 7:45am Start: 10-24-2023 Duloxetine Act xiomara MG PO October 24, 2023 12:00am Start: 09-13-2023 take 2 capsules by m outh in the morning DULoxetine (CYMBALTA) 60 mg capsule Indications: Panic disorder , Severe episode of recurrent major depressive disorder, without psychotic features (CMS-HCC) Take 2 capsules (120 mg total) by [...] Discontinued 1 TAB PO Twice daily June 18, 2017 12:00am September 17, 2017 1:58pm Start: 06-18-2017 End: 06-01-2019 take 2 capsules by mouth once daily in the morning Duloxetine (Cymbalta) 60 mg Capsule,Delayed Release(Dr/Ec) Discontinued 120 MG PO Every morning June 18, 2017 12:00am June 01, 2019 1:48pm take 1 capsule by mo [facility] every twenty-four hours Cymbalta 60 MG 1 capsule Orally Once a day Active gabapentin 400 mg oral capsule (12 sources) Anti-epileptic Agent Start: 04-20-2024 take 400 mg by mouth three times daily Gabapentin Active 400 MG PO Three times daily 45 15 April 20, 2024 12:00am Start: 03-14-2021 take 1 mg by mouth t hree times daily Neurontin 400 mg Cap mg cap(s), Oral, TID, Refills(s) 0 Start Date: 03/14/21 Status: Ordered Start: 06-01-2019 End: 04-21-2024 take 300 mg by mouth every eight hours Gabapentin Discontinued 300 MG PO Q8H June 01, 2019 12:00am April 21, 2024 7:45am Start: 12-01-2018 take 1 tablet by oleg three times daily gabapentin (NEURONTIN) 600 mg tablet Indications: neuropathic pain Take 1 tablet (600 mg total) by mouth 3 (three) times a day Indications: neuropathic pain. 0 12/01/2018 Active Comment on above: Take by mouth. hyoscyamine sulfate 0.125 mg oral tablet (3 sources) Start: 03-14-2021 take 1 mg by mouth four times daily Levsin 0.125 mg SL Tab mg tab(s), Oral, QID, Refills(s) 0 Start Date: 03/14/21 Status: Ordered Start: 06-18-2017 End: 06-01-2019 take 1 mL by mouth before mealtime Hyoscyamine Sulfate Discontinued 5 ML PO Before meals June 18, 2017 12:00am June 01, 2019 1:49pm ibuprofen 600 mg oral tablet (4 sources) Nonsteroidal Anti-inflammatory Drug Start: 07-05-2023 take 1 tablet by mouth every six hours as needed for pain ibuprofen (MOTRIN) 600 MG tablet Take 1 Tablet by mouth every 6 hours as needed for Pain. 30 Tablet 3 07/05/2023 Active Start: 05-08-2023 take 1 tablet by oleg three times daily at mealtime as needed Ibuprofen 600 MG 1 tablet with food or milk as needed Orally tid prn for 10 day(s) May, Active LORazepam 1 mg oral tablet (10 sources) Benzodiazepine Start: 12-07-2023 take 1 tablet [...] y Lorazepam Active 0.5 MG PO Daily June 01, 2019 12:00am take 1 tablet by oleg th every twenty-four hours Ativan 1 MG 1 tablet at bedtime as needed Orally Once a day Active lurasidone hydrochloride 80 mg oral tablet (1 source) Atypical Antipsychotic Start: 03-14-2021 take 1 mg by mouth once daily Latuda 80 mg oral tablet mg tab(s), Oral, Daily, Refills(s) 0 Start Date: 03/14/21 Status: Ordered meclizine hydrochloride 12.5 mg oral tablet (4 sources) Antiemetic Start: 04-20-2024 take 12.5 mg by mouth twice daily Meclizine Active 12.5 MG PO Twice daily April 20, 2024 12:00am Start: 03-14-2021 take 1 mg by mouth t hree times daily meclizine 25 mg Tab mg tab(s), Oral, TID, Refills(s) 0 Start Date: 03/14/21 Status: Ordered take 1 tablet by oleg th every twelve hours as needed meclizine (ANTIVERT) 25 MG tablet 1 tablet as needed Orally every 12 hrs 0 Active medicinal THC (1 source) Start: 03-18-2021 medicinal THC medicinal THC Start Date: 03/18/21 Status: Ordered meloxicam 7.5 mg oral tablet (4 sources) Nonsteroidal Anti-inflammatory Drug Start: 12-27-2019 meloxicam (MOBIC) 15 mg tablet Start: 06-01-2019 End: 10-24-2023 take 7.5 mg by mouth once daily Meloxicam Discontinued 7.5 MG PO Daily June 01, 2019 12:00am October 24, 2023 12:52pm methocarbamol 500 mg oral tablet (1 source) Muscle Relaxant Start: 10-24-2023 Methocarbamol Active MG PO October 24, 2023 12:00am naloxone hydrochloride 40 mg/ml nasal spray (2 sources) Opioid Antagonist Start: 07-05-2023 naloxone 4 mg/0.1 mL nasal liquid Use 1 [place] in one nostril (alternate sides) as needed for Drug Overdose for up to 1 dose. Every 2-3 mins. until help arrives. 2 Each 1 07/05/2023 Active OLANZapine 5 mg oral tablet (2 sources) Atypical Antipsychotic Start: 04-20-2024 take 2.5 mg by mouth once daily Olanzapine Active 2.5 MG PO Daily April 20, 2024 12:00am Start: 04-20-2024 take 5 mg by mouth o nce daily at bedtime Olanzapine Active 5 MG PO Daily at bedtime April 20, 2024 12:00am ondansetron 4 mg disintegrating oral tablet (7 sources) Serotonin-3 Receptor Antagonist Start: 04-09-2023 ondansetron [...] Tablet,Disintegrating Active 8 MG PO Q12H June 18, 2017 12:00am take 2 tablets by mo uth once daily Zofran 4 MG 2 tablets Orally Once a day Active oxaprozin 600 mg oral tablet (1 source) Nonsteroidal Anti-inflammatory Drug Start: 04-20-2024 take 1200 mg by mouth once daily Oxaprozin Active 1200 MG PO Daily April 20, 2024 12:00am pantoprazole 40 mg delayed release oral tablet (2 sources) Proton Pump Inhibitor Start: 04-20-2024 take 40 mg by mouth once daily Pantoprazole Active 40 MG PO Daily 30 April 20, 2024 12:00am take 40 mg by mouth twice daily before mealtime pantoprazole (PROTONIX) 40 mg grps Take 40 mg by mouth twice daily before meals (0600/1600). 0 Active Comment on above: Take 40 mg by mouth twice daily before meals (0600/1600). traZODone hydrochloride 100 mg oral tablet (8 sources) Serotonin Reuptake Inhibitor Start: End: take 200 mg by mouth at bedtime Trazodone Active 200 MG PO Bedtime 60 April 20, 2024 7:41am Start: 10-24-2023 Trazodone Acti ve MG PO October 24, 2023 12:00am Start: [...] Sig (Original) ALPRAZolam 1 mg oral tablet (3 sources) Benzodiazepine Start: 06-18-2017 End: 09-20-2017 take 1 tablet by mouth four times daily Alprazolam (Xanax) 1 mg Tablet Discontinued 1 MG PO Four times daily June 18, 2017 12:00am September 20, 2017 9:55am Comment on above: Take 1 mg by mouth f our times daily. 2 ml amisulpride 2.5 mg/ml injection (1 source) Start: 07-05-2023 End: 07-05-2023 amisulpride (BARHEMSYS) injection 10 mg Start: 07-05-2023 End: 07-05-2023 amisulpride (BARHEMSYS) inje ction 10 mg amitriptyline hydrochloride 150 mg oral tablet (3 sources) Tricyclic Antidepressant Start: 12-30-2019 Amitriptyline HCl 15 0 mg tablet Start: 09-17-2017 End: 10-24-2023 take 150 mg by mouth once daily at bedtime Amitriptyline Discontinued 150 MG PO Daily at bedtime September 17, 2017 1:00am October 24, 2023 12:51pm Azithromycin (1 source) Macrolide Antimicrobial Start: 10-24-2023 End: 04-17-2024 Azithromycin Discontinued 0 PO .COMPLEX 6 October 24, 2023 1:00am April 17, 2024 9:37pm For 250 mg dose pack: take 500 mg today (day 1), then 250 mg for 4 days (days 2-5) PO baclofen 10 mg oral tablet (2 sources) gamma-Aminobutyric Acid-ergic Agonist Start: 06-01-2019 End: 10-24-2023 take 10 mg by mouth twice daily Baclofen Discontinued 10 MG PO Twice daily June 01, 2019 12:00am October 24, 2023 12:51pm bisoprolol fumarate 10 mg oral tablet (1 source) beta-Adrenergic Noah Start: 07-18-2019 bisoprolol (ZEBETA) 10 mg tablet Take by mouth. 0 07/18/2019 Active Comment on above: Take by mouth. busPIRone hydrochloride 15 mg oral tablet (4 sources) Start: 12-27-2019 busPIRone (BUSPAR) 15 mg tablet Start: 06-01-2019 End: 10-24-2023 take 10 mg by mouth three times daily Buspirone Discontinued 10 MG PO Three times daily June 01, 2019 12:00am October 24, 2023 12:51pm Comment on above: Take by mouth. ceFAZolin 2000 mg injection (3 sources) Cephalosporin Antibacterial Start: 2022 End: 2022 ceFAZolin (ANCEF) 2,000 mg in dextrose 50 mL ivpb cefdinir 300 mg oral capsule (1 source) Cephalosporin Antibacterial Start: 2023 End: 2023 Cefdinir Discontinued MG April 17, 2024 12:00am April 17, 2024 9:43pm cetirizine hydrochloride 10 mg oral capsule (1 source) Histamine-1 Receptor Antagonist Cetirizine 10 mg cap Take by mouth. 0 Active Comment on above: Take by mouth. cyclobenzaprine hydrochloride 10 mg oral tablet (6 sources) Muscle Relaxant Start: 2017 End: 2023 take 10 mg by mouth three times daily Cyclobenzaprine Discontinued 10 MG PO Three times daily 50 September 20, 2017 1:00am October 24, 2023 12:51pm diazePAM 10 mg oral tablet (2 sources) Benzodiazepine Start: 2017 End: 2018 take 1 tablet by mouth every six hours Diazepam (Valium) 10 mg Tablet Discontinued 10 MG PO Q6H September 17, 2017 1:00am June 01, 2019 1:48pm docusate sodium 100 mg oral capsule (1 source) take 1 capsule by mouth twice daily docusate sodium (COLACE) 100 mg capsule Take 100 mg by mouth twice daily. 0 Active Comment on above: Take 100 mg by mouth twice daily. eszopiclone 3 mg oral tablet (1 source) eszopiclone (TAHIR ESTA) 3 mg tab Take by mouth daily at bedtime. 0 Active Comment on above: Take by mouth daily at bedtime. hydroCHLOROthiazide 25 mg / triamterene 37.5 mg oral tablet (2 sources) Potassium-sparing Diuretic, Thiazide Diuretic Start: 2018 End: 2023 Triamterene-Hydrochlo rothiazid Discontinued 1 TAB PO June 01, 2019 12:00am October 24, 2023 12:53pm hydrOXYzine hydrochloride 50 mg oral tablet (4 sources) Antihistamine Start: 2019 hydrOXYzine HCl (ATARAX) 50 mg tablet Start: 06-01-2019 End: 10-24-2023 Hydroxyzine Hcl Discontinued 25 MG PO As Directed June 01, 2019 12:00am October 24, 2023 12:52pm lamoTRIgine 100 mg oral tablet (2 sources) Mood Stabilizer, Anti-epileptic Agent Start: 06-18-2017 End: 10-24-2023 take 0.5 tablet by mouth once daily at bedtime Lamotrigine (Lamictal) 100 mg Tablet Discontinued 0.5 TAB PO Daily at bedtime June 18, 2017 12:00am October 24, 2023 12:52pm lansoprazole 30 mg delayed release oral capsule (1 source) Proton Pump Inhibitor Start: 12-27-2019 lansoprazole (PREVACID) 30 mg capsule linaclotide (3 sources) Guanylate Cyclase-C Agonist Start: 06-18-2017 End: 06-01-2019 take 1 capsule by mouth once daily Linaclotide (Linzess) 290 mcg Capsule Discontinued 290 MCG PO Daily June 18, 2017 12:00am June 01, 2019 1:50pm Start: 06-18-2017 End: 06-01-2019 take 1 capsule by mouth once daily Linaclotide (Linzess) 290 mcg Capsule Discontinued 290 MCG PO Daily June 17, 2017 11:00pm June 01, 2019 12:50pm linaclotide 290 mcg cap Take by mouth. 0 Active Comment on above: Take by mouth. omeprazole 20 mg delayed release oral tablet (2 sources) Proton Pump Inhibitor Start: 018 End: 019 take 1 tablet by mouth twice daily Omeprazole Magnesium (Prilosec Otc) 20 mg Tablet,Delayed Release (Dr/Ec) Discontinued 20 MG PO Twice daily September 17, 2017 1:00am June 01, 2019 1:50pm OXcarbazepine 150 mg oral tablet (3 sources) Anti-epileptic Agent Start: End: take 150 mg by mouth once daily at bedtime Oxcarbazepine Discontinued 150 MG PO Daily at bedtime June 01, 2019 12:00am October 24, 2023 12:52pm Comment on above: Take by mouth. abuse-deterrent 12 hr oxyCODONE hydrochloride 40 mg extended release oral tablet (2 sources) Opioid Agonist Start: End: take 1 tablet by mouth every twelve hours, then take 1 tablet by mouth every hour Oxycodone (Oxycontin) 40 mg Tablet,Oral Only,Ext.Rel.12 Hr Discontinued 40 MG PO Q12H June 18, 2017 12:00am June 01, 2019 1:50pm pilocarpine hydrochloride 5 mg oral tablet (2 sources) Cholinergic Receptor Agonist Start: End: take 1 tablet by mouth three times daily Pilocarpine Hcl ([place] (Pilocarpine)) 5 mg tablet Discontinued 5 MG PO Three times daily June 01, 2019 12:00am October 24, 2023 12:52pm prazosin 2 mg oral capsule (1 source) alpha-Adrenergic Noah Start: prazosin (MINIPRESS) 2 mg cap 24 hr propranolol hydrochloride 80 mg extended release oral capsule (2 sources) beta-Adrenergic Noah Start: End: take 80 mg by mouth once daily Propranolol Discontinued 80 MG PO Daily June 01, 2019 12:00am October 24, 2023 12:52pm PV W-O STEVE/FERROUS FUMARATE/FA (M-VIT ORAL) (1 source) PV W-O STEVE/MCKENNA US FUMARATE/FA (M-VIT ORAL) Take by mouth. 0 Active Comment on above: Take by mouth. sulfamethoxazole 800 mg / trimethoprim 160 mg oral tablet (2 sources) Dihydrofolate Reductase Inhibitor Antibacterial, Sulfonamide Antimicrobial Start: End: take 1 tablet by mouth every twelve hours Sulfamethoxazole-Tri methoprim (Bactrim Ds) 800-160 mg Tablet Discontinued 1 TAB PO Q12H September 20, 2017 1:00am June 01, 2019 1:50pm Toradol 30 mg/ml (2 sources) Start: 023 Toradol 30 mg/ml May, 30 mg 24 hr venlafaxine 150 mg extended release oral capsule (2 sources) Serotonin and Norepinephrine Reuptake Inhibitor Start: 020 venlafaxine ER (EFFEXOR XR) 150 mg 24 hr capsule Start: 12-06-2019 venlafaxine (E FFEXOR) 75 mg tablet zolpidem tartrate 10 mg oral tablet (2 sources) gamma-Aminobutyric Acid-ergic Agonist Start: 09-17-2017 End: 06-01-2019 take 1 tablet by mouth at bedtime Zolpidem (Ambien) 10 mg Tablet Discontinued 10 MG PO Bedtime September 17, 2017 1:00am June 01, 2019 1:51pm Problems Active Problems Problem Classification Problem Date [...] 3 Resolved: 3 06-18-2023 Episodic Esophageal disorders (11 sources) Gastroesophageal reflux disease; Translations: [Gastro-esophageal reflux [...] Chronic Immunizations and screening for infectious disease (2 sources) Contact with and (suspected) exposure to other viral communicable diseases; Translations: [Contact with or exposure to other viral diseases] 10-24-2023 Episodic Mood disorders (20 sources) Depressive disorder; Translations: [Depression] Onset: 2 [...] Translations: [Dysphagia, unspecified] Episodic Other gastrointestinal disorders (4 sources) Dysphagia; Translations: [Dysphagia, unspecified] 08-18-2023 Episodic Other gastrointestinal disorders (4 sources) Constipation; Translations: [Constipation, unspecified] 08-18-2023 Episodic [...] 9 12-15-2018 Chronic Other upper respiratory infections (2 sources) Sore throat symptom; Translations: [Acute pharyngitis, unspecified] 10-24-2023 Episodic Otitis media and related conditions (1 source) Acute bilateral otitis media ; Translations: [Otitis media, unspecified, bilateral] 10-24-2023 Episodic Residual codes; unclassified (4 sources) [...] states] Onset: 3 Episodic Residual codes; unclassified (2 sources) Family history of cancer of colon; Translations: [...] unspecified; Translations: [Insomnia, unspecified] Onset: 09-13-2023 Episodic Results Test Name Value Interpretation Reference Range Facility Cholesterol in LDL Calc [Mas s/Vol]Ordered By: Charli Valdez on 04-18-2024 Cholesterol in LDL [Mass/Vol] 167 mg/dL High 0-100 [facility] Comment on above: LDL ATP III CLASSIFI CATIONLDL less than 100 mg/dL OptimalLDL 100-129 mg/dL Near or above optimalLDL 130-159 mg/dL Borderline highLDL 160-189 mg/dL HighLDL greater than 189 mg/dL Very high Cholesterol in VLDL Calc [Ma ss/Vol]Ordered By: Charli Valdez on 04-18-2024 Cholesterol in VLDL [Mass/Vol] 42 mg/dL [facility] Lipid PanelOrdered By: Adrian aVldez on 04-18-2024 Cholesterol [Mass/Vol] 245 mg/dL High 140-200 [facility] Comment on above: Result Comment: Chol less than 200 mg/dl low risk Chol 201-239 mg/dl borderline risk Chol 240 mg/dl and greater high risk Performed By: #### V [id number], TSH3 wRFLX, LIPID #### [facility] [address] Chol less than 200 m g/dl low riskChol 201-239 mg/dl borderline riskChol 240 mg/dl and greater high risk Cholesterol in HDL [Mass/Vol] 35 mg/dL [facility] Comment on above: Result Comment: HDL CHOL ATP-III CLASSIFICATION Cardiovascular Risk HDL > or equal to 60 mg/dL LOW HDL < 40 mg/dL HIGH Performed By: #### V [id number], TSH3 wRFLX, LIPID #### [facility] [address] HDL CHOL ATP-III CLA SSIFICATION Cardiovascular RiskHDL > or equal to 60 mg/dL LOWHDL < 40 mg/dL HIGH Cholesterol.total/Cho lesterol in HDL [Mass ratio] 7.0 {ratio} <5.0 [facility] Comment on above: Performed By: #### V [id number], TSH3 wRFLX, LIPID #### [facility] [address] [id number] [facility] Lipid Panelon 04-18-2024 LDL Cholesterol,Calculate d 167 mg/dL High 0-100 [facility] Comment on above: Result Comment: LDL ATP III CLASSIFICATION LDL less than 100 mg/dL Optimal LDL 100-129 mg/dL Near or above optimal LDL 130-159 mg/dL Borderline high LDL 160-189 mg/dL High LDL greater than 189 mg/dL Very high Performed By: #### V [id number], TSH3 wRFLX, LIPID #### [facility] [address] [id number] [place] Triglyceride w/Reflex 214 mg/dL High 0-149 [facility] Comment on above: Result Comment: TRIG ATP III CLASSIFICATION TRIG less than 150 mg/dL Normal TRIG 150-199 mg/dL Borderline high TRIG 200-500 mg/dL High TRIG greater than 500 mg/dL Very high Standard traceable to the Center for Disease Conrtrol and Prevention (CDC) test method. Performed By: #### V [id number], TSH3 wRFLX, LIPID #### [facility] [address] VLDL CHOLESTEROL 42 mg/dL Normal [facility] Comment on above: Performed By: #### V [id number], TSH3 wRFLX, LIPID #### [facility] [address] Thyroid Stim Hormone w/Rflxo n 04-18-2024 Thyroid Stim Hormone w/Rflx 0.57 u[iU]/mL Normal 0.45-5.33 [facility] Comment on above: Performed By: #### V [id number], TSH3 wRFLX, LIPID #### [facility] [address] Thyrotropin [Units/volume] i n Serum or PlasmaOrdered By: Charli Valdez on 04-18-2024 TSH Qn 0.57 m[IU]/L 0.45-5.33 [facility] Triglyceride [Mass/volume] i n Serum or PlasmaOrdered By: Charli Valdez on 04-18-2024 Triglyceride [Mass/Vol] 214 mg/dL High 0-149 [facility] Comment on above: TRIG ATP III CLASSIF ICATIONTRIG less than 150 mg/dL NormalTRIG 150-199 mg/dL Borderline highTRIG 200-500 mg/dL High TRIG greater than 500 mg/dL Very highStandard traceable to the Center for Disease Conrtrol and Prevention (CDC) test method. Vitamin D 25 Hydroxy Totalon 04-18-2024 Vitamin D 25 Hydroxy Total 26.6 ng/mL Low 30-100 [facility] Comment on above: Result Comment: ATA MIN D STATUS 25([place])VITAMIN D RANGE (ng/mL) Deficient <20 Insufficient 20 to <30 Sufficient 30 to 100 Reference: Uma MF,Humberto NC, Shayla MARQUEZ, et al. Evaluation,treatment, and prevention of vitamin D deficiency; an Endocrine Society clinical practice guideline. JCEM. 2010; 96(7):1911-30. PERFORMED BY: [facility] [address] [place] [address] PATHOLOGIST [employer] [place] MARROQUIN M.D. Performed By: #### V [id number], TSH3 wRFLX, LIPID #### [facility] [address] Vitamin D+Metabolites [Mass/ volume] in Serum or PlasmaOrdered By: Charli Valdez on 04-18-2024 Vitamin D+Metabolites [Mass/Vol] 26.6 ng/mL Low 30-100 [facility] Comment on above: VITAMIN D STATUS 25( [place])VITAMIN D RANGE (ng/mL) Deficient <20 Insufficient 20 to <30Sufficient 30 to 100Reference: Uma MF,Humberto NC, Shayla MARQUEZ, et al. Evaluation,treatment, and prevention of vitamin D deficiency; an Endocrine Society clinical practice guideline. JCEM. 2010; 96(7):1911-30. No Panel InformationOrdered By: Nanci Spangler on 10-24-2023 COVID/Influenza Antigen (POC) [facility] Quick Strep (POC) [facility] Progress Noteson 07-14-2023 Scheduler Authentication Interface Message Text ORAL SURGERY CLINIC [...] worsening symptoms. Milagro Varela DDS Normal [facility] Anesthesia Postprocedure Ruth danaon 07-05-2023 Scheduler Authentication Interface Message Text Anesthesia Postoperative Assessment: [...] EVENTS: No notable events documented. Normal [facility] Anesthesia Preprocedure Britany drew 07-05-2023 Scheduler Authentication Interface Message Text ASA: 1 No history of anesthetic complications Past Medical History and Review of Systems Pulmonary (+) sleep apnea, Dental - negative ROS Endo - negative ROS food specialist - negative ROS Neuro/Psych (+) depression, Cardiovascular [...] were discussed with the patient and/or legal employer relations representative. The risks, benefits and alternatives were reviewed. Questions regarding anesthesia were answered. Patient and/or legal employer relations representative knows such anesthetics and procedures may be performed by Resident physicians, Certified Anesthesiologist Assistants, or Certified Nurse Anesthetists under the supervision of a physician. The patient /or the patient's legal employer relations representative agree with the plan for anesthesia. 47 yo F presents for teeth extraction. No past medical history on file. No past surgical history on file. Social History Socioeconomic History * Marital status: Single Tobacco Use * Smoking status: Every Day Current packs/day: 0.00 Types: Cigarettes, E-cigarette Substance and Sexual Activity * Alcohol use: Not Currently * Drug use: Not Currently No current facility-administered medications on file prior to encounter. No [...] and Other Sudhakar Sena MD Normal [facility] Anesthesia Transfer Of Careo n 07-05-2023 Scheduler Authentication Interface Message Text Patient taken to [...] Ziprasidone hcl Basic Operating Room Facts: Surgeon(s): Hugo Larios DMD, MD Anesthesiologist: Sudhakar Sena MD CAA: Ailyn Easton CAA EXTRACTION, TOOTH Intraoperative Events: No acute [...] Sudhakar Sena MD Normal [facility] 07-05-2023 Scheduler Authentication Interface Message Text [facility] Division of seed service advisor [address] [place] [address] Dr. [place], [place] [address] OPERATIVE NOTE Name: Nevaeh Guo MR#: [id number] ENC#: Data Unavailable Surgical Case #: Data Unavailable Date of Procedure: 07/05/2023 ? 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 ATTENDING SURGEON: Hugo Larios ? FIRST SURGEON: Hugo Larios DMD, MD ? SECOND SURGEON: Renae [...] transferred onto the operating room table under [employer] own power. The patient was then placed [...] parts of the procedure. ? ? ? Hugo Larios DMD, MD Normal [facility] PSE Call H AND Pablo 3 Scheduler Authentication Interface Message Text Telephone History Nevaeh Guo, [id number] 06/30/2023 47 year old Patient was identified by name and date of . Christine Krishnan APRN-KETTY HISTORY OF PRESENT ILLNESS: Nevaeh Guo is a 47 year old female [...] for pain Please hold all Vitamin E, Keeling 3, fish oil and herbal supplements for 1 week prior to surgery DAY OF SURGERY NOTES: The patient is to have nothing to eat or drink after midnight. Christine Krishnan, VARSITY BASEBALL COACH-DENTAL HYGIENIST Time Spent Performing this Telephone History: 15 minutes Normal [facility] Progress Noteson 06-21-2023 Scheduler Authentication Interface Message Text Teaching Physician Note: I saw and evaluated the patient. I personally obtained the leary and critical portions of the history and physical exam. I reviewed the resident's documentation and discussed the patient with the resident. I agree with the resident's medical decision making as documented in the resident's note. Hugo Larios DMD, MD Normal [facility] Patient Instructionson 06-18 Scheduler Authentication Interface Message Text Oral Surgery General [...] of surgery. 12. Do not wear: nail greek, contact lenses, jewelry. 13. Do wear: loose clothes with short sleeves, long pants, shoes (no high heals). 14. Please call our office to cancel your appointment if you feel sick. Following is the address to the surgery center: [facility] [address] [place] [address]. [place] [address] [facility] Progress Noteson 06-18-2023 Scheduler Authentication Interface Message Text OMFS PATIENT VISIT [...] asymmetry or swelling No appreciable LAD No popping/clicking/crep itus of TMJ b/l No tenderness to palpation [...] at . Gilbert Peñaloza DDS Normal [facility] Urinalysis - AUTOMATEDon Appearance (U) CLEAR [employer] Other Bilirubin Ql (U) Negative [employer] Other Color (U) YELLOW [employer] Other Glucose Ql (U) Negative [employer] Other Hemoglobin Ql (U) Negative [employer] Other Ketones Ql (U) Negative [employer] Other Leukocyte esterase Test strip Ql (U) Negative [employer] Other Nitrite Ql (U) Negative [employer] Other pH (U) 6.0 [pH] [employer] Other Protein Ql (U) Negative [employer] Other Specific gravity (U) [Rel density] 1.025 [employer] Other Urobilinogen (U) [Mass/Vol] 0.2 E.U [employer] Other Urinalysis - AUTOMATED [employer] Other Urine Cultureon 05-08-2023 Bacteria identified Cx Nom (U) Reason for Exam Urinary frequency Urine >100,000 colonies/ml mixed bacterial skin contaminants 2 Days PERFORMED BY: [facility] [address] [facility] [place] [address] PATHOLOGIST [employer] [place] MARROQUIN M.D. Normal [facility] Comment on above: Performed By: #### C UU #### [address] Bacteria identified Cx Nom (U) [employer] Other CBC AUTO DIFFon 01-28-2023 BASO # 0.1 103/ul Normal 0.0-0.1 [facility] Comment on above: Performed By: #### C BC #### [facility] [address] [address] [address] Mando Reyes Basophils/100 WBC (Bld) 1.3 % Normal 0.2-2.0 [facility] Comment on above: Performed By: #### C BC #### [facility] [address] [address] [address] Mando Reyes EO # 0.4 103/ul Normal 0.0-0.7 [facility] Comment on above: Performed By: #### C BC #### [facility] [address] [place] [address] Dr. Mando Reyes Eosinophils/100 WBC (Bld) 3.4 % Normal 0.9-7.0 [facility] Comment on above: Performed By: #### C BC #### [facility] [address] [place] [address] Dr. Mando Reyes Erythrocyte distribution width (RBC) [Ratio] 13.6 % Normal 11.0-15.0 [facility] Comment on above: Performed By: #### C BC #### [facility] [address] [place] [address] Dr. Mando Reyes Hematocrit (Bld) [Volume fraction] 42.4 % Normal 36.0-48.0 [facility] Comment on above: Performed By: #### C BC #### [facility] [address] [place] [address] Dr. Mando Reyes Hemoglobin (Bld) [Mass/Vol] 14.3 g/dL Normal 12.0-16.0 [facility] Comment on above: Performed By: #### C BC #### [facility] [address] [place] [address] Dr. Mando Reyes IG # 0.04 10e3/ul Critically high 0.00-0.03 [facility] Comment on above: Performed By: #### C BC #### [facility] [address] [place] [address] Dr. Mando Reyes IG % 0.4 % Normal 0.0-0.5 [facility] Comment on above: Performed By: #### C BC #### [facility] [address] [place] [address] Dr. Mando Reyes LYMPH # 2.9 103/ul Normal 1.2-3.8 [facility] Comment on above: Performed By: #### C BC #### [facility] [address] [place] [address] Dr. Mando Reyes Lymphocytes/100 WBC (Bld) 28.2 % Normal 20.5-60.0 [facility] Comment on above: Performed By: #### C BC #### [facility] [address] [place] [address] Dr. Mando Reyes MANUAL DIFF REQ NO Normal [facility] Comment on above: Performed By: #### C BC #### [facility] [address] [place] [address] Dr. Mando Reyes MCH (RBC) [Entitic mass] 31.7 pg Normal 26.7-34.0 [facility] Comment on above: Performed By: #### C BC #### [facility] [address] [place] [address] Dr. Mando Reyes MCHC (RBC) [Mass/Vol] 33.7 g/dL Normal 29.9-35.2 [facility] Comment on above: Performed By: #### C BC #### [facility] [address] [place] [address] Dr. Mando Reyes MCV (RBC) [Entitic vol] 94.0 fL Normal 81.0-99.0 [facility] Comment on above: Performed By: #### C BC #### [facility] [address] [place] [address] Dr. Mando Reyes MONO # 0.9 103/ul Critically high 0.3-0.8 [facility] Comment on above: Performed By: #### C BC #### [facility] [address] [place] [address] Dr. Mando Reyes Monocytes/100 WBC (Bld) 8.9 % Normal 1.7-12.0 [facility] Comment on above: Performed By: #### C BC #### [facility] [address] [place] [address] Dr. Mando Reyes NEUT # 6.0 103/ul Normal 1.4-6.5 [facility] Comment on above: Performed By: #### C BC #### [facility] [address] [place] [address] Dr. Mando Reyes Neutrophils/100 WBC (Bld) 57.8 % Normal 43.0-75.0 [facility] Comment on above: Performed By: #### C BC #### [facility] [address] [place] [address] Dr. Mando Reyes Platelet mean volume (Bld) [Entitic vol] 10.0 fL Normal 9.5-13.5 [facility] Comment on above: Performed By: #### C BC #### [facility] [address] [place] [address] Dr. Mando Reyes PLT 277 103/ul Normal 150-450 [facility] Comment on above: Performed By: #### C BC #### [facility] [address] [place] [address] Dr. Mando Reyes RBC 4.51 106/ul Normal 4.20-5.40 [facility] Comment on above: Performed By: #### C BC #### [facility] [address] [place] [address] Dr. Mando Reyes WBC 10.4 103/ul Normal 4.0-11.0 [facility] Comment on above: Performed By: #### C BC #### [facility] [address] [place] [address] Dr. Mando Reyes PROF CHEM 8 (BAS METB)on Anion gap [Moles/Vol] 14.6 mmol/L Normal Th [facility] Comment on above: Performed By: #### B MP #### [facility] [address] [place] [address] Dr. Mando Reyes Calcium [Mass/Vol] 9.4 mg/dL Normal 8.5-10.1 [facility] Comment on above: Performed By: #### B MP #### [facility] [address] [place] [address] Dr. Mando Reyes Chloride [Moles/Vol] 103 mmol/L Normal 98-107 [facility] Comment on above: Performed By: #### B MP #### [facility] [address] [address] [address] Mando Reyes CO2 [Moles/Vol] 25.0 mmol/L Normal 21.0-32.0 [facility] Comment on above: Performed By: #### B MP #### [facility] [address] [place] [address] Dr. Mando Reyes Creatinine [Mass/Vol] 0.88 mg/dL Normal 0.55-1.02 [facility] Comment on above: Performed By: #### B MP #### [facility] [address] [place] [address] Dr. Mando Reyes EGFR-AF TAJIK >60 Normal >=60 [facility] Comment on above: Performed By: #### B MP #### [facility] [address] [place] [address] Dr. Mando Reyes EGFR-NON AF TAJIK >60 Normal >=60 [facility] Comment on above: Performed By: #### B MP #### [facility] [address] [place] [address] Dr. Mando Reyes Glucose [Mass/Vol] 106 mg/dL Normal 74-106 [facility] Comment on above: Performed By: #### B MP #### [facility] [address] [place] [address] Dr. Mando Reyes Potassium [Moles/Vol] 3.6 mmol/L Normal 3.5-5.1 [facility] Comment on above: Performed By: #### B MP #### [facility] [address] [place] [address] Dr. Mando Reyes Sodium [Moles/Vol] 139 mmol/L Normal 136-145 [facility] Comment on above: Performed By: #### B MP #### [facility] [address] [place], [place] [address] Dr. Mando Reyes Urea nitrogen [Mass/Vol] 8.0 mg/dL Normal 7.0-18.0 [facility] Comment on above: Performed By: #### B MP #### [facility] [address] [place], [place] [address] Dr. Mando Reyes Urea nitrogen/Creatinine [Mass ratio] 9.1 mg/mg Normal [facility] Comment on above: Performed By: #### B MP #### [facility] [id number] Mando Reyes Coding Summary.on 05-26-2022 Coding Summary. CD:[id number] G h0bWw+PGhlYWQ+DT8MFPJ eZ61liPPcfL2OF0zXYQ5W CXMFKVQNAK4ITH8ddRJ8Q KerI2XvhhYz GeafkXUjBC11YRa0HLM0w YjlWAsuaH1vkBRxS1z5Im WlBA51qZ55BSwsLVRqPeX 3LjZpbjsgbWFy S7owBgYrkZSjLpz+PHRhY mxlIHdpZHRoPScxMDAlJy UmiEgjZK3jPg6wDAMeFFA vbGxhcHNlOiBj z4iqUPZpRPtmTR7psYvzK 3EpuCB3CGErf9t8Bh68sR I+QJEdCZT8dFrmCVarb82 0KhGep6fmXVM5 xAYlLTkaGTU3V64qg6Q6Z ANnPSZgKDT4aMD0zK2jxL xxjsxwD8AjgTCkQtI2DIO 8rHHblV5tvWwv gaxnqG1eAnv+D19CDQ4FU CRXYL7ZJvb3P9DzGwcpmD I+FF54LBDiXI52uKZqpVC mu5svjDy7ShBb MBCaLTI5kYcxNUemb5FxY NQaD54khSFle2C0YQApoZ dioOOvPfNhiZI8qS6eUYx myvhgj2kdvqwt Jjmrd6zooi28bE51U58wO VuwNIQeSPM8YYNrQHUxpX xrbv6ifN7mCw0+PFela9v lw1smeUm0BnOj GUZqwtAgiTlqTGN9t6ZaN p83U4BoyMinx1AxNgg1fw 40lGXlb4S3lCM1PUohEHZ mgI9rSQiwFmS8 PCCrBuIxwR50nRXmRWaaD l7cjNhsnMnyDS4rBHDovd ciPCTjpL8cAAFlrYFkpRb hZT0mNKQohybi x188WsFfQZH0XRAjxJHoB 9YwgB8vJgOyFGDkTWXdD2 XpdJDeHIetI785FDnuCyL 4RDQllzNxZ5Ee LJUfyLlfNgC6j2U4Il1Zy 7ApwpynTYY6BDeiLVP6Kp YhVkPkYjR2J9HjTgv0CMJ jgBavVI0cD0Jk VXYhhdzjdpcnvQE1LDVlW ZOgzH25bMJmSDypOr7lf4 C2q785ZGLuVLZjmW10Xj2 udDogMTBwdCBU zD3ckdosq2sotpzhEzPqD JWfGMf9KZv6PXUdlHcwDo QlHWA9UtD1RCG1gFAuzH6 ilJsetkgvoH8f Oyc+U16mlG4vAFA0INU5b wnoDSQrahBhUR51CD18I9 RyPjwvdGFibGU+PGRpdiB rzBcdPI3vKpBx n9hmq5ZeMRmcF8DoJEDaY DyqQlx5HWUrPHW6iBN0dP 3aJDVjKYzfm0O1tAM5E0I uhnEqwh0bn1df NXMtJHjbF17rvIIly0N1J BZibGN9MMJduFteBwCtyW 93Oyc+QSPedUgiz1LrBeu vk7qkz1ydaRo6 HrMhGTFjpkGjnCojSYK3n 0ChLq33Y74zDPlkZHIdIQ BsUBOxVPCfcPhxcw9txC6 wIi8+PGNvbCB3 cMU8lE7yLACtGsF9NSkhZ 599VcZbvLJbTwikw9frp1 mafRe5DaSeJSWffpYkrGg fYFG4j0QcSg27 F76lXDonPKYxQKSeRRAeU NVrgQqrai3fhZ2eUp9+PC 7wo2dxzs21uT49uQY+PHR rZAC9iJrfJAct PPDreI7dHMnwWqZ6OOKyW fZzvK45yBLuCZboLs6jdG qxzDlzXR5dVNDakvloa95 7FbScf1wrCTWr eCOvZYawSNT6H88hr7X0H KWjUTFrIYN1fNN4rV8uvQ lnbjogbGVmdDsgdmVydGl yEPzjJLlqB589 IHRvcDsnPlBhdGllbnQgT rTsQXq3Z6HxYkf5CCAulE ayUI1btHIkLYgjCr7ydMn jkHbtWS7tDSFr pfhzr751OxEei9ubSPMet QMmNXyvSJY3B41aq1C7VU ZkOWOfHRO4tRW1oI1esWd nbjogbGVmdDsg ylYnlGobCLnlYFmmF847Z HRvcDsnPkJpcnRoIERhdG I8UG80LW58uOBjj1O7zJQ 1K4QzVMXhmahf ywunkUV1MTIhKJUnrX06O x8gsElrKm4yAMQqPNV5QN KvkUXlF5ZsuM2lGxIvTYF bQJTvH9MszHPi SCxvU350XXrxUvP8CIVza nBzO6EgRMDozHjbAtC5m8 T1Qg4SO3X4UB68GI98eSJ iz5E0xQB6G6Dw PHCcwwuermqxsDG5WMRkK OOzmW41Ft0bjGykHi4bFI VmETU7BQSzsBOuF0IiiX7 yOiAjMDAwMDAw I5HtuFDfHFzlG795BJilU jS0VXYissKtG4IwPGRnfR tqMzD3u5V9Dy6MXPk0GU7 8BK67zFXwz4H4 hOD6H5JkUEYnghpizdqmo MY8KFKjNDBbwS92Ia0wzW ijHh4rHIKgRRE1VNMfiQM sG2RhyG2fUsVt QMPoNFTrK4VndPObVYkkQ 593WFmpPdH4SIYnxyHmL9 KaDXCkxTssKgC6x9W9Qz9 WTRKiCH71BMT0 zDV8RA74QD94Q5IyRzvqx GFibGU+PHRhYmxlIHdpZH RoPScxMDAlJyBzdHlsZT0 jJu5qGOIeFGWt pNxjeIBhKfEmt6ywNKCuL LqdIN8zgPigG7LsnPN3RP Yqj6u1Ra14H03cP0CmjFH +DZEpkKM1cST8 qJ6mNuGiQwJ3RFtfG101R yZzaFOmCemwo8wse9zwbW f1TtH7HNQzxbRrcTjvCQN 5t0WfBz96O37c IHdpZHRoPSIxNSUiIHZhb Avmsx9reW2iUe7+PGNvbC B3sGX2pI2rXpAcYsQ6KVu pV466FfXtdYEi Toygl6ubx5stvXr7OkKsJ UNvbsWldQibXIM8y8JgLs 75P1HkhIkxj4XeMux5sc4 0qXEzl1Y7nYO6 F3RzJRXibfhmlJUrnQotL F9rZUJkweugQTZqeU1dQI LoS2r7MvGuBpM5SKevB9F kqfQ9RIAnvOZu EXsiKWA8U79jt7X4GCOkP SWvSKF4gSG2oS7vjAmvut ogbGVmdDsgdmVydGljYWw nKVvjA126IMEp wSvcPDCuxH3tBSWxgHTpx KgpBK6eUKZwzrodHiLHHG JTFRXuNTKPV46ZWCACKK8 1BQ97dJXcp5N3 nLU9J2FzHQEefrjyreoty QQ1AKFgWNLacP64bZHgOP enYv0ea2E9w873DWTgFJD izI85Oc9amTon TNTbpOELbA3rdbtmy9hwc izpXwRmTRTtNJk3UHp9ML HuhMepTyRsRZY2YqB8SIE 8fVJrvH5kbQop rjkinV4iCsn+MTIvMDgvM Xy5WHgscSM+SWXnOSG6mU njAGkaUMVnrV3qKIIzP3d 0FxSsXqC6HKvu V1KaHEJpayjlPq85jA0hO iSlNkZ5ANsnP7NbpcA6CD TldIWkOEmcTHF5K51cl2H 6FHXtLACnLAX1 bBV0sQ9obQevhjxvhPVww DsgdmVydGljYWwtYWxpZ2 11ZBMylYiiYqJ2VWumAUV xNY63TL60rRAr e9T5eZY1S0JeZDUgnsegk ajclLD0KFMiUDPyaU49gR SbVXrzJb4fa7A5d938TBO dFCTboW83Xy3x aSeePKRtrDEAuB9ewkoxh 0vdkirgZjBoHDXyZYc3TV r4CSUngDuiGmGaUAN6HqI 3CFM4kBUtdU5l iIefpftsuQ6gXbb+RmVtY PvcEZ32VZ97eKGui8A2mB O5C9HdSWTbzhimbjhoeET 7WJHfNMHboB33 tAGlCIfbQs7xr2N3b113T YRsQKLmhU35Yo0deWceNP BmfEPTiB9ssselj3ispqj gIzAwMDAwMDt0 VPo7XHZngCkmXnHwOVF6I mK2KJT4sUWlxU5kyKymyj lnsL8lGiw+Q3J9iFT8aCO udDwvdGQ+PC90 qk92L3CmLlhoRiv1MMQwL WP7nEK1oL8ySVLdYVrwc4 Z1kEY2Z9QqgnWthq2si3f nOYZnASzsX85n aYHit3D7DCTsgAY5XILwo OaxXlQcdT60Heh+PGNvbG jpz3VoQaiai0wxo0mpyNc 9IjMwJSIgdmFs mConIPV1o1XqUa82P39yV HdpZHRoPSIzMCUiIHZhbG kntn2bxP0zLm7+PGNvbCB 1tZD2tK5eJqUi FdH7WVhdI144BoSgeMTxK uukb4sln5bipDw4TbWpIQ UltmSjkXkeWZU5r8QkNl1 6B0UpaIqjk8Zy Zov1ri30mZJnc4T9pVM5T 3BhZGRpbmctbGVmdDogMC 2qZJTpyvrnKQExcN2qGHG sR8p0OmZgCsP2 ZXssX0OhvrZ7QAWwwKIdY BJpdEDJfO4mgdrxx6wgsp osKsGeHGImPCb8PDy0GHK saWduOiBsZWZ0 EeI8BCE3fRHgzO7hfRubc iutuX6mWnp+ZXs9r2twgB WnME2moGR6HB50XJ42uSM cs6Q9pWO8A2Jz YLUblndupwuvmZU0LRPkM PDjxI53Hw7tmZswXn8dPF WaRHC4RROnsPHnE4FovA9 yOiAjMDAwMDAw H0HizHFbRJfpK239SNkmQ sS8WGAbitPqG1FyBQQxgC gsPjX0k4L3Gm4CSY62EK0 1IW03jZUqf8I3 lGL9X6FlFUKqlowqsdlfw TJ7WCIbVEYeuV37St5gqV uuQh5eYEOrDIJ3BMYygYM nU8JvmK4xItUp DYOpTHMoU9JgsQYrKCmeO 862KPnlQgN9EOTzxrTvH9 HnKUXunDdkXiP4y6O5Ta6 XKp63KC01EN36 dGKfx6K2hJB2U5NwINFpn gcuqtuxdXI9QRIxBDFnyB 93Nc6zrPdfLa0fHAZjWKS 5TKGnyQQvB4Nl aL5wOxYyHQItIXAvC1Wbg BWoJFsmZ514LDkcDxX8IA XvpkEfX3HxYYQbyJagPlW 2i9R5Rm0OAHxo tqn8U7LjTjenfIF+PC90Y HXlQL78rIKaaXZyh6lslH x0UgOzSTOrPUC3pOgnNRu wo1YqIWHuT55s bGFw (more content not included)... Normal [facility] Consent for Treatmenton 05-07 Consent for Treatment [id number] [facility] MRI Spine Lumbar w/o Contras ton [...] REYMUNDO Technologist: KARRIE Technical Comments None Normal [facility] RAD - MRI Screening Formon 0 05-20-2022 RAD - MRI Screening Form [id number] 1.00CD:[address] [facility] Physician Orderon 05-19-2022 Physician Order [id number] .00CD:[address] [facility] T4, T3U, FTI LABCORPon 05-15 Free Thyroxine Index 1.8 Normal 1.2-4.9 [facility] Comment on above: Performed By: #### T HYLC #### [facility] [address] [address] [address] Mando Reyes T3 Uptake 27 % Normal 24-39 [facility] Comment on above: Performed By: #### T HYLC #### [facility] [address] [address] [address] Mando Reyes T4 [Mass/Vol] 6.6 ug/dL Normal 4.5-12.0 [facility] Comment on above: Performed By: #### T HYLC #### [facility] [address] [address] [address] Mando Reyes CBC AUTO DIFFon 05-14-2022 BASO # 0.1 103/ul Normal 0.0-0.1 [facility] Comment on above: Performed By: #### C BC #### [facility] [address] [address] [address] Mando Reyes Basophils/100 WBC (Bld) 0.8 % Normal 0.2-2.0 [facility] Comment on above: Performed By: #### C BC #### [facility] [address] [place] [address] Dr. Mando Reyes EO # 0.2 103/ul Normal 0.0-0.7 [facility] Comment on above: Performed By: #### C BC #### [facility] [address] [place] [address] Dr. Mando Reyes Eosinophils/100 WBC (Bld) 1.8 % Normal 0.9-7.0 [facility] Comment on above: Performed By: #### C BC #### [facility] [address] [place] [address] Dr. Mando Reyes Erythrocyte distribution width (RBC) [Ratio] 14.0 % Normal 11.0-15.0 [facility] Comment on above: Performed By: #### C BC #### [facility] [address] [place] [address] Dr. Mando Reyes Hematocrit (Bld) [Volume fraction] 42.9 % Normal 36.0-48.0 [facility] Comment on above: Performed By: #### C BC #### [facility] [address] [place] [address] Dr. Mando Reyes Hemoglobin (Bld) [Mass/Vol] 14.5 g/dL Normal 12.0-16.0 [facility] Comment on above: Performed By: #### C BC #### [facility] [address] [place] [address] Dr. Mando Reyes IG # 0.05 10e3/ul Critically high 0.00-0.03 [facility] Comment on above: Performed By: #### C BC #### [facility] [address] [place] [address] Dr. Mando Reyes IG % 0.6 % Critically high 0.0-0.5 [facility] Comment on above: Performed By: #### C BC #### [facility] [address] [place] [address] Dr. Mando Reyes LYMPH # 2.4 103/ul Normal 1.2-3.8 [facility] Comment on above: Performed By: #### C BC #### [facility] [address] [place] [address] Dr. Mando Reyes Lymphocytes/100 WBC (Bld) 26.9 % Normal 20.5-60.0 [facility] Comment on above: Performed By: #### C BC #### [facility] [address] [place] [address] Dr. Mando Reyes MANUAL DIFF REQ NO Normal [facility] Comment on above: Performed By: #### C BC #### [facility] [address] [place] [address] Dr. Mando Reyes MCH (RBC) [Entitic mass] 32.4 pg Normal 26.7-34.0 [facility] Comment on above: Performed By: #### C BC #### [facility] [address] [place] [address] Dr. Mando Reyes MCHC (RBC) [Mass/Vol] 33.8 g/dL Normal 29.9-35.2 [facility] Comment on above: Performed By: #### C BC #### [facility] [address] [place] [address] Dr. Mando Reyes MCV (RBC) [Entitic vol] 95.8 fL Normal 81.0-99.0 [facility] Comment on above: Performed By: #### C BC #### [facility] [address] [place] [address] Dr. Mando Reyes MONO # 0.7 103/ul Normal 0.3-0.8 [facility] Comment on above: Performed By: #### C BC #### [facility] [address] [place] [address] Dr. Mando Reyes Monocytes/100 WBC (Bld) 8.5 % Normal 1.7-12.0 [facility] Comment on above: Performed By: #### C BC #### [facility] [address] [place] [address] Dr. Mando Reyes NEUT # 5.4 103/ul Normal 1.4-6.5 [facility] Comment on above: Performed By: #### C BC #### [facility] [address] [place] [address] Dr. Mando Reyes Neutrophils/100 WBC (Bld) 61.4 % Normal 43.0-75.0 [facility] Comment on above: Performed By: #### C BC #### [facility] [address] [place] [address] Dr. Mando Reyes Platelet mean volume (Bld) [Entitic vol] 9.8 fL Normal 9.5-13.5 [facility] Comment on above: Performed By: #### C BC #### [facility] [address] [place] [address] Dr. Mando Reyes PLT 289 103/ul Normal 150-450 [facility] Comment on above: Performed By: #### C BC #### [facility] [address] [place] [address] Dr. Manod Reyes RBC 4.48 106/ul Normal 4.20-5.40 [facility] Comment on above: Performed By: #### C BC #### [facility] [address] [place] [address] Dr. Mando Reyes WBC 8.7 103/ul Normal 4.0-11.0 [facility] Comment on above: Performed By: #### C BC #### [facility] [address] [place] [address] Dr. Mando Reyes GLYCOHEMOGLOBIN A1Con 2021 ADA RECOMMENDATION SEE BELOW Normal [facility] Comment on above: Result Comment: ADA RECOMMENDED LIMIT 4.0 - 6.0 ADA THERAPEUTIC TARGET < 7.0 ACTION SUGGESTED > 7.0 Performed By: #### A 1C #### [facility] [address] [place] [address] Dr. Mando Reyes Glucose [Mass/Vol] 120 mg/dL Normal [facility] Comment on above: Performed By: #### A 1C #### [facility] [address] [place] [address] Dr. Mando Reyes HbA1c (Bld) [Mass fraction] 5.8 % Normal 4.5-6.2 [facility] Comment on above: Performed By: #### A 1C #### [facility] [address] [place] [address] Dr. Mando Reyes IRONon 05-14-2022 Iron [Mass/Vol] 64.0 ug/dL Normal 50.0-170.0 [facility] Comment on above: Performed By: #### I NELDA #### [facility] [address] [place] [address] Dr. Mando Reyes PROF 14(COMP METB)on 022 Albumin [Mass/Vol] 3.5 g/dL Normal 3.4-5.0 [facility] Comment on above: Performed By: #### T DEL, CMP #### [facility] [address] [place] [address] Dr. Mando Reyes Albumin/Globulin [Mass ratio] 0.9 {ratio} Normal [facility] Comment on above: Performed By: #### T DEL, CMP #### [facility] [address] [place] [address] Dr. Mando Reyes ALP [Catalytic activity/Vol] 102 U/L Normal 46-116 [facility] Comment on above: Performed By: #### T SH, CMP #### [facility] [address] [place] [address] Dr. Mando Reyes ALT [Catalytic activity/Vol] 30 U/L Normal 14-59 [facility] Comment on above: Performed By: #### T SH, CMP #### [facility] [address] [place] [address] Dr. Mando Reyes Anion gap [Moles/Vol] 13.8 mmol/L Normal [facility] Comment on above: Performed By: #### T SH, CMP #### [facility] [address] [address] [address] Mando Reyes AST [Catalytic activity/Vol] 17 U/L Normal 15-37 [facility] Comment on above: Performed By: #### T SH, CMP #### [facility] [address] [address] [address] Mando Reyes Bilirubin [Mass/Vol] 0.2 mg/dL Normal 0.2-1.0 [facility] Comment on above: Performed By: #### T SH, CMP #### [facility] [address] [address] [address] Madno Reyes Calcium [Mass/Vol] 9.0 mg/dL Normal 8.5-10.1 [facility] Comment on above: Performed By: #### T SH, CMP #### [facility] [address] [place] [address] Dr. Mando Reyes Chloride [Moles/Vol] 105 mmol/L Normal 98-107 [facility] Comment on above: Performed By: #### T SH, CMP #### [facility] [address] [place] [address] Dr. Mando Reyes CO2 [Moles/Vol] 25.9 mmol/L Normal 21.0-32.0 [facility] Comment on above: Performed By: #### T SH, CMP #### [facility] [address] [place] [address] Dr. Mando Reyes Creatinine [Mass/Vol] 0.84 mg/dL Normal 0.55-1.02 [facility] Comment on above: Performed By: #### T SH, CMP #### [facility] [address] [place] [address] Dr. Mando Reyes EGFR-AF TAJIK >60 Normal >=60 [facility] Comment on above: Performed By: #### T SH, CMP #### [facility] [address] [address] [address] Mando Reyes EGFR-NON AF TAJIK >60 Normal >=60 [facility] Comment on above: Performed By: #### T SH, CMP #### [facility] [address] [address] [address] Mando Reyes Globulin (S) [Mass/Vol] 4.0 g/dL Normal [facility] Comment on above: Performed By: #### T SH, CMP #### [facility] [address] [address] [address] Mando Reyes Glucose [Mass/Vol] 117 mg/dL Critically high 74-106 [facility] Comment on above: Performed By: #### T SH, CMP #### [facility] [address] [address] [address] Mando Reyes Potassium [Moles/Vol] 4.7 mmol/L Normal 3.5-5.1 [facility] Comment on above: Performed By: #### T SH, CMP #### [facility] [address] [place] [address] Dr. Mando Reyes Protein [Mass/Vol] 7.5 g/dL Normal 6.4-8.2 [facility] Comment on above: Performed By: #### T SH, CMP #### [facility] [address] [place] [address] Dr. Mando Reyes Sodium [Moles/Vol] 140 mmol/L Normal 136-145 [facility] Comment on above: Performed By: #### T SH, CMP #### [facility] [address] [place] [address] Dr. Mando Reyes Urea nitrogen [Mass/Vol] 6.0 mg/dL Critically low 7.0-18.0 [facility] Comment on above: Performed By: #### T SH, CMP #### [facility] [address] [place] [address] Dr. Mando Reyes Urea nitrogen/Creatinine [Mass ratio] 7.1 mg/mg Normal [facility] Comment on above: Performed By: #### T SH, CMP #### [facility] [address] [place] [address] Dr. Mando Reyes TSHon 05-14-2022 TSH 0.777 uIU/mL Normal 0.358-3.740 [facility] Comment on above: Performed By: #### T , [facility] #### [facility] [address] [place] [address] Dr. Mando Reyes XR CSPINE MIN 4 [...] by: ARIK BERKOWITZ Date: 2022-05-05 11:21 Normal [facility] XR LSPINE MIN 4 VIEWSon [...] by: ARIK BERKOWITZ Date: 2022-05-05 11:23 Normal [facility] CNOVon 12-15-2021 CNOV Office Visit (CDISMN ) NEVAEH GUO ([id number]) 1975 F Date Time Provider Department 12/15/21 11:00 AM [facility] During your visit today, we recorded the following information about you: Lindsey Grant, PhD 12/15/2021 8:42 PM Signed [facility] Vestibular Test Battery Report Name: Nevaeh Guo CCF#: [id number] Date of Service: 12/15/2021 Date of : 1975 Age: [age] year old Referred by: Justyn Melendez MD [address] [facility] [address] And is a patient of Justyn Melendez MD, MD Justyn Melendez MD [address] [place] [address] Referred for: Evaluation of the cause of disorder of hearing, tinnitus, or balance. Referral documented: In an order in [facility] Pretest Instructions: Patient complied with all pretest [...] recent hearing tests sent for futher review. Nevaeh Guo is a 46 year old female who presents with dizziness described as feeling that the room is spinning, feeling that I am spinning in a sleetmute, feeling as though I could pass out [...] date. RECOMMENDATIONS: * Continue medical follow-up with Justyn Melendez MD * Patient asked to send [...] sleep sche (more content not included)... Normal [facility] Vital Signs Date Time Vital Sign Value Performing Clinician Facility 04-21-2024 07:30-0400 Body temperature 97.8 [degF] MD Justyn Melendez Work Phone: [facility] 04-21-2024 07:30-0400 Diastolic blood pressure 61 mm[Hg] MD Justyn Melendez Work Phone: [facility] 04-21-2024 07:30-0400 Heart rate 80 /min MD Justyn Melendez Work Phone: [facility] 04-21-2024 07:30-0400 SaO2% (BldA) [Mass fraction] 99 % MD Justyn Melendez Work Phone: [facility] 04-21-2024 07:30-0400 Systolic blood pressure 92 mm[Hg] MD Justyn Melendez Work Phone: [facility] 04-20-2024 19:40-0400 Respiratory rate 18 /min MD Justyn Melendez Work Phone: [facility] 04-18-2024 15:00-0400 Body height 157.48 cm MD Justyn Melendez Work Phone: [facility] 04-17-2024 23:17-0400 Body weight 71.66 kg MD Justyn Melendez Work Phone: [facility] 10-24-2023 11:47-0500 Body height 162.56 cm [facility] 10-24-2023 11:47-0500 Body mass index (BMI) [Ratio] 30 kg/m2 [facility] 10-24-2023 11:47-0500 Body temperature 99 [degF] [facility] 10-24-2023 11:47-0500 Body weight 79.37 kg [facility] 10-24-2023 11:47-0500 Heart rate 94 /min [facility] 10-24-2023 11:47-0500 Respiratory rate 16 /min [facility] 10-24-2023 11:47-0500 SaO2% (BldA) [Mass fraction] 99 % [facility] 07-05-2023 17:30-0400 Body temperature 97 [degF] Hugo Larios DMD, MD Work Phone: [facility] 07-05-2023 17:30-0400 Diastolic blood pressure 93 mm[Hg] Hugo Larios DMD, MD Work Phone: [facility] 07-05-2023 17:30-0400 Heart rate 85 /min Hugo Larios DMD, MD Work Phone: [facility] 07-05-2023 17:30-0400 Respiratory rate 16 /min Hugo Larios DMD, MD Work Phone: [facility] 07-05-2023 17:30-0400 SaO2% (BldA) [Mass fraction] 97 % Hugo Larios DMD, MD Work Phone: [facility] 07-05-2023 17:30-0400 Systolic blood pressure 124 mm[Hg] Hugo Larios DMD, MD Work Phone: [facility] 07-05-2023 12:49-0400 Body height 162.6 cm Hugo Larios DMD, MD Work Phone: [facility] 07-05-2023 12:49-0400 Body mass index (BMI) [Ratio] 31.93 kg/m2 Hugo Larios DMD, MD Work Phone: [facility] 07-05-2023 12:49-0400 Body weight 84.37 kg Hugo Larios DMD, MD Work Phone: [facility] 06-30-2023 12:45-0400 Body height 162.6 cm Christine Krishnan VARSITY BASEBALL COACH-DENTAL HYGIENIST Work Phone: [facility] Comment on above: reported by patient 06-30-2023 12:45-0400 Body mass index (BMI) [Ratio] 31.93 kg/m2 Christine Krishnan VARSITY BASEBALL COACH-DENTAL HYGIENIST Work Phone: [facility] 06-30-2023 12:45-0400 Body weight 84.37 kg Christine Krishnan VARSITY BASEBALL COACH-DENTAL HYGIENIST Work Phone: [facility] 05-08-2023 10:15-0400 Body height 162.56 cm Justine Saunders Other [employer] Other 05-08-2023 10:15-0400 Body mass index (BMI) [Ratio] 33.95 kg/m2 Justine Saunders Other [employer] Other 05-08-2023 10:15-0400 Body temperature 98.4 [degF] Justine Saunders Other [employer] Other 05-08-2023 10:15-0400 Body weight 89.72 kg Justine Saunders Other [employer] Other 05-08-2023 10:15-0400 Diastolic blood pressure 91 mm[Hg] Justine Saunders Other [employer] Other 05-08-2023 10:15-0400 SaO2% (BldA) [Mass fraction] 98 % Justine Saunders Other [employer] Other 05-08-2023 10:15-0400 Systolic blood pressure 148 mm[Hg] Justine Saunders Other [employer] Other Encounters Encounter Date Encounter Type Care Provider Facility Start: 04-24-2024 End: 04-24-2024 ambulatory LINCOLN CHILD [facility] Start: 04-24-2024 End: 04-24-2024 ambulatory CLIFF Licona CLARIBEL [facility] Start: 04-18-2024 Non-patient / Non-visit MD Fredi Melendez Work Phone: [facility] Work Phone: Start: 04-17-2024 End: 04-21-2024 Evaluation and management of inpatient Charli Valdez Facility:[facility] Start: 04-10-2024 End: 04-10-2024 ambulatory LINCOLNCORINA GUPTA MATEUSZ [facility] Start: 03-27-2024 End: 03-27-2024 ambulatory CLIFF Licona [facility] Start: 03-24-2024 End: 03-24-2024 ambulatory CLIFF Licona [facility] Start: 03-20-2024 End: 03-20-2024 ambulatory CLIFF Licona [facility] Start: 03-06-2024 End: 03-06-2024 ambulatory LINCOLN CAVAZOSLeigha [facility] Start: 02-04-2024 End: 02-04-2024 ambulatory CLIFF Licona [facility] Start: 01-24-2024 End: 01-24-2024 ambulatory LINCOLN CAVAZOSLeigha [facility] Start: 01-21-2024 End: 01-21-2024 ambulatory CLIFF Licona [facility] Start: 01-17-2024 End: 01-17-2024 ambulatory ANGELICA Ramirez BRANDI Not Available Start: 01-03-2024 End: 01-03-2024 ambulatory CLIFF Licona [facility] Start: 12-20-2023 End: 12-20-2023 ambulatory LINCOLN ALONSO CAVAZOSLeigha [facility] Start: 12-07-2023 Orders Only Lincoln hampton VARSITY BASEBALL COACH-DENTAL HYGIENIST [facility] Start: 11-25-2023 End: 11-25-2023 ambulatory LINCOLN GUPTA MATEUSZ [facility] Start: 11-23-2023 Orders Only Lincoln hampton VARSITY BASEBALL COACH-DENTAL HYGIENIST Work Phone: [facility] Start: 11-15-2023 End: 11-15-2023 ambulatory LINCOLN GUPTA MATEUSZ [facility] Start: 11-09-2023 Orders Only Lincoln hampton VARSITY BASEBALL COACH-DENTAL HYGIENIST Work Phone: [facility] Start: 10-24-2023 End: 10-24-2023 ambulatory [facility] Work Phone: Start: 10-24-2023 End: 10-24-2023 Patient encounter procedure [facility] Work Phone: Start: 09-13-2023 End: 09-13-2023 ambulatory LINCOLN GUPTA [facility] Start: 07-14-2023 End: 07-14-2023 Patient encounter procedure Hugo Larios DMD, MD Work Phone: [facility] Oral Surgery Comment on above: Post-operative state (Primary Dx) Start: 07-14-2023 End: 07-19-2023 ambulatory UNKNOWN PROVIDER Facility:[facility] Start: 07-05-2023 End: 07-06-2023 ambulatory [facility]ARIOS [facility] Start: 07-05-2023 End: 07-05-2023 Subsequent hospital visit by physician Hugo Larios DMD, MD Work Phone: [facility] Comment on above: Caries (Primary Dx); Torus mandibularis Start: 06-30-2023 ambulatory UNKNOWN PROVIDER Facili ty:[facility] Start: 06-30-2023 End: 06-30-2023 Telephone encounter Christine Ariella COLEMAN Work Phone: [facility] Pre Surgical Evaluation Comment on above: Arrived Start: 06-21-2023 Letter encounter Hugo Larios DMD, MD Work Phone: [facility] Start: 06-18-2023 End: 06-21-2023 ambulatory UNKNOWN PROVIDER [facility] Start: 06-18-2023 End: 06-18-2023 Patient encounter procedure Hugo Larios DMD, MD Work Phone: [facility] Oral Surgery Comment on above: Caries (Primary Dx) Start: 05-08-2023 Office outpatient ne w 10 minutes Justine Saunders [facility] Start: 05-08-2023 End: 05-08-2023 ambulatory Justine Nicky [employer] Other Start: 01-28-2023 End: 01-28-2023 ambulatory DIO MERCADO Facility: Start: 06-11-2022 Transcribe Orders Nanci Byrne [facility] Comment on above: Thoracic back pain, unspecified back pain laterality, unspecified chronicity (Primary Dx) Start: 05-20-2022 End: 05-21-2022 ambulatory OSAISHA Hercules MALAK Facility:[facility] Start: 05-20-2022 End: 05-20-2022 Patient encounter procedure OSAISHA LARSENAK [facility] Start: 05-14-2022 End: 05-15-[address] JUSTYN MELENDEZ . Facility: Start: 05-05-2022 End: 05-06-[address] ARIK BERKOWITZ Facility: Start: 12-15-2021 End: 12-15-2021 Patient encounter procedure Lindsey Grant PhD Work Phone: Audiology Comment on above: Dizziness (Primary D x); Meniere's disease of right ear; Migraine variant Procedures Date Procedure Procedure Detail Performing Clinician Start: 01-03-2024 Follow-up visit Follow-up CLIFF SANFORD Start: 10-24-2023 COVID/Influenza Anti gen (POC) Start: 10-24-2023 Quick Strep (POC) Start: 09-16-2022 Adult depression scr eening assessment Lincoln Child APRN-DENTAL HYGIENIST Work Phone: Appendectomy OSAMA MALAK section OSAMA MALAK Cholecystectomy OSAMA MALAK Decompression of med cathy nerve OSAMA MALAK Hysterectomy OSAMA MALAK Inguinal herniorrhaphy OSAMA MALAK Plan of Treatment Date Care Activity Detail Author Start: 2025 Shingles (RZV) Vacci ne (1 of 2) Shingles (RZV) Vaccine (1 of [address]) [facility] Start: 11-24-2024 Tobacco Screening Tobacco Screening [facility] Start: 11-14-2024 Tobacco Screening Tobacco Screening [facility] Start: 09-13-2024 Tobacco Screening Tobacco Screening [facility] Start: 05-07-2024 Influenza vaccination Influenza Vacc ine [facility] Start: 04-21-2024 [facility] Start: 04-17-2024 Referral to Faculty Administrator [facility] Start: 04-17-2024 Hospital admission [facility] Start: 03-16-2024 Tobacco Counseling Tobacco Counselin g [facility] Start: 09-16-2023 Adult BMI Screening Adult BMI Screen ing [facility] Start: 09-16-2023 Depression Screening Depression Scre ening [facility] Start: 07-14-2023 End: 07-14-2023 Patient encounter procedure [facility] Oral Surgery Start: 07-05-2023 End: 07-05-2023 Admission to same day surgery center [facility] Comment on above: EXTRACTION, TOOTH Start: 07-05-2023 End: 07-05-2023 EXTRACTION, TOOTH [facility] Start: 07-05-2023 Subsequent hospital visit by physician [facility] Start: 06-30-2023 End: 06-30-2023 Telephone encounter 06/30/2023 1:45 PM EDT Telephone [facility] Pre Surgical Evaluation [address] [place] [address] Christine Krishnan, VARSITY BASEBALL COACH-DENTAL HYGIENIST [address] [place] [address] [facility] Pre Surgical Evaluation Start: 05-07-2023 COVID-19 Vaccine ( season) COVID-19 Vaccine ( season) [facility] Start: 05-07-2023 Influenza vaccination M [facility] Start: 07-06-2022 End: 07-06-2022 Admission to same day surgery center 07/06/2022 Evaluation Spine Surgery Justyn Melendez MD [address] [facility] [address] [place] [address] Peace Nelson, DENTAL HYGIENIST [address] [place] [address] [facility] [facility] Start: 05-07-2022 Influenza vaccination [facility] Start: 01-25-2021 COVID-19 VACCINE (2 - Pfizer 3-dose series) COVID-19 VACCINE (2 - Pfizer 3-dose series) [facility] Start: 2020 Cholesterol [Mass/volume] in Serum or Plasma Cholesterol [facility] Start: 2020 COLOGUARD (FIT-DNA) COLOGUARD (FIT-D NA) [facility] Start: 2020 Colonoscopy COLONOSCOPY [facility] Start: 2020 COLORECTAL CANCER SCREENING COLORECTAL CANCER SCREENING [facility] Start: [address] COLONOGRAPHY [facility] Start: 2020 DIABETES SCREEN DIABETES SCREEN [facility] Start: 2020 FECAL OCCULT BLOOD FECAL OCCULT BLOO D [facility] Start: 2020 LIPID SCREEN LIPID SCREEN [facility] Start: 2020 Screening for malign ant neoplasm of colon [facility] Start: 2020 SIGMOIDOSCOPY SIGMOIDOSCOPY [facility] Start: 2015 Mammography MAMMOGRAM [facility] Start: 2015 Screening for malign ant neoplasm of breast Mammography [facility] Start: 07-24-2015 Pneumococcal vaccination Pneumococcal Vaccine(s) (2 - PPSV23 or PCV20) [facility] Start: 2005 HPV TESTING HPV TESTING [facility] Start: 1996 PAP TESTING PAP TESTING [facility] Start: 1996 Screening for malign ant neoplasm of cervix Pap Smear [facility] Start: 1994 DTaP,Tdap and Td Vaccines (1 - Tdap) DTaP,Tdap and Td Vaccines (1 - Tdap) [facility] Start: 1994 Urine microalbumin profile DTAP,TDAP,TD (1 - Tdap) [facility] Start: 1993 HEPATITIS C SCREENING HEPATITIS C SC YESSENIA [facility] Start: 1993 [facility] Start: 1993 HIV SCREENING HIV SCREENING [facility] Start: 1993 Tetanus + diphtheria + acellular pertussis vaccine (product) Tdap Booster [facility] Start: 1990 HIV screening [facility] Start: 1987 Depression screening using PHQ-9 (Patient Health Questionnaire 9) score Depression Screening (PHQ-2/9) [facility] Start: 1978 History and physical examination, annual for health maintenance Wellness Visit [facility] Start: 02-12-1976 COVID-19 Vaccine (#1) COVID-19 Vacci ne (#1) [facility] Start: 1975 Screening for malign ant neoplasm of cervix Pap Smear [facility] Start: 1975 Screening for malign ant neoplasm of colon [facility] Start: 1975 Tetanus vaccination Tetanus: Every 1 0yrs [facility] alveoloplasty in conjunction with extractions - one to three teeth or tooth spaces, per quadrant ALVEOLOPLASTY W/EXTRACT 1-3 Procedures Routine Caries Ordered: 07/05/[address] [facility] Comment on above: Ordered: 07/05/2023 Excision torus mandibularis EXCISION, TORUS MANDIBULARIS Procedures Routine Torus mandibularis Ordered: 07/05/[address] [facility] Comment on above: Ordered: 07/05/2023 extraction, erupted tooth or exposed root (elevation and/or forceps removal) EXTRACTION ERUPTED TOOTH/EXR Procedures Routine Caries Ordered: 07/05/2023 [employer] Work Phone: Comment on above: Ordered: 07/05/2023 EXTRACTION, TOOTH EXTRACTION, TO OTH Routine scheduled Caries [facility] Patient Education Bipolar Disord er (DC) [facility] DC Instructions Know your Meds [facility] Work Phone: Patient referral [facility] Work Phone: End: 07-05-2023 Urine test visual color cmprsn meths URINE HCG-IN OFFICE Lab Routine One time for 1 Occurrences starting 07/05/2023 until 07/05/2023 [employer] Work Phone: Comment on above: One time for 1 Occur kelly starting 07/05/2023 until 07/05/2023 Immunizations Immunization Date Immunization Notes Care Provider Shawn pedersenjefe 01-04-2021 Pfizer Monovalent (1 2+ yrs) SARS-COV-2 (COVID-19) vaccine, mRNA, spike protein, LNP, pres. free, 30 mcg/0.3mL dose (BWL=422) Hugo Larios DMD, MD Work Phone: [facility] 05-29-2015 influenza, injectabl e, quadrivalent, preservative free Hugo Larios DMD, MD Work Phone: [facility] 05-29-2015 pneumococcal conjuga te vaccine, 13 valent Huog Larios DMD, MD Work Phone: [facility] 05-29-2015 influenza virus vacc ine, unspecified formulation Hugo Larios DMD, MD Work Phone: [facility] Payers Date Payer Category Payer Self-pay [id number] 2022 Private Health Insurance [facility] [id number] 2022-Present [phone] [address] [place] [address] [id number] 2020 Medicaid [id number] 2019 Medicaid [facility] MEDICAID [facility] [employer] MEDICAID [id number] 2019-Present [phone] [address] [place] [address] Medicaid [id number] [id number] 1975 Unknown [id number] 2.16.840.1.310708.3.579. 2.727 1975 Unknown [id number] 2.16.840.1.814250.3.579. 2.593 1975 Unknown [id number] 2.16.840.1.296330.3.579. 2.593 1975 Unknown [id number] 2.16.840.1.743798.3.579. 2.593 1975 Unknown [id number] 2.16.840.1.074645.3.579. 2.732 1975 Unknown [id number] 2.16.840.1.334026.3.579. 2.732 1975 Unknown [id number] 2.16.840.1.269203.3.579. 2.732 1975 Unknown [id number] 2.16.840.1.891638.3.579. 2.732 1975 Unknown [id number] 2.16.840.1.144484.3.579. 2.1259 1975 Unknown [id number] 2.16.840.1.342681.3.579. 2.1259 1975 Unknown [id number] 2.16.840.1.227683.3.579. 2.1259 1975 Unknown [id number] 2.16.840.1.758352.3.579. 2.1286 1975 Unknown [id number] 2.16.840.1.267688.3.579. 2.1286 1975 Unknown [id number] 2.16.840.1.662557.3.579. 2.1286 1975 Unknown [id number] 2.16.840.1.862273.3.579. 2.1286 1975 Unknown [id number] 2.16.840.1.464724.3.579. 2.1286 1975 Unknown [id number] 2.16.840.1.121375.3.579. 2.1286 1975 Unknown [id number] 2.16.840.1.431311.3.579. 2.1286 1975 Unknown [id number] 2.16.840.1.257788.3.579. 2.1286 1975 Unknown [id number] 2.16.840.1.768214.3.579. 2.6 1975 Unknown [id number] 2.16.840.1.586386.3.579. 2.1286 1975 Unknown [id number] 2.16.840.1.015473.3.579. 2.1286 1975 Unknown [id number] 2.16.840.1.126006.3.579. 2.6 1975 Unknown [id number] 2.16.840.1.683512.3.579. 2.128 1975 Unknown [id number] 2.16.840.1.642077.3.579. 2.1286 1975 Unknown [id number] 2.16.840.1.037532.3.579. 2.1286 1975 Unknown [id number] 2.16.840.1.807327.3.579. 2.1286 1959 Private Health Insurance [id number] 1959 Unknown [id number] Unknown [id number] 2.16.840.1.140862.3.579. 2.531 Unknown [id number] 2.16.840.1.664256.3.579. 2.531 Social History Date Type Detail Facility Start: 02-10-2016 End: 09-16-2022 Tobacco smoking status NHIS Smokes tobacco daily [facility] History of tobacco use Cigarette Smoker [facility] Start: 02-10-2016 End: 10-17-2020 Cigarettes smoked current (pack per day) - Reported 0.5 [facility] Start: 02-10-2016 End: 09-16-2022 Tobacco use and exposure Smokeless tobacco non-user [facility] Start: 01-23-2020 Alcohol intake Current non-dr track supervisor of alcohol (finding) [facility] Start: 1975 Sex Assigned At Not on file [facility] Start: 12-05-2021 End: 12-15-2021 Exposure to SARS-CoV-2 (event) Not sure [facility] Start: 03-19-2021 Tobacco smoking status Never [facility] Start: 09-06-1987 End: 09-13-2023 Sex Assigned At Female [facility] Tobacco smoking stat [facility] Tobacco smoking consumption unknown [facility] Start: 05-08-2023 End: 04-18-2024 History of tobacco use Smoker (finding) [facility] Start: 06-30-2023 End: 11-25-2023 Alcohol intake Ex-drinker (finding) [facility] Start: 1975 Sex Assigned At Female [facility] Start: 09-16-2022 Education 14 [employer] Medical Equipment Procedure Code Equipment Code Equipment [...] NEUROSTIM INTELLIS MRI BATTERY FDA Start: 09-20-2017 Implantation, neurostimulator, spinal cord ANCHOR INJEX BI-WING FDA Start: 09-20-2017 Implantation, neurostimulator, spinal cord LEAD PADDLE MRI 65CM FDA Start: 09-20-2017 Implantation, neurostimulator, spinal cord NEUROSTIM INTELLIS MRI BATTERY FDA Start: 09-20-2017 Goals Date Patient Goal Desired Activity /State Functional Status Date Assessment Result Facility 04-21-2024 Functional status Patient at Baseline [facility] Work Phone: Mental Status Date Assessment Result Facility 04-21-2024 Cognitive function Cognitive Sta tus Patient at Baseline [facility] Work Phone: Clinical Notes 12-15-2021 to 04-20-2024 Note Date & Type Note Facility 04-20-2024 Progress note Note Date/Time April 20, 2024 11:03am [facility] [address] [place] [address] Psychiatry Progress Note Signed Patient: Nevaeh Guo MR#: [id number] : 1975 Acct:[id number] Age/Sex: 48 / F Adm Date: 4 Loc: 1S Room: [address] [place] [address] Type : ADM IN Attending Dr: Charli Valdez MD Copies to: ~ Date of Service: 04/20/2024 Subjective Subjective Narrative: Nevaeh Guo is a 48 year old female on day 3 of hospitalization for Bipolar Disorder with Psychosis and SI. Today, pt presented as being manic but was overall less agitated, distractible, and anxious. The pt mentioned that her anxiety and and depressive symptoms have improved and are at about a 5/10 in severity. Pt denies having auditory hallucinations or SI/HI but continues to exhibit racing thoughts. During the interview, pt mentioned that her biggest problems currently are her vertigo and allergies. Pt was prescribed Meclizine and Benadryl for these problems. The pt stated that she has a Social Security meeting tomorrow at 9 am and needs to be present for this. Pt for the first time was oriented in time, place,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 Reason for Referral Specialty Diagnoses / Procedures Referred By Alxea french Referred To Contact Oral Surgery Diagnoses Caries Procedures EXTRACTION ERUPTED TOOTH/EXR DEEP ANESTHESIA, 1ST 15 MINS GENERAL ANESTH EA ADDL 15 MIN Hugo Larios DMD, MD [address] [place] [address] Referral ID Status Reason Start Date Expiration Date V isits Requested Visits Authorized [id number] Pending Review 06/19/2023 06/19/2024 1 1 Scheduling [...] your procedure, you will be contacted with [id number] costs or next steps. All self-pay payments [...] the procedure: You also MUST have a logging truck driver/escort >18yrs old present to take you [...] pain, unspecified back pain laterality, unspecified chronicity Justyn Melendez MD [address] [place] [address] Peace Nelson, [facility] [address] [place] [address] Referral ID Status Reason Start Date Expiration Date Visits Requested Visits Authorized [id number] Pending Review Specialty Services Required/Pat ient's Best Interest 06/11/2022 06/11/2023 1 1 Chief Complaint and Reason for Visit Chief Complaint Sore throat, Poss ea r infection Chief Complaint bipolar bipolar Reason for Visit Bipolar disorder Additional Source Comments Source Comments (unrecognize d section and content) In the event this informatio n is protected by the Federal Confidentiality of Alcohol and Drug Abuse Patient Records regulations: The Federal rules restrict any use of the information to criminally investigate or prosecute any alcohol or drug abuse patient.[facility] Reason for Visit (unrecogniz ed section and content) Reason Comments Dizziness Hearing Loss Headaches Specialty Diagnoses / Procedures Referred By Alexa french Referred To Contact Oral Surgery Diagnoses Dental caries Nathan Victoria DDS [address] [place] [address] [facility] ORAL SURGERY [address] [place] [address] Referral ID Status Reason Start Date Expiration Date V isits Requested Visits Authorized [id number] Authorized 12/22/2022 12/23/2023 3 3 Specialty Diagnoses / Procedures Referred By Alexa french Referred To Contact Ambulatory Surgery Diagnoses Caries Caries [K02.9] Procedures UNLISTED PROCEDURE, DENTOALVEOLAR STRUCTURES ANESTHESIA, INTRAORAL PROC, W/BX; NOS EXTRACTION, TOOTH Hugo Larios DMD, MD [address] [place] [address] [facility] [address] [place] [id number] Phone: [phone] Referral ID Status Reason Start Date Expiration Date Visits Re quested Visits Authorized [id number] 3 3 Care Teams (unrecognized sec tion and content) [employer] Project Manager Relationship Specialty Start Date End Date Justyn Melendez MD [address] [place] [address] PCP - General Family Practice 10/12/19 Justyn Melendez MD [address] [place] [address] Family Practice 10/12/19 [employer] Manager Relationship Specialty Start Date End Date Justyn Melendez MD [address] [place] [address] (Work) PCP - General Family Medicine 06/10/22 [employer] Relationship Specialty Start Date End Date Hugo Larios DMD, MD [address] [place] [address] Physician Oral & Maxillofacial Surgery 07/10/23 Team Status: Active Member Role Status Dates Justyn Melendez MD Primary Care Provider Active Team Status: Inactive Member Role Status Dates Justyn Melendez MD Primary Care Provider Active Start: October 24, 2023 End: October 24, 2023 Nanci Spangler APRN Attending Provider Active S tart: October 24, 2023 End: October 24, 2023 [employer] Manager Relationship Specialty Start Date End Date Justyn Melendez MD [address] [place] [address] PCP - General Family Medicine 07/06/22 [employer] Relationship Specialty Start Date End Date Justyn Melendez MD [address] [place] [address] PCP - General Family Medicine 07/06/22 Team Status: Inactive Member Role Status Dates Justyn Melendez MD Primary Care Provider Active Start: April 17, 2024 End: April 21, 2024 Charli Valdez MD Admit Provide r, Attending Provider Active Start: April 17, 2024 End: April 21, 2024 Team Status: Active Member Role Status Dates Justyn Melendez MD Primary Care Provider Active Start: April 18, 2024 Charli Valdez MD Admit Provide r, Attending Provider, Other Provider Active Start: April 18, 2024 INFORMATION SOURCE (unrecogn ized section and content) DATE CREATED AUTHOR 12/20/2021 [facility] DATE CREATED AUTHOR AUTHOR'S ORGANIZ ATION 06/02/[address] [facility] DATE CREATED AUTHOR AUTHOR'S ORGANIZ ATION 02/12/2023 [facility] DATE CREATED AUTHOR AUTHOR'S ORGANIZ ATION 07/19/2023 [facility] DATE CREATED AUTHOR AUTHOR'S ORGANIZ ATION 01/18/2024 [facility] dical Specialists [facility] DATE CREATED AUTHOR AUTHOR'S ORGANIZ ATION 04/19/2024 [facility] DATE CREATED AUTHOR AUTHOR'S ORGANIZ ATION 04/24/2024 [facility] [place] [facility] Scheduled Active and Recently Administ ered [...] bupivacaine (MARCAINE) 10 mL, lidocaine-epinephrine (XYLOCAINE) 1 %-1:[id number] 10 mL, dose administered = 19 mL given 20 mL sc injection (CANCELED) PRN, Starting on Wed07/05/23 at 1539, Until Wed07/05/23 at 1653 1539 (Given - Provid er: Hugo Larios DMD, MD) Goals (unrecognized section and [...] BE BASED ON THE PRIMARY CLINICAL RECORDS. [facility]. provides no warranty or guarantee of the accuracy or completeness of information in this document.
== END 2024-04-28 08:55 | disposition home or self-care (01) ==
LOC: FL 08:54
PROVIDERS: PCP Family Medicine; Visit Provider Family Medicine
DX: K21.9 Gastro-esophageal reflux disease without esophagitis (principal)
CPT/HCPCS: 74246; 74248; 76120